=== PATIENT | female | born 1945 | race Caucasian/White ===

== ENCOUNTER → 2017-09-24 09:00 | Outpatient (CLI) | payer MEDICARE, SELFPAY ==
[2017-09-24] VITALS (7 sets, daily range): BP systolic 100–138; BP diastolic 59–77; PULSE 68–81; RESP 16–18; TEMP 36.3–36.9; O2SAT 95–98; BMI 31.5
== END ==
PROVIDERS: Family Provider Internal Medicine; PCP Internal Medicine; Visit Provider Internal Medicine
DX: D64.9 Anemia, unspecified (principal)
CPT/HCPCS: 36415; 36430; 86850; 86900; 86920; 86922; J7040; P9016; A4216

== ENCOUNTER 2019-01-24 15:35 | Emergency (ER) | payer MEDICARE, SELFPAY ==
[2019-01-24 15:36] VITALS: BP 181/87; PULSE 90; RESP 18; TEMP 37.3; O2SAT 98; BMI 32.3
--- NOTE | 2019-01-24 15:45 | CT_ITS ---
STUDY: CT BRAIN WITHOUT CONTRAST REASON FOR EXAM: Female, 73 years old. Fall. Pain. RADIATION DOSAGE (If Supplied By Facility): CTDIvol = ( 44.99 ) mGy, DLP = ( 762.36 ) mGycm TECHNIQUE: Transaxial CT imaging of the brain was performed without administration of intravenous contrast material. Individualized dose optimization techniques were used for this CT. COMPARISON: None. FINDINGS: There is no acute bleed or infarct. There are chronic ischemic and atrophic changes. The ventricles are normal in configuration. There is no hydrocephalus. The visualized paranasal sinuses are clear. The mastoid air cells are well aerated. There is no skull fracture. CT/Brain/Head without Contrast IMPRESSION: No acute intracranial abnormality. Chronic ischemic and atrophic changes. Electronically Signed: Daquan Arthur, at 16:27 EDT Tel , Service support ,
--- NOTE | 2019-01-24 15:46 | RAD_ITS ---
STUDY: X-RAY - LEFT RADIUS AND ULNA REASON FOR EXAM: Female, 73 years old. Fall TECHNIQUE: 2 view(s) of the forearm. COMPARISON: None. FINDINGS: There are angulated, displaced fractures in the distal aspect of the left radius and left ulna. There is approximately 1.5 cm a fracture fragment overlap of the ulna and 2 cm of the fracture fragment overlap of the radius. The remainder of the visualized osseous structures are intact. There are no radiodense foreign bodies. RAD/Forearm 2 Views IMPRESSION: Angulated, displaced fractures in the distal left radius and left ulna with fracture fragment overlap. Electronically Signed: Daquan Arthur, at 16:31 EDT Tel , Service support ,
[2019-01-24] MEDS: Ondansetron 4 MG/2 ML Vial IV (15:58)
[2019-01-24] MEDS: Morphine 4 MG/ML Syringe IV ×2 (15:59→16:48)
[2019-01-24 16:41] VITALS: BP 171/74; PULSE 90; RESP 16; O2SAT 98
--- NOTE | 2019-01-24 17:07 | ED.DCSUM_ITS ---
- ER Visit Summary Date of Service: 01/24/19 Chief Complaint: [Fall and injury to left arm] History of Present Illness: The patient is a 73 F [presents to the emergency department after sustaining a fall this afternoon while clocking and at work. Patient states that she tripped over her feet and fell injuring her left arm. Patient did bump her face on the ground but no loss of consciousness. She denies any neck pain. She denies any chest pain or abdominal pain. Patient is right-hand dominant. Patient not on any blood thinners. Patient has history of hypertension and high cholesterol.] Physical Examination: [HEENT-PERRLA, EOMI. Cranial nerves II through XII grossly intact. TMs clear. Mucous membranes moist. No adenopathy. He has some mild tenderness over the left cheekbone with no deformity. Cardiovascular-regular rate and rhythm without murmur or ectopy Lungs-clear to auscultation, chest wall stable without crepitus or subcu emphysema Abdomen-normoactive bowel sounds, soft, nontender, no rebound or rigidity, no peritoneal signs. Extremities-intact ?4, normal range of motion, normal pulses. Left forearm- patient does have soft tissue swelling and obvious deformity over the mid forearm. Patient has no open areas to the skin noted. She is neurovascular intact with normal range of motion of all digits. No pain at the elbow.] Test Results: [CT scan of the brain without contrast showed chronic involutional changes. X-rays of the left forearm showed fractures of the distal radius and ulna 100% displaced with bayonet apposition.] Emergency Department Course and Treatment: [Case was discussed with orthopedic surgeon on-call evaluated the x-rays and recommended I splint the patient and he will see the patient in the office tomorrow. Patient was placed in a AP short arm splint and given a sling.] Patient was medicated with morphine and Zofran. Treatment Plan: [She will be given a prescription for Percocet and she will follow-up with orthopedics tomorrow] Disposition: [Discharged home in stable condition] Impression: [Left radius and ulna fractures] This note was generated with Wummelboxation software. It may contain incorrect words, spelling, and punctuation that were not noted in review of the chart prior to signing ED Disposition - Plan for ED Patient: Referrals: Lay Kaur MD [Primary Care Provider] -
--- NOTE | 2019-01-24 17:10 | ED.DEP ---
ED Disposition - Plan for ED Patient: Instructions: FALL, Mechanical, COLLES FRACTURE, Reduction Required Prescriptions: Oxycodone HCl/Acetaminophen [Percocet 5/325] 1 tab PO Q6H PRN PRN 5 Days #20 tab PRN Reason: Pain Prescription Printed Referrals: Lay Kaur MD [Primary Care Provider] - Mauro Farrar DO [STAFF PHYSICIAN] - 1 Day
[2019-01-24 17:34] VITALS: BP 158/78; PULSE 81; RESP 16; O2SAT 97
== END 2019-01-24 17:59 | disposition home or self-care (01) ==
PROVIDERS: Emergency Provider Emergency Medicine; Family Provider Internal Medicine; PCP Internal Medicine
DX: S52.502A Unspecified fracture of the lower end of left radius, initial encounter for closed fracture (principal); S52.692A Other fracture of lower end of left ulna, initial encounter for closed fracture; W01.0XXA Fall on same level from slipping, tripping and stumbling without subsequent striking against object, initial encounter; I10 Essential (primary) hypertension; E78.00 Pure hypercholesterolemia, unspecified
CPT/HCPCS: 70450; 73090; 96374; 96375; 96376; 99285; A4216; J2405

== ENCOUNTER 2019-01-26 12:12 | Day surgery (SDC) | payer MEDICARE, SELFPAY ==
[2019-01-25 11:18] VITALS: BMI 32.3
[2019-01-26] VITALS (11 sets, daily range): BP systolic 102–159; BP diastolic 47–94; PULSE 68–104; RESP 12–18; TEMP 36.8–37.2; O2SAT 91–97; BMI 30.1
--- NOTE | 2019-01-26 07:19 | PCM.HP.BLA ---
History and Physical Date of Admission: 01/26/19 Intake Vital Signs 01/25/19 Body Mass Index (BMI) 32.3 Intake Visit Reasons: left forearm Chief Complaint: left arm fracture Accompanied by: Son Is patient in pain?: Yes Pain scale (1-10): 8 Allergies pseudoephedrine [From Sudafed] Allergy (Intermediate, Verified 01/25/19 10:14) Rash acetaminophen [From Vicodin] Adverse Reaction (Verified 01/25/19 10:14) Other hydrocodone [From Vicodin] Adverse Reaction (Verified 01/25/19 10:14) Other Medications Amlodipine Besylate 2.5 mg PO DAILY 01/24/19 [History Confirmed 01/25/19] Citalopram Hydrobromide [Citalopram HBr] 10 mg PO DAILY 01/24/19 [History Confirmed 01/25/19] Lisinopril 10 mg PO DAILY 01/24/19 [History Confirmed 01/25/19] Oxycodone HCl/Acetaminophen [Percocet 5/325] 1 tab PO Q6H PRN PRN 5 Days #20 tab 01/24/19 [Rx Confirmed 01/25/19] Simvastatin 20 mg PO DAILY 01/24/19 [History Confirmed 01/25/19] Zolpidem Tartrate 10 mg PO QHS PRN 01/24/19 [History Confirmed 01/25/19] Aspirin [Aspir 81] 81 mg PO QHS 01/25/19 [History Confirmed 01/25/19] Calcium (Elemental) [Os-Alli 500] 500 mg PO DAILY@0800 01/25/19 [History Confirmed 01/25/19] Cholecalciferol (Vitamin D3) [Vitamin D3] 2,000 unit PO DAILY 01/25/19 [History Confirmed 01/25/19] Cyanocobalamin (Vitamin B-12) [Vitamin B-12] 500 mcg PO DAILY 01/25/19 [History Confirmed 01/25/19] Folic Acid 1 mg PO DAILY 01/25/19 [History Confirmed 01/25/19] Pyridoxine HCl (Vitamin B6) [Vitamin B-6] 250 mg PO DAILY 01/25/19 [History Confirmed 01/25/19] Turmeric Root Extract [Turmeric] 500 mg PO DAILY 01/25/19 [History Confirmed 01/25/19] PFSH Medical History (Updated 01/25/19 @ 11:27 by Simona Banda) Anemia (Acute) High cholesterol (Acute) Osteoporosis (Acute) CKD (chronic kidney disease) (Chronic) HTN (hypertension) (Chronic) Social History (Updated 01/25/19 @ 13:03 by Mauro Farrar DO) Smoking Status: Never smoker HPI left forearm: Details: Parts of this documentation were recorded by a scribe, this documentation accurately reflects the service provided and the decisions made by me, Mauro Farrar DO 01/25/19 1118. AMOR PARISI is a 73 year old F NEW patient here today for left forearm fx. Patient states she works at [employer] and she was rushing to clock in at work and tripped and fell and she but her arm out behind her and she has a fx. Does have numbness and tingling of all of her fingers. Does have osteoporosis. Patient is left handed. ROS Const Reports system reviewed and no additional complaints, except as docu Eyes Reports system reviewed and no additional complaints, except as docu ENT Reports system reviewed and no additional complaints, except as docu Card Reports system reviewed and no additional complaints, except as docu Resp Reports system reviewed and no additional complaints, except as docu GI Reports system reviewed and no additional complaints, except as docu Musc Reports system reviewed and no additional complaints, except as docu, Reports as per HPI Skin/Breast Reports system reviewed and no additional complaints, except as docu Neuro Yes system reviewed and no additional complaints, except as docu Psych Reports system reviewed and no additional complaints, except as docu Endo Reports system reviewed and no additional complaints, except as docu Darron/Lymph Reports system reviewed and no additional complaints, except as docu Aller/Immun Reports system reviewed and no additional complaints, except as docu Ortho Exam Right Wrist/Hand Skin/Wound: Yes Swelling, Yes Ecchymosis Left Wrist/Hand Skin/Wound: Yes Swelling, Yes Ecchymosis, Yes capillary refill normal, No erythema WRIST: No open lesions positive wrinkle sign able to spread fingers slightly significant pain with any attempted motion nontender at the elbow sensation intact but diminished all of the fingers Assessment & Plan Problems 1. Closed displaced transverse fracture of shaft of left radius, initial encounter S52.322A 2. Closed displaced transverse fracture of shaft of left ulna, initial encounter S52.222A Plan Explained that she has a both bone forearm fracture, shaft of radius and ulna. She will need to have an ORIF of each to re-align. Reviewed the surgical procedure to be done tomorrow but that she will be able to work on rom and go to OT after one week. She will have a lifting restrictions of small coffee cup, she will be able to write and move her fingers. Instructed to elevate above her heart to limit any additional swelling. Re-dressed today. Reviewed the pre-operative plans with the patient. Risks and benefits of the procedure were fully explained, including but not limited to infection, neurovascular injury, continued pain, arthritis, stiffness, need for further surgery, re-injury, DVT, PE, general risks of anesthesia, and loss of limb or life. The patient understands all the risks and does wish to proceed with written consent. Follow up a week after surgery for OT and two weeks for suture removal or sooner if pain, swelling, numbness or associated symptoms, or concerns develop. All questions answered. Patient in agreement of plan. Coding Level of Care Code Off vis,new,level 3 Diagnoses Closed displaced transverse fracture of shaft of left radius, initial encounter S52.322A ??Encounter type: initial encounter ??Fracture morphology: transverse ??Fracture type: closed Closed displaced transverse fracture of shaft of left ulna, initial encounter S52.222A ??Encounter type: initial encounter ??Fracture morphology: transverse ??Fracture type: closed I have re-examined the patient. There are no clinical changes since date of exam
--- NOTE | 2019-01-26 12:30 | EKG12_ITS ---
Test Reason : PRE OP Blood Pressure : / mmHG Vent. Rate : 070 BPM Atrial Rate : 070 BPM P-R Int : 168 ms QRS Dur : 090 ms QT Int : 416 ms P-R-T Axes : 115 -24 036 degrees QTc Int : 449 ms Normal sinus rhythm Normal ECG When compared with ECG of 15-MAY-2010 09:31, No significant change was found Confirmed by RODOLFO KITCHEN, SOFIE ([id number]), supervising editor news reel CHIP LANGSTON ([id number]) on 01/29/2019 10:27:44 A M Referred By: Mauro Farrar Confirmed By:MARBELLA REYNOLDS MD
[2019-01-26] MEDS: Lactated Ringers 1,000 ML 100 ML IV ×2 (13:05→18:38)
[2019-01-26 13:15] LABS: Hematocrit 35.3 % (37-47); Hemoglobin 11.6 g/dL (12.0-15.0); Mean Corp Hgb Conc 32.9 g/dL (32-36); Mean Corpuscular Hgb 31.6 pg (27.0-32.0); Mean Corpuscular Volume 96.2 fL (81-99); Mean Platelet Vol. 8.8 fl (6.2-12.0); Platelet Count 300 K/mm3 (150-450); RBC Distribution Width CV 13.8 % (11.6-14.6); RBC Distribution Width SD 49.3 fl (35.1-43.9); Red Blood Count 3.67 M/mm3 (4.2-5.4); White Blood Count 5.8 K/mm3 (4.4-11.0)
[2019-01-26 13:22] LABS: Prothrombin Time (Protime)PT. 13.4 SECONDS (11.7-14.9)
[2019-01-26 13:23] LABS: Partial Thromboplast Time 27.9 Seconds (24.1-36.2)
--- NOTE | 2019-01-26 13:25 | RAD_ITS ---
STUDY: X-RAY CHEST REASON FOR EXAM: Female, 73 years old. Preoperative evaluation. TECHNIQUE: PA and lateral views of the chest. COMPARISON: None. FINDINGS: Hyperinflation. Minimal increased markings at the lung bases suggestive of mild bibasilar scarring. There is no demonstrated pleural abnormality. Normal size heart. Normal mediastinum and loco. Normal visualized pulmonary arteries. There is atherosclerotic tortuosity of the aortic arch and descending thoracic aorta. There are diffuse degenerative changes of the visualized thoracic spine. Normal visualized ribs, clavicles, and shoulders. Moderate size. RAD/Chest PA and Lateral IMPRESSION: Findings suggestive of mild bibasilar scarring. Moderate sized hiatal hernia. Electronically Signed: Avi Lemus, at 14:04 EDT , Service support ,
[2019-01-26 13:35] LABS: AST(SGOT) 25 U/L (15-37); Alanine Aminotransfer ALT/SGPT 38 U/L (13-56); Albumin, Serum 3.2 g/dL (3.2-5.0); Alkaline Phosphatase 82 U/L (45-117); Bilirubin, Direct 0.08 mg/dL (0.00-0.30); Globulin 3.6 g/dL (2.2-4.2); Protein, Total 6.8 g/dL (6.4-8.2)
[2019-01-26] MEDS: Cefazolin 2 GM in 0.9% Normal Saline 100 ML IV (15:59)
--- NOTE | 2019-01-26 16:15 | RAD_ITS ---
STUDY: X-RAY - LEFT RADIUS AND ULNA REASON FOR EXAM: Female, 73 years old. ORIF left radius and ulna. TECHNIQUE: 2 C-arm view(s) of the forearm. 12.8 seconds fluoroscopy time COMPARISON: None. FINDINGS: These images show compression plate and screws along the shafts of the radius and ulna fixating fractures into anatomic alignment and position. Correlate with procedure note. Electronically Signed: Que Hook MD at 22:25 EDT , Service support , RAD/Forearm 2 Views
--- NOTE | 2019-01-26 17:49 | DCINST_ITS ---
Discharge Diet: No Restrictions Call your doctor if you observe: Fever of 101 or Higher, Shortness of breath, Chest pain Additional Instructions: Strict ice and elevation 1 week hand higher than elbow elbow higher than heart this is very important. Encourage finger and elbow range of motion keep splint on clean dry and intact. Call with any questions or concerns. Follow-up with Dr. Farrar 1 week for splint removal and start physical therapy at that time. With any questions or concerns Allergies/Adverse Reactions: Allergies pseudoephedrine [From Sudafed] Allergy (Intermediate, Verified 01/25/19 10:14) Rash acetaminophen [From Vicodin] Adverse Reaction (Verified 01/25/19 10:14) Other Crawling out of my skin, couldn't keep me in bed hydrocodone [From Vicodin] Adverse Reaction (Verified 01/25/19 10:14) Other Crawling out of my skin, couldn't keep me in bed Medications to take at Discharge Amlodipine Besylate 2.5 mg PO DAILY 01/24/19 Citalopram Hydrobromide [Citalopram HBr] 10 mg PO DAILY 01/24/19 Lisinopril 10 mg PO DAILY 01/24/19 Oxycodone HCl/Acetaminophen [Percocet 5/325] 1 tab PO Q6H PRN PRN 5 Days #20 tab 01/24/19 Simvastatin 20 mg PO DAILY 01/24/19 Zolpidem Tartrate 10 mg PO QHS PRN 01/24/19 Aspirin [Aspir 81] 81 mg PO QHS 01/25/19 Calcium (Elemental) [Os-Alli 500] 500 mg PO DAILY@0800 01/25/19 Cholecalciferol (Vitamin D3) [Vitamin D3] 2,000 unit PO DAILY 01/25/19 Cyanocobalamin (Vitamin B-12) [Vitamin B-12] 500 mcg PO DAILY 01/25/19 Folic Acid 1 mg PO DAILY 01/25/19 Pyridoxine HCl (Vitamin B6) [Vitamin B-6] 250 mg PO DAILY 01/25/19 Turmeric Root Extract [Turmeric] 500 mg PO DAILY 01/25/19 Oxycodone HCl/Acetaminophen [Percocet 5/325] 1 - 2 tab PO Q4H PRN PRN 5 Days #50 tab 01/26/19 The following prescriptions were given: Oxycodone HCl/Acetaminophen [Percocet 5/325] 1 - 2 tab PO Q4H PRN PRN 5 Days #50 tab PRN Reason: Pain Transmission Status: Received by [facility] #30 Primary Care Physician: Lay Kaur MD [Primary Care Provider] - Test Results: Test results from this visit will be discussed in further detail at your follow- up appointment, if applicable. Please Follow Up With: Mauro Farrar DO - 1 week
--- NOTE | 2019-01-26 17:50 | OP.PCM_ITS ---
Report of Operation Date of Procedure: 01/26/19 Description of Surgical Findings:: Preoperative diagnosis: Displaced complete fractures of both radial and ulnar shaft Postoperative diagnosis: Same Procedure: ORIF of radius and ORIF of ulnar shaft Implants: Synthes titanium 3.5 LCDC plates 6-hole x2 Allergy: Nickel Tourniquet time: 60 minutes Complications: None Indication for procedure: 73-year-old female patient who had a fall tripping on her own feet at work landing onto an outstretched hand to proceed emergency room department where x-rays demonstrated a both bone forearm fracture that was completely displaced she was sent to the orthopedic office where I saw her and put her on the schedule for the following day. we discussed risks benefits and alternatives of conservative versus surgical intervention. Including the risk of bleeding infection nerve artery tissue damage need for further surgery co ntinued pain postoperative stiffness need for postoperative physical therapy and the expected postoperative course. Procedure: The patient was met in the preoperative holding area the operative extremity was identified by both patient and physician and marked. Patient was met by anesthesia she was brought back to the operating room on a wheeled cart and transferred to the operating table in the supine position anesthesia was started. A well-padded tourniquet was placed on the upper arm of the operative extremity. She was prepped and draped in the usual sterile fashion. A Time out was called to ensure the proper patient procedure and extremity were being contemplated. A 15 blade scalpel was used to make a linear incision over the FCR tendon this was carried down through the skin and subcutaneous tissue. The level between FCR and brachioradialis was identified the radial artery was able to be kept with a mobile wad as a fracture was not exceedingly proximal the pronator teres and ask her pollicis longus were traumatically torn from the radius. Fracture was easily identified and with the use of lobster claws reduction was performed followed by the application of a 6-hole LCDC plate. Being a titanium set due to her nickel allergy there was only 6 14 mm screws and due to her age I decided to put 2 cortical screws adjacent to the fracture and 2 locking screws in the middle of the plate on each and and cortical screws on both ends of the plate. Excellent reduction and fixation was achieved attention was turned towards the ulna direct lateral approach was used between the extensor and flexor carpi ulnaris fracture was reduced process was repeated final fluoroscopic images were taken and saved to the PACS system thorough irrigation of both wounds were performed followed by deep closure subcutaneous closure with Vicryl and luisito in the skin. A injection with quarter percent Marcaine with epinephrine was injected into both incisional sites and a volar plaster splint was applied patient tolerated the procedure well there is no intraoperative complications all counts were correct she was brought to the PACU in stable condition
== END 2019-01-26 20:12 | disposition home or self-care (01) ==
LOC: SDC 12:14 → AC 12:16
PROVIDERS: Anesthesiology; Family Provider Internal Medicine; PCP Internal Medicine; Referring Provider Orthopaedic Surgery; Visit Provider Orthopaedic Surgery
PROC: (CPT 25515; principal; 2019-01-26 13:45)
DX: S52.222A Displaced transverse fracture of shaft of left ulna, initial encounter for closed fracture (principal); S52.322A Displaced transverse fracture of shaft of left radius, initial encounter for closed fracture; W01.0XXA Fall on same level from slipping, tripping and stumbling without subsequent striking against object, initial encounter; I12.9 Hypertensive chronic kidney disease with stage 1 through stage 4 chronic kidney disease, or unspecified chronic kidney disease; N18.9 Chronic kidney disease, unspecified; M81.0 Age-related osteoporosis without current pathological fracture; K44.9 Diaphragmatic hernia without obstruction or gangrene; Z79.82 Long term (current) use of aspirin; Z88.5 Allergy status to narcotic agent
CPT/HCPCS: 25515; 64450; 36415; 71046; 73090; 76000; 80076; 85027; 85610; 85730; 93005; C1713; J7120; J2405

== ENCOUNTER 2019-03-22 14:00 | Outpatient (RCR) | payer MEDICARE, SELFPAY ==
[2019-01-25 11:18] VITALS: BMI 32.3
[2019-02-01 13:14] VITALS: BMI 30.1
--- NOTE | 2019-02-11 12:48 | HP.OTEVAL_ITS ---
Patient's Visit Information DREAD PARISI is a 73 year old F, referred to Occupational Therapy by Mauro Farrar DO, with a diagnosis of S/P L ORIF raidus and ulna. Date of Evaluation: 02/11/19 Occupational Therapist: Ashia Pruitt, OTR/L - Subjective Subjective: Dread Sherwood was referred to OT s/p fracture of L ulna and radius from mechanical fall at [facility]. She works at [employer] part-time and noted was hurrying to clock in and tripped and fell. She is left handed and injury has occured to L side. Noted previously retired for 7 years and working 4 hour shifts helps 'keep her moving'. - ADLs Dressing: Bra, Button shirt, Pants, Socks, Shoes Fasteners: Buttons, Zippers, Snaps Eating: Use silverware, Cut food Bathing: Handle washcloth & soap, Wash hair, Squeeze shampoo bottle Toileting: Manage clothing Kitchen: Chop with knife, Peel fruits & vegetables, Open jars, Open bottle caps, Ziplock bags, Lift gallon of milk, Pour from pitcher, Lift saucepan, Take dish out of oven, Load/unload paralegal legal secretary, Place dish in microwave Household: Sweep/mop, Dust, Laundry Yard: Mow lawn, [place], [place], Use pruners Miscellaneous: Use remote control, Use cell phone, Unlock front door, Handle money (change), Hold change, Take things out of wallet, Open envelope, Carry shopping bag, Write, Turn pages in book, Use computer keyboard, Drive, Function in drive through window - Pain left wrist 7 Pain Intensity Range: 2, 9 - Objective Concerns: She will only complete 1x session per week; due to 25 dollar copay she is unwilling to come in more times a week at this time and would prefer to completed majoirty of exercises at home. - ROM Forearm: sup L 0-70, R 0-86; pro L 0-49, R 0-76 Wrist: flexion L 0-42, R 0-60; ext L 0-39, R 0-44; ulnar dev L 0-17, R 0-29; ROM Comments: Radial dev: L 0-7, R 0-15. She is able to make full composite fist. 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 - Edema Wrist: R figure 8 15.5 inches, L figure 8: 16 inches Other: Wrist: R circumference 6.4;L circumference 6.8 inches; pocked edema noted. - Sensation Thumb: R 2.38, L 2.38 Index: R 2.38, L 2.38 Middle: R 2.38, L 2.38 Ring: R 2.38, L 2.38 Little: R 2.38, L 2.38 - Nine Hole Peg Right: 21.05 s Left: 25.30 s Comments: L hand dominant - Quick DASH-Disab of Arm,Shoulder& Hand Quick DASH Score: 90.0000 - Goals Goal:: Perkaileen to increased L golf cart mechanic strength by 20- 25 lbs to promote increased strength and ROM 4/5 trials 80% of the time to promote returning to PLOF and ability to complete job related tasks by d/c. Goal:: Presley to complete increased ROM of L wrist by 5-10 degrees in all plans for ADL/IADLs 4/5 trials 80% of the time by d/c. Goal:: Dread to have no jane than 0-1/10 pain in L wrist for ADL/IADLs related tasks 4/5 trials 80% of the time by d/c. Goal:: Youy to be mod I to complete edema reduction of L wrist to promote increased ROM 4/5 trials 80% of the time by d/c. Goal:: Presley to be (I) to complete all ADl/IADls at [facility] including pealing fruits & vegetables, fasteners, etc. 4/5 trials 80% of the time to promot returning to PLOF by d/c. Goal:: Presley to be mod I to complete daily HEP rotuine to promote strength and endurance 4/5 trials 80% of the time by d/c. - Rehabilitation General Assessment: Dread Sherwood Is s/p L ORIF of radius and ulna due to mechanical fall at work. She noted fall occured prior to clock in as she was hurrying to complete task. As a result of fall she has also bruise ribs and noted increased pain in ribs and L wrist. She is L hand dominant. Perky exhibit poor ROM and strength due to fall. She would benefit from skilled OT services 1x weekly for the next 4 -6 weeks. Rehabilitation Potential: Good - Anticipated Interventions Anticipated Interventions: A/AAROM/PROM, Strengthening, Edema Control, Scar Care, Massage, Wound Care, Modalities, Orthoses, Joint Protection/Energy Conservation, Ergonomic Education, Fine Motor Coord/Justin, ADL Training, Caregiver Training, Home Program - Visit Plan Frequency: 1x/Week Duration: 4-6 Weeks General Plan: Perky to complete ROM, Strengthening with PRE, edema management techniques, and general conditioning to promote returning to PLOF. TEXT: Thank you for the opportunity to evaluate your patient. For Medicare and Medicare HMO plans, please review the plan of care and approve it. It will need to be FAXED BACK to us at [phone] for Medicare purposes. Please let me know if there are questions or concerns regarding this plan of care. Physician Signature: Date:
--- NOTE | 2019-03-03 13:00 | HP.OTCOM ---
OT Communication Note 03/03/[address] Mauro Farrar, DO Completed additional measurements today 03/03/19 as she has follow up with Dr. Farrar: ROM Wrist - flexion: R WFL, L 0-56 - extension: R WFL, L 0-40 - supination: R WFL, L 0-53 - ulnar deviation: R WFL, L 0-35 - radial deviation: R WFL, L 0-16 Strength: Barbed Wire Machine Operator R WFL, L 26 lateral R WFL, L 2 tripod R WFL, L 4 pincer R WFL, L 2 lbs Increased tenderness with palpation of L radius, hard end feel noted at about 3 inches from distal radius head, around shaft. Additionally, increased pocketed edema around ulna likely to displacement. In general, ROM and strength is progressing but some decreased pinch noted. Will continue POC set up at evaluation with further reassessment in about 1-2 weeks. Sincerely, Ashia Pruitt, OTR/L Contact Information
--- NOTE | 2019-03-22 15:06 | HP.OTREVAL ---
Mauro Farrar, DO, It has been my pleasure to treat DREAD PARISI over the last 7 visits for S/P L ORIF raidus and ulna. Please see the progress note below for an update on the occupational therapy plan of care! Subjective: Arrived and noted that today is pretty good day. She has decided to return to work 04/05/19. She noted that she will be returning to regular shift of 4 hours increments for 2-3x days per week. Feels 80-85% back to PLOF. Objective/Function: Completed new measurements today 03/22/19 and are as follows: ROM: wrist: - flexion: R WFL, L 0-68. - extentsion: R WFL, 0-39. - Supination: R WFL, L 0-62. - radial devaition: R WFL, L 0-21. - ulnar deviation: R WFL, L 0-31. 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 - lateral R 5, L 2. - tripod R 6, L 5. - pincer R 2, L 3. She has progressed since inital evaluation. Increased MP hyperext noted on left thumb. She is left hand dominant. Plan Frequency: Monthly Duration: 2 Months Visits in this POC: 2 Plan: OT to keep chart open for the next month. She is to continue HEP as instructed with additional thumb-based exercises. If all is going well when returning to work is going as planned she is to let OT know and chart will be d/c'd if not she is to return and further assessment and problem solving to occur to manage pain. 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 Goal:: Perky to complete increased ROM of L wrist by 5-10 degrees in all plans for ADL/IADLs 4/5 trials 80% of the time by d/c. Goal:: Dread to have no jane than 0-1/10 pain in L wrist for ADL/IADLs related tasks 4/5 trials 80% of the time by d/c. Goal:: Perky to be mod I to complete edema reduction of L wrist to promote increased ROM 4/5 trials 80% of the time by d/c. Goal:: Perky to be (I) to complete all ADl/IADls at PLOF including pealing fruits & vegetables, fasteners, etc. 4/5 trials 80% of the time to promot returning to PLOF by d/c. Goal:: Perky to be mod I to complete daily HEP rotuine to promote strength and endurance 4/5 trials 80% of the time by d/c. Anticipated Interventions Anticipated Interventions: A/AAROM/PROM, Strengthening, Edema Control, Scar Care, Massage, Wound Care, Modalities, Orthoses, Joint Protection/Energy Conservation, Ergonomic Education, Fine Motor Coord/Justin, ADL Training, Caregiver Training, Home Program Please do not hesitate to contact me at [phone] by phone or if you have questions or concerns regarding this new plan of care! Sincerely, Ashia Pruitt, OTR/L
--- NOTE | 2019-05-04 13:06 | HP.OTDCSUM ---
HP - OT D/C Summary It has been my pleasure to treat DERAD PARISI under orders from Mauro Farrar DO, for the diagnosis of S/P L ORIF raidus and ulna for a total of 7 visit(s). Please see the following information for a summary of their discharge status. - Overall Improvement % Improvement: 85 - Objective Objective/Function: Completed new measurements today 03/22/19 and are as follows: ROM: wrist: - flexion: R WFL, L 0-68. - extentsion: R WFL, 0-39. - Supination: R WFL, L 0-62. - radial devaition: R WFL, L 0-21. - ulnar deviation: R WFL, L 0-31. Strength: - planning consultant: R 43, L 29. - lateral R 5, L 2. - tripod R 6, L 5. - pincer R 2, L 3. She has progressed since inital evaluation. Increased MP hyperext noted on left thumb. She is left hand dominant. - Goals Patient Goals: Regain Mobility, Regain Strength, Decrease Pain, Return to Work, Decrease Swelling/Stiffness, Improve Fine Motor Skills, Use Hand/Wrist/Arm Normally Again, Sleep Better, Increase ROM, Be More Independent in ADLS, Resume Former Household Responsibilities (Cooking,Cleaning,Yard, etc.), Resume Hobbies Goal:: Perky to increased L planning consultant strength by 20- 25 lbs to promote increased strength and ROM 4/5 trials 80% of the time to promote returning to PLOF and ability to complete job related tasks by d/c. Goal:: Perky to complete increased ROM of L wrist by 5-10 degrees in all plans for ADL/IADLs 4/5 trials 80% of the time by d/c. Goal:: Dread to have no jane than 0-1/10 pain in L wrist for ADL/IADLs related tasks 4/5 trials 80% of the time by d/c. Goal:: Perky to be mod I to complete edema reduction of L wrist to promote increased ROM 4/5 trials 80% of the time by d/c. Goal:: Perky to be (I) to complete all ADl/IADls at PLOF including pealing fruits & vegetables, fasteners, etc. 4/5 trials 80% of the time to promot returning to PLOF by d/c. Goal:: Perky to be mod I to complete daily HEP rotuine to promote strength and endurance 4/5 trials 80% of the time by d/c. - Plan Plan: She did not return due to pain and chart will be d/c'd. - D/C Information If there are questions or concerns regarding this patient's occupational therapy, please fell free to call me at [phone]. Thank you for the referral of this patient. Sincerely, Ashia Pruitt, OTR/L
== END 2019-03-22 19:00 | disposition home or self-care (01) ==
LOC: OT 14:00
PROVIDERS: Family Provider Internal Medicine; PCP Internal Medicine; Referring Provider Orthopaedic Surgery; Visit Provider Orthopaedic Surgery
DX: Z98.890 Other specified postprocedural states (principal)
CPT/HCPCS: 97110; 97140; 97166; 97168; 97530

== ENCOUNTER 2020-06-16 12:01 | Emergency (ER) | payer MEDICARE, SELFPAY ==
[2019-03-08 10:16] VITALS: BMI 30.1
[2020-06-16 12:07] VITALS: BP 131/60; PULSE 67; RESP 16; TEMP 36.7; O2SAT 95; BMI 33.7
[2020-06-16 12:54] VITALS: BP 127/60; PULSE 78; RESP 20; O2SAT 92
--- NOTE | 2020-06-16 13:01 | EKG12_ITS ---
Test Reason : DIZZY Blood Pressure : / mmHG Vent. Rate : 066 BPM Atrial Rate : 066 BPM P-R Int : 186 ms QRS Dur : 106 ms QT Int : 440 ms P-R-T Axes : 040 -22 023 degrees QTc Int : 461 ms Normal sinus rhythm Normal ECG Confirmed by RODOLFO KITCHEN, SOFIE ([id number]), editor dictionary CHIP LANGSTON ([id number]) on 06/19/2020 11:39:56 A M Referred By: ED Confirmed By:MARBELLA REYNOLDS MD
--- NOTE | 2020-06-16 13:07 | RAD_ITS ---
STUDY: X-RAY CHEST REASON FOR EXAM: Female, 74 years old. SYNCOPE, VOMITING -- HTN TECHNIQUE: Single AP portable view of the chest. COMPARISON: Comparison is made with prior study dated 01/26/2019. FINDINGS: EKG electrodes are seen. Hyperinflation. The lungs are clear. There is no demonstrated pleural abnormality. There is mild cardiac enlargement. Normal mediastinum and loco. Normal visualized pulmonary arteries. There is atherosclerotic calcification of the aortic arch with tortuosity. There are diffuse degenerative changes of the visualized thoracic spine. Normal visualized ribs, clavicles, and shoulders. Moderate sized hiatal hernia. RAD/Chest 1 View (Portable) IMPRESSION: Cardiomegaly. Hiatal hernia. Electronically Signed: Avi Lemus MD at 13:32 EST , Service support ,
[2020-06-16 13:18] VITALS: PULSE 75; RESP 20; O2SAT 95
[2020-06-16 13:19] LABS: Absolute Lymphocyte Count 2.76 X10^3/uL (0.83-4.51); Basophil# 0.05 X10^3/uL; Basophil% 0.6 % (0-1); Eosinophil# 0.19 X10^3/uL; Eosinophils% 2.4 % (0-5); Hematocrit 39.5 % (37-47); Hemoglobin 12.6 g/dL (12.0-15.0); Lymphocyte # 2.76 X10^3/ul (4.0); Mean Corp Hgb Conc 31.9 g/dL (32-36); Mean Corpuscular Hgb 29.7 pg (27.0-32.0); Mean Corpuscular Volume 93.2 fL (81-99); Mean Platelet Vol. 9.1 fl (6.2-12.0); Monocyte% 10.1 % (0-10); NRBC Flagged by Analyzer 0 % (0-5); Neutrophil # 4.03 X10^3/uL (2.7-7.7); Neutrophil % 51.1 % (47-70); Platelet Count 447 K/mm3 (150-450); RBC Distribution Width CV 14.6 % (11.6-14.6); RBC Distribution Width SD 50.1 fl (35.1-43.9); Red Blood Count 4.24 M/mm3 (4.2-5.4); White Blood Count 7.9 K/mm3 (4.4-11.0)
[2020-06-16 13:28] LABS: D-Dimer Quantitative (DVT/PE) 1.64 FEU/ug/m (0.27-0.49)
[2020-06-16 13:33] VITALS: BP 128/67
[2020-06-16 13:33] LABS: AST(SGOT) 15 U/L (15-37); Alanine Aminotransfer ALT/SGPT 19 U/L (13-56); Albumin, Serum 3.8 g/dL (3.2-5.0); Alkaline Phosphatase 84 U/L (45-117); Anion Gap 6 (5-15); BUN 20 mg/dL (7-18); BUN/Creat Ratio 11.8 RATIO (10-20); Calcium,Total 9.4 mg/dL (8.5-10.1); Chloride 108 mmol/L (98-107); Creatinine, Serum 1.69 mg/dL (0.55-1.02); EST Glomerular Filtration Rate 31 mL/min (>60); Est Glom Filt Rate - Afr Amer 38 mL/min (>60); Estimated Creatinine Clearance 23.43 ml/min; Globulin 3.7 g/dL (2.2-4.2); Glucose 110 mg/dL (74-106); Potassium 3.3 mmol/L (3.5-5.1); Protein, Total 7.5 g/dL (6.4-8.2); Sodium Level 141 mmol/L (136-145)
[2020-06-16 13:51] LABS: Bacteria 0 SEEN /hpf (None Seen); Mucous, Urine 0 SEEN /hpf (<or=2+); Red Blood Cells-Urine 0 SEEN /hpf (0-5)
--- NOTE | 2020-06-16 13:59 | CT_ITS ---
STUDY: CTA CHEST REASON FOR EXAM: Female, 74 years old. SYNCOPE HIT HEAD. ELEVATED D DIMER RADIATION DOSAGE (If Supplied By Facility): CTDIvol = ( 16.89 ) mGy, DLP = ( 628.17 ) mGycm TECHNIQUE: The examination was performed with the intravenous administration of IV 100ML ISOVUE 370. Post-processing of the angiographic images was performed, with multiplanar reformation and 3D reconstruction. Individualized dose optimization techniques were used for this CT. COMPARISON: Comparison is made with prior chest radiograph done earlier in the day. FINDINGS: Normal enhancement of the main pulmonary artery and right and left pulmonary arteries. Normal enhancement of the bilateral peripheral pulmonary arteries. There is no demonstrated pulmonary embolism. Normal thoracic aorta and visualized great vessels. There is no demonstrated aortic dissection. Normal heart and pericardium. Normal mediastinum. Normal hilar regions. Normal visualized trachea and bronchi. The lungs are well expanded. Normal pulmonary parenchyma. Normal pleura. Normal chest wall structures. There are degenerative changes of thoracic spine. Prior cholecystectomy. Moderate-sized hiatal hernia. CT/CTA Chest W/WO Contrast IMPRESSION: Moderate sized hiatal hernia. No acute pulmonary abnormality is seen. Electronically Signed: Avi Lemus MD at 14:33 EST , Service support ,
[2020-06-16 14:04] LABS: Color, Urine Yellow (Yellow); Glucose, Dipstick Normal (Normal); Ketone-Dipstick Negative (Negative); Leukocyte Esterase-Dipstick 25 /ul (Negative); Nitrite-Dipstick Negative (Negative); Occult Blood-Urine Negative /ul (Negative); Protein-Dipstick 15 mg/dl (Negative); Urine Bilirubin Dipstick Negative (Negative); Urine Clarity Sl. Cloudy (Clear); Urine Urobilinogen Normal (Normal); Urine pH 6.5 (5.0 - 8.0)
--- NOTE | 2020-06-16 14:10 | CT_ITS ---
STUDY: CT BRAIN WITHOUT CONTRAST REASON FOR EXAM: Female, 74 years old. SYNCOPAL EPISODE. HIT HEAD. RADIATION DOSAGE (If Supplied By Facility): CTDIvol = ( 60.81 ) mGy, DLP = ( 998.67 ) mGycm TECHNIQUE: Transaxial CT imaging of the brain was performed without administration of intravenous contrast material. Individualized dose optimization techniques were used for this CT. COMPARISON: Comparison is made with prior examination is 01/24/2019. FINDINGS: Normal soft tissue structures. Normal calvarium. There is mild cerebral atrophy with widening of the extra-axial spaces and ventricular dilatation. There are areas of decreased attenuation within the white matter tracts of the supratentorial brain, consistent with microvascular disease changes. 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 Normal brainstem. Normal cerebellum. There is no intracranial hemorrhage. There are no findings of an acute ischemic infarction. Normal visualized paranasal sinuses. CT/Brain/Head without Contrast IMPRESSION: Chronic involutional changes of the brain. Electronically Signed: Avi Lemus MD at 14:31 EST , Service support ,
[2020-06-16 14:11] LABS: Squamous Epithelial Cells - UA 0-5 SEEN /hpf (5-10); White Blood Cells 0-5 SEEN /hpf (0-5)
--- NOTE | 2020-06-16 14:53 | ED.VISSUMM ---
- ER Visit Summary Date of Service: 06/16/20 Chief Complaint: Syncope History of Present Illness: The patient is a 74 F who presents with a syncopal episode that occurred today. Patient states she was at work. Patient states she felt lightheaded and felt like she was going to pass out. Patient states she fell backwards and hit her head. Patient is unsure how long she was out for but thinks it was brief. Patient denies any chest pain or palpitations. Patient denies any shortness of breath or cough. Patient admits to some nausea and vomiting after the episode. Patient also admits to some mild neck pain after the episode. Patient denies any fevers or chills. Physical Examination: Vital signs are stable. Patient is afebrile. Patient is in no acute distress. Oral mucosa is pink and moist. Neck is supple. Trachea is midline. There is no JVD noted. Heart was regular rate and rhythm. Lungs are clear and equal bilaterally. Abdomen is soft. Bowel sounds are normal. There is no tenderness. There is no rebound or guarding noted. Skin is warm dry. Cranial nerves II through XII are intact. There are no focal motor or sensory deficits noted. There is mild tenderness over the occipital scalp. There is no laceration. There is no hematoma. There is no bony crepitance or step-off. Extremities are intact. There is no calf tenderness or edema. There is some mild tenderness over the posterior aspect of the left hip. There is good range of motion of the left hip. There is no deformity noted. Test Results: EKG was obtained. On my interpretation, there is normal sinus rhythm with a rate of 66. There are no acute ST or T wave changes. Portable 1 view chest x-ray was obtained. On my interpretation, lung almanzar are clear. There is cardiomegaly. Bony thorax is normal. There is no acute process noted. CT scan of the brain was obtained. There is no acute intracranial abnormality. This was interpreted by the radiologist and reviewed by myself. CBC and basic metabolic profile were obtained. Creatinine was slightly elevated at 1.69. BUN was 20. Urinalysis does not show any evidence of urinary tract infection. Troponin was normal. D-dimer was elevated at 1.64. Because of this, a CTA of the chest was obtained. There is no evidence of pulmonary embolism or aortic dissection. Emergency Department Course and Treatment: Patient was given IV fluids. Patient is feeling better on reevaluation. Patient is low risk according to the [place] syncope criteria for adverse event. Patient was instructed to use ice to her head and left hip. Patient was instructed to take Tylenol or ibuprofen as needed for pain. Patient was instructed to follow-up with her primary care physician in 5 to 7 days for further evaluation. Patient understood and was agreeable with the plan. All questions were answered. Disposition: Discharge home Impression: 1. Syncope 2. Closed head injury This note was generated with [employer] dictation software. It may contain incorrect words, spelling, and punctuation that were not noted in review of the chart prior to signing ED Disposition - Plan for ED Patient: Disposition: Home or Assisted Living Diagnosis: Syncope, Head injury Instructions: ED Fainting, Uncertain Cause, ED Head Injury (Adult) Referrals: Lay Kaur MD [Primary Care Provider] - 5-7 Days
[2020-06-16 15:07] VITALS: BP 130/92; PULSE 107; RESP 16; O2SAT 97
--- NOTE | 2020-06-16 15:07 | ED.RN ---
IV DC'ED, CATHETER INTACT, SMALL GAUZE DRESSING PLACE. DISCHARGE INSTRUCTIONS GIVEN TO AND REVIEWED WITH PATIENT, PATIENT DENIES QUESTIONS OR CONCERNS AND VOICES UNDERSTANDING OF DISCHARGE INSTRUCTIONS. PT AMBULATES OUT OF ROOM WITHOUT DIFFICULTY.
== END 2020-06-16 15:08 | disposition home or self-care (01) ==
PROVIDERS: Emergency Provider Emergency Medicine; PCP Internal Medicine
DX: S09.90XA Unspecified injury of head, initial encounter (principal); R55 Syncope and collapse; I10 Essential (primary) hypertension; E78.00 Pure hypercholesterolemia, unspecified; Z79.899 Other long term (current) drug therapy; W18.30XA Fall on same level, unspecified, initial encounter; Y93.89 Activity, other specified; Y92.89 Other specified places as the place of occurrence of the external cause; Y99.0 Civilian activity done for income or pay
CPT/HCPCS: 70450; 71045; 71275; 80053; 81001; 84484; 85025; 85379; 93005; 96360; 96361; 99285; J7030; J7040; Q9967; A4216

== ENCOUNTER 2023-09-11 16:33 | Outpatient (CLI) | payer MEDICARE, SELFPAY ==
--- NOTE | 2023-09-11 16:55 | CT_ITS ---
CT RIGHT LOWER EXTREMITY WITH 3-D IMAGING CLINICAL INDICATION: Templating for right TKA. TECHNIQUE: Axial CT images of the right lower extremity was performed without IV contrast material. Coronal and sagittal reformats were provided. RADIATION DOSAGE (If Supplied By Facility): CTDIvol = ( 24.51 ) mGy, DLP = ( 1686.65 ) mGycm COMPARISON: Right knee radiographs dated 08/25/2023 FINDINGS: Bones: There is mild degenerative arthrosis of the right hip joint. There is tricompartment degenerative arthrosis of the right knee joint, most pronounced in the lateral femorotibial compartment. Unremarkable right ankle. Osseous structures are intact without evidence of fracture or dislocation. No lytic or blastic osseous masses. Soft Tissues: There is chronic sigmoid diverticulosis without acute diverticulitis. There are calcified uterine fibroids. The deep soft tissue structures are unremarkable. The superficial soft tissues are unremarkable without evidence of edema, hematoma, or foreign body. 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 Electronically Signed: Saúl Alexander MD at 8:40 EDT ,
--- NOTE | 2023-09-11 17:00 | CT_ITS ---
CT LEFT LOWER EXTREMITY WITH 3-D IMAGING CLINICAL INDICATION: Templating for left TKA TECHNIQUE: Axial CT images of the left lower extremity (including left hip, left knee, and left ankle) was performed without IV contrast material. Coronal and sagittal reformats were provided. RADIATION DOSAGE (If Supplied By Facility): CTDIvol = ( 20.76 ) mGy, DLP = ( 1401.72 ) mGycm COMPARISON: Left knee radiographs dated 08/25/2023. FINDINGS: Bones: There is severe degenerative arthrosis of the left hip joint with [id number], marginal osteophyte formation, and subchondral sclerosis/cyst formation. There is tricompartment degenerative arthrosis of the left knee joint, most pronounced in the patellofemoral compartment. Unremarkable left ankle. Osseous structures are intact without evidence of fracture or dislocation. No lytic or blastic osseous masses. Soft Tissues: There is chronic sigmoid diverticulosis without acute diverticulitis. There are calcified uterine fibroids. The deep soft tissue structures are unremarkable. The superficial soft tissues are unremarkable without evidence of edema, hematoma, or foreign body. 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 Electronically Signed: Saúl Alexander MD at 8:28 EDT ,
[2023-09-11 17:20] LABS: Absolute Lymphocyte Count 1.54 X10^3/uL (0.83-4.51); Absolute Neutrophil Count 4.7 X10^3/uL (2.0-7.7); Basophil# 0.05 X10^3/uL; Basophil% 0.7 % (0-1); Eosinophil# 0.14 X10^3/uL; Hematocrit 39.3 % (37-47); Hemoglobin 12.9 g/dL (12.0-15.0); Lymphocyte # 1.54 X10^3/ul (0.83-4.51); Lymphocyte % 22.3 % (19-41); Mean Corp Hgb Conc 32.8 g/dL (32-36); Mean Corpuscular Hgb 31.7 pg (27.0-32.0); Mean Corpuscular Volume 96.6 fL (81-99); Mean Platelet Vol. 8.8 fl (6.2-12.0); Monocyte# 0.51 X10^3/uL; Monocyte% 7.4 % (0-10); NRBC Flagged by Analyzer 0 % (0-5); Neutrophil # 4.65 X10^3/uL (2.7-7.7); Neutrophil % 67.5 % (47-70); Platelet Count 384 K/mm3 (150-450); RBC Distribution Width CV 12.3 % (11.6-14.6); RBC Distribution Width SD 43.5 fl (35.1-43.9); Red Blood Count 4.07 M/mm3 (4.2-5.4); White Blood Count 6.9 K/mm3 (4.4-11.0)
[2023-09-11 17:26] LABS: Magnesium 2.2 mg/dL (1.6-2.6)
[2023-09-11 17:26] LABS: Prothrombin Time (Protime)PT. 13.1 SECONDS (11.7-14.9)
[2023-09-11 17:27] LABS: Partial Thromboplast Time 28.2 Seconds (24.1-36.2)
[2023-09-11 17:39] LABS: Anion Gap 7 (5-15); BUN 18 mg/dL (7-18); BUN/Creat Ratio 14.3 RATIO (10-20); Calcium,Total 8.8 mg/dL (8.5-10.1); Chloride 109 mmol/L (98-107); Creatinine, Serum 1.26 mg/dL (0.55-1.02); EST Glomerular Filtration Rate 44 mL/min (>60); Est Glom Filt Rate - Afr Amer 53 mL/min (>60); Glucose 172 mg/dL (74-106); Hemoglobin A1c 5.3 % (3.8-5.6); Potassium 3.8 mmol/L (3.5-5.1); Sodium Level 140 mmol/L (136-145)
[2023-09-13 04:07] LABS: Fructosamine 217 umol/L (0-285)
== END 2023-09-11 23:59 | disposition home or self-care (01) ==
LOC: CT 16:36
PROVIDERS: Anesthesiology; PCP Internal Medicine; Referring Provider Orthopaedic Surgery; Visit Provider Orthopaedic Surgery
DX: Z01.818 Encounter for other preprocedural examination (principal); M17.0 Bilateral primary osteoarthritis of knee
CPT/HCPCS: 36415; 73700; 80048; 82985; 83036; 83735; 85025; 85610; 85730; 86850; 86900; 86901; 87081

== ENCOUNTER 2023-09-23 07:34 | Inpatient (IN) | payer MEDICARE, SELFPAY ==
[2023-09-23] VITALS (15 sets, daily range): BP systolic 108–157; BP diastolic 60–94; PULSE 87–104; RESP 12–20; TEMP 36.6–37.3; O2SAT 93–97; BMI 30.8
[2023-09-23] MEDS: Magnesium 1 GM over 15 mins IV (08:19)
[2023-09-23] MEDS: Lactated Ringers 1,000 ML 15 ML IV (08:19)
[2023-09-23] MEDS: Celecoxib 200 MG Capsule 400 MG PO (08:39)
[2023-09-23] MEDS: Acetaminophen 500 MG Tablet 1000 MG PO ×2 (08:39→21:43)
[2023-09-23] MEDS: Scopolamine 1mg/72hr Patch 1 PATCH TD (08:39)
[2023-09-23] MEDS: Gabapentin 600 MG Tablet PO (08:39)
[2023-09-23 08:54] LABS: Bedside Glucose 92 mg/dL (74-106)
--- NOTE | 2023-09-23 10:06 | HP.PCM_ITS ---
History and Physical Date of Admission: 09/23/23 [facility] [address] [place] [address] OFFICE VISIT Date of Service: 08/25/23 MR#: [id number] Acct: [id number] Name: AMOR PARISI Rep #: [id number] : 1945 Provider: Dr. Mauro Farrar DO Age/Sex: 77/F [place] [facility] [place] Status: Signed Intake Vital Signs 01/14/2309:19 08/24/2414:02 Height 5 ft 3 in 5 ft 3 in Weight: 168 lb BMI 29.7 Intake Visit Reasons: BILATERAL KNEES Chief Complaint: BL knee Accompanied by: Self Is patient in pain?: Yes Pain scale (1-10): 11 Allergies pseudoephedrine [From Sudafed] Allergy (Intermediate, Verified 08/25/23 15:03) Rashacetaminophen [From Vicodin] Adverse Reaction (Verified 08/25/23 15:03) Otherhydrocodone [From Vicodin] Adverse Reaction (Verified 08/25/23 15:03) Other Medications amlodipine 2.5 mg tablet 2.5 mg PO DAILY 01/24/19 [History Confirmed 08/25/23] lisinopril 20 mg tablet 10 mg PO DAILY 01/24/19 [History Confirmed 08/25/23] simvastatin 20 mg tablet 20 mg PO DAILY 01/24/19 [History Confirmed 08/25/23] zolpidem 10 mg tablet 10 mg PO QHS PRN Insomnia 01/24/19 [History Confirmed 08/25/23] calcium carbonate 500 mg PO DAILY@0800 01/25/19 [History Confirmed 08/25/23] cholecalciferol (vitamin D3) 50 mcg (2,000 unit) capsule 2,000 unit PO DAILY 01/25/19 [History Confirmed 08/25/23] cyanocobalamin (vitamin B-12) 500 mcg tablet 500 mcg PO DAILY 01/25/19 [History Confirmed 08/25/23] citalopram 20 mg tablet 20 mg PO 12/16/22 [History Confirmed 08/25/23] miscellaneous medical supply 1 ea miscellaneous .1 YEAR #1 ea 12/16/22 [Rx Confirmed 01/15/23] ferrous sulfate 325 mg (65 mg iron) tablet 325 mg PO DAILY 08/25/23 [History Confirmed 08/25/23] folic acid 1 mg tablet 1 mg PO DAILY 08/25/23 [History Confirmed 08/25/23] tizanidine 4 mg tablet 4 mg PO PRN 08/25/23 [History Confirmed 08/25/23] PFSH Medical History Anemia CKD (chronic kidney disease) H/O fracture of arm H/O malignant neoplasm of breast High cholesterol HTN (hypertension) Osteoporosis Surgical History History of cholecystectomy Social History household members: children Smoking Status: Never smoker HPI BILATERAL KNEES Details: This documentation accurately reflects the service provided and the decisions made by me, Dr. Mauro Farrar, DO 08/25/23 0825. Part of today?s visit was documented by Renetta BOSS, acting as scribe. AMOR PARISI is a 77 year old F here today for Bilateral knee pain left is worse with more consistent pain. Patient has has gel injection in the past and she states they didn't work. Patient states her knee's have bothered her for the last 2 months and she is to the point she can barely walk and she is having to slide her feet along and hold on to things. Patient is using ice and heat sometimes and she is using CBD cream as well. Patient is using a cane to walk. Patient can't do stairs anymore and she lives in a two-story and her bedroom is upstairs. Patient is having muscle spams in her legs and horrible cramping at times. Patient states her right knee caps are cracking and popping and feels like it is popping out at times. Ortho Exam General General: Yes no acute distress Neurologic: Yes alert and Yes oriented x3 Psychologic: Yes reasonable and appropriate Right Knee Skin/Wound: No erythema, No ecchymosis and No swelling Homans Sign: No Knee ROM: Yes ROM-Extension -20 to 0 (-5) and Yes ROM-Flexion 0-140 Examination: Yes Med jt line tenderness, Yes Lat jt line tenderness, Yes TTP inf pole patella, Yes Crepitus, Yes Pain with flexion, Yes Pain with extention and Yes Gottlieb's Stability: NML: Anterior Drawer, NML: Posterior Drawer, NML: Valgus 0, NML: Valgus 30, NML: Varus 0 and NML: Varus 30 Patella Translation: 1 Patella Grind: Yes Left Knee Skin/Wound: No ecchymosis, No erythema and No swelling Homans Sign: No Knee ROM: Yes ROM-Extension -20 to 0 and Yes ROM-Flexion 0-140 Examination: Yes med jt line tenderness, Yes Lat jt line tenderness, Yes TTP inf pole patella, Yes Crepitus and Yes Pain with flexion Stability: NML: Anterior Drawer, NML: Posterior Drawer, NML: Valgus 0, NML: Valgus 30, NML: Varus 0 and NML: Varus 30 Patella Translation: 1 Patella Grind: Yes Left Hip internal rotation @90 degree flexion: 0 degrees external rotation @90 degree extension: 5 degrees HIP: tender to touch head: Normocephalic Atraumatic Chest: symmetrical rise, non-labored breathing, no audible wheeze Abdomen: no guarding, non-rigid Supplemental Info 12/16/2022 x-ray lumbar spine: There is multilevel lumbar degenerative disc disease, degenerative scoliosis August 19, 2022 x-ray left hip on disc from [facility]: Severe hip arthrosis 06/24/2022 x-ray bilateral knee on disc [facility]: Left knee advanced patellofemoral arthrosis mild spurring throughout the knee right knee advanced lateral compartment arthrosis with spurring throughout the knee. Coding Level of Care Code Off vis,new,level 4 Diagnoses Primary osteoarthritis of left knee M17.12 Osteoarthritis type: primary Primary osteoarthritis of right knee M17.11 Osteoarthritis type: primary Trochanteric bursitis, left hip M70.62 Primary osteoarthritis of left hip M16.12 Osteoarthritis type: primary Assessment and Plan Assessment and Plan (1) Degenerative joint disease of knee, left: Status: Acute Qualifiers: Osteoarthritis type: primary Qualified Code(s): M17.12 - Unilateral primary osteoarthritis, left knee (2) Right knee DJD: Status: Acute Qualifiers: Osteoarthritis type: primary Qualified Code(s): M17.11 - Unilateral primary osteoarthritis, right knee (3) Trochanteric bursitis, left hip: Status: Acute (4) Degenerative joint disease of left hip: Status: Acute Qualifiers: Osteoarthritis type: primary Qualified Code(s): M16.12 - Unilateral primary osteoarthritis, left hip Orders: Orders Knee 4 or More Views Today M17.12 - Unilateral primary osteoarthritis, left knee Ortho Injections Today M17.11 - Unilateral primary osteoarthritis, right knee Knee 4 or More Views Today M17.11 - Unilateral primary osteoarthritis, right knee Medications: New Depo-Medrol (methylprednisolone acetate) 40 mg intra-articular ONCE 1 mL 0RF NS M17.11 - Unilateral primary osteoarthritis, right knee Plan X-rays were reviewed. There is no obvious fracture, dislocation, or lucency noted. Patient does have b/l knee arthritis right worse then left. Her lateral hip pain is from the Trochanteric bursa, although she does have hip arthrosis on outside images from the past. Her treatment options for the knee are do nothing, steroid injections, gel- injections, physical therapy, tka. Patient wishes to proceed with an injection in the left hip bursae and would like to proceed with a bilateral knee TKA. I thoroughly explained to her there is increased risk of doing bilateral knee replacements at the same time, including increased risk of infection anesthesia blood clots and metabolic demand on the body as she does have a history of kidney disease. She understands this and does wish to proceed Risks, benefits and alternatives of surgery reviewed including but not limited to bleeding, infection, nerve, artery and/or tissue damage, fracture, VTE, mechanical feel of the knee, continued pain, stiffness and expected post- operative course. We did discuss iovera procedure and we will proceed with bilateral, we will need to obtain a medical clearance to proceed with 1 or both knee replacements at the same time. She will need CT scans bilateral knees. I would like to send her for prehabilitation physical therapy. If we do proceed with bilateral total knee arthroplasty she will need to be an admission and will likely need rehabilitation as she does have a second floor for her bedroom Tentative surgery date September 23, 2023. Clinical Quality Measures High Blood Pressure Screening/Follow Up High Blood Pressure follow-up Instructions: Recommended Blood Pressure Follow-Up Interventions: *Normal BP: No follow-up required for SBP < 120 mmHg and DBP < 80 mmHg: *Elevated BP: Patients with SBP of 120-129 mmHg and DBP < 80 mmHg: *Referral to Alternate/Primary Care Health Tax Manager OR * Follow-up with rescreen in 2 to 6 months AND recommend nonpharmacologic interventions * First Hypertensive BP Reading: Patients with one elevated reading of SBP >=130 mmHg OR DBP >= 80 mmHg: *Referral to Alternate/Primary Care Health Professional OR *Follow-up with rescreen in >1 day and < 4 weeks AND recommend nonpharmacologic interventions *Second Hypertensive BP Reading: *Second Hypertensive BP Reading:Patients with second elevated reading of SBP of 130-139 mmHg or DBP of 80-89 mmHg (and not SBP >=140 or DBP >=90): * Referral to Alternate/Primary Care Health Tax Manager OR *Nonpharmacological Intervention AND reassessment in 2-6 months AND an order for a laboratory test or ECG for hypertension *Second Hypertensive BP Reading: SBP >=140 or DBP >=90 *Referral to Alternate/Primary Care Healthcare Professional OR *Nonpharmacological Intervention AND BP lowering medication AND reassessment within 4 weeks AND an order for a laboratory test or ECG for hypertension BP Second Hypertensive Readings: For both questions related to the second hypertensive readings, orders for lab/E CG need to be placed in addition to responding to the non-pharmacological and follow up questions. 08/25/23 1634 <Electronically signed by Mauro Farrar DO> Date Mauro Childersigner Signature: Date (if applicable) I have examined the patient and the H&P has been reviewed. There are no clinical changes since date of exam.
--- NOTE | 2023-09-23 10:15 | KNEE_PTH ---
PATIENT: AMOR PARISI) LOC: [facility]3 U#:[id number] AGE/SX: 77/F [facility]: [facility] RE09/23/[address]: Dr. Mauro Farrar DO : 1945 BED: 1 DIS: 09/25/2023 SPEC #: [id number] RECD: 09/23/23 16:24 STATUS: ALEXANDRA HAMIDA #: [id number] ANASTASIA: 09/23/23 10:[address]: Mauro Farrar DEPT: SURGICAL PATHOLOGY RECD BY: Latanya Wren ENTERED: 09/24/23 08:34 SP TYPE: TOTAL KNEE OTHR DR: MD Dr. Fredy Newby MD Tissues: A - Knee, NOS B - Knee, NOS Procedures: Decalcification bone/plaque Surgery Specimen Level IV HEADER OPERATION: ERAS bilateral total knee replacement robotic arm assist PRE-OP DIAGNOSIS: Degenerative joint disease of knee, left, Degenerative joint disease of knee, right TISSUE SUBMITTED: A- Left knee, B- Right knee MICROSCOPIC DIAGNOSIS A. Bone and tissue of left knee, total knee resection: Consistent with severe degenerative joint disease. B. Bone and tissue of right knee, total knee resection: Consistent with severe degenerative joint disease. Mild synovial hyperplasia. AM:mr 09/30/23 MICROSCOPIC DESCRIPTION Slides are reviewed. GROSS DESCRIPTION A. Received is one container designated bone and soft tissue left knee. The specimen consists of multiple fragments of hernandez-yellow bone measuring in aggregate 14.0 x 11.0 x 2.0 cm. Also in the specimen container are multiple fragments of yellow-white soft tissue measuring in aggregate 6.0 x 2.0 x 1.0 cm. A number of bony fragments contain articular surfaces consistent with tibial plateau and femoral condyle and displaying prominent osteophyte formation, eburnation and bone erosion. Retirement Consultant sections are submitted in two cassettes as follows: 1 - soft tissue, 2 - bone after decalcification. B. Received is one container designated bone and soft tissue right knee. The specimen consists of multiple fragments of hernandez-yellow bone measuring in aggregate 15.0 x 11.0 x 1.5 cm. Also in the specimen container are multiple fragments of yellow-white soft tissue measuring in aggregate 1.0 x 1.0 x 0.2 cm. A number of bony fragments contain articular surfaces consistent with tibial plateau and femoral condyle and displaying prominent osteophyte formation, eburnation and bone erosion. Also present free in the container is a black plastic disc measuring 3.0cm in diameter and 1.7cm in thickness. Retirement Consultant sections are submitted in two cassettes as follows: 1 - soft tissue, 2 - bone after decalcification. Boni 09/24/2023 TC: 5 CPT: 76572i0,62435u4
[2023-09-23] MEDS: Cefazolin 2 GM in 0.9% Normal Saline (100mL Bag) 100 ML IV ×2 (10:42→18:13)
[2023-09-23] MEDS: TXA 1000mg in NS100 100ml (IVPB at Incision) 660 MG IV (11:00)
[2023-09-23] MEDS: dexAMETHasone 10 MG/ML Vial IV (11:40)
[2023-09-23] MEDS: dexAMETHasone 4 MG/ML Vial ×2 (12:10→14:19)
[2023-09-23] MEDS: 0.9% Normal Saline (Pres. free 10 ML Vial ×2 (12:10→14:19)
[2023-09-23] MEDS: Bupivacaine 0.5% PF 10 ML VIAL ×2 (12:10→14:19)
[2023-09-23] MEDS: Epinephrine (1 mg/ml) 1 MG/ML VIAL ×2 (12:10→14:19)
[2023-09-23] MEDS: TXA 1000mg in NS100 100ml (IVPB at Closure) 660 MG IV (12:52)
[2023-09-23] MEDS: Lactated Ringers 1,000 ML 125 ML IV (14:17)
--- NOTE | 2023-09-23 15:15 | RAD_ITS ---
STUDY: X-RAY - LEFT KNEE REASON FOR EXAM: Female, 77 years old. Postoperative evaluation after total knee arthroplasty. TECHNIQUE: 2 view(s) of the knee. COMPARISON: August 25, 2023 FINDINGS: There is a 3 component total knee arthroplasty in anatomic position. There are expected post-operative findings. There are no complications. No other significant abnormality is identified. RAD/Knee 1 or 2 Views IMPRESSION: Total knee arthroplasty in anatomic alignment without complications. Electronically Signed: Stefan Rojas MD at 15:37 EDT ,
--- NOTE | 2023-09-23 15:15 | RAD_ITS ---
STUDY: X-RAY - RIGHT KNEE REASON FOR EXAM: Female, 77 years old. Postoperative evaluation after total knee arthroplasty. TECHNIQUE: 2 view(s) of the knee. COMPARISON: August 25, 2023 FINDINGS: There is a 3 component total knee arthroplasty in anatomic position. There are expected post-operative findings. There are no complications. No other significant abnormality is identified. RAD/Knee 1 or 2 Views IMPRESSION: Total knee arthroplasty in anatomic alignment without complications. Electronically Signed: Stefan Rojas MD at 15:37 EDT ,
--- NOTE | 2023-09-23 15:15 | PCM.OP.BLANK ---
Operative Report Date of Procedure: 09/23/23 Preoperative diagnosis: Bilateral knee DJD Postoperative diagnosis: Same Procedure: Bilateral total knee arthroplasty CT guided Robotic Assisted Implant: All cemented left knee size 2 femur size 3 tibial baseplate with a 11 mm poly 29 asymmetric patella right knee size 2 femur size 3 tibial baseplate with a 9 mm polyethylene and a 32 asymmetric patella Anesthesia: General with bilateral postoperative adductor canal blocks Complications: None Condition: Stable to PACU Estimated blood loss: 175 cc Findings: Left knee had a preoperative recurvatum deformity right knee had a preoperative flexion contracture and an more significant valgus deformity, Computer Programming Manager Lamonte Phan. My physician judicial assistant was a vital part of this case. He was important in appropriate retraction during the case, and protection of soft tissues during procedure. His intimate knowledge of the case and my steps aided in safe and expedient completion of the procedure as well as appropriate position of the extremity during the case. He was also vital in assisting with closure under my direct supervision. Indication for procedure: This is a 77-year-old female with long standing bilateral degenerative joint disease of the knee who has failed conservative treatment and wished to proceed with elective total knee arthroplasties. Risk benefits and alternatives were reviewed including; risk of bleeding, infection, nerve artery and tissue damage, continued pain, postoperative stiffness, venous thromboembolism, need for postoperative rehabilitation, mechanical feel to the knee, and expected postoperative course. The pre- operative CT and templating was performed with component sizing. The increased risk of anesthesia blood clot infection and DVT pain were all reviewed with the patient for undergoing a bilateral procedure as opposed to performing 1 at a time Procedure: The patient was met in the preoperative holding area. The operative extremity was identified by both patient and physician and was marked. Patient was met by anesthesia. An adductor canal block was placed by anesthesia postoperatively the patient was brought back to the operating room on a wheeled cart and transferred to the operating table in the supine position. Anesthesia was started. A well-padded tourniquet was placed on the operative extremity. The patient was prepped and draped in the usual sterile fashion. A timeout was called to ensure the proper patient procedure and extremity were being contemplated. An esmarch was used to exsanguinate the extremity. The tourniquet was inflated. A 10 blade scalpel was used to make a midline incision down through the skin and subcutaneous tissue. Skin retractors placed. Bovie and Aquamantis were used to perform meticulous hemostasis. full-thickness flaps were elevated medial and lateral along the joint capsule. A deep blade scalpel was used to perform a medial parapatellar arthrotomy. The knee was brought to full extension. A bovie was used to release the soft tissues off the most proximal aspect of the medial tibial plateau, a three-quarter inch curved osteotome was also used in this process. The infrapatellar fat pad was excised. The suprapatellar fat pad was excised partially anteriorolateraly and portion the anterioromedial pad was elevated from the femur. At this point our intra-articular femoral array was placed at a 45 degree angle proximal and posterior to the medial epicondyle. femoral checkpoint was placed at this time. Our tibial array was placed partially intraart incisional with 1 pin within the wound and a stab incision made for the second pin a 15 blade scalpel and pins were placed and attached to the tibial array , tibial checkpoint was placed in the proximal tibial metaphysis. Tourniquet was let down. At this point registration garza were taken throughout the knee . Once the knee was registered we then tensioned the medial and lateral ligaments in extension and 90 degrees of flexion. We then used these numbers to adjust our components within parameters to balance the knee in both flexion and extension once this was done on our monitor we then proceeded with using the robotic arm to make our tibial plateau cut, anterior and posterior chamfer and distal femur cuts. we removed the cut fragments with the use of a bovie and Heike, we did use a lamina ice cream freezer assistant to insure we visualized and removed all posterior osteophytes and at this time also used the Aquamantis on the posterior joint capsule. we then trialed and achieved the desired plan with a well-balanced knee. we used the green probe to darron the corresponding tibial rotation based on our CT template. Lug holes were drilled in the femur the tibia preparation was completed with the appropriate sized base plate pinned based on previous rotation darron. An appropriate sized fin punch was used on the tibia and the patella was prepared by first using a caliper to ensure sufficient bone stock and a patellar reamer to remove the desired amount of bone. lug holes drilled for an asymmetric poly. We then brought the knee through range of motion with excellent patellar tracking. We thoroughly irrigated the knee. Trial components were removed a posterior capsular injection was preformed with our standard cocktail. In addition the aqua Mantis was also used to aid in hemostasis. Components were cemented into place with standard technique bone surfaces were all dried prior to. Following the cementing of the components the knee was held in full extension while Betadine rinse was allowed to sit for 5 minutes and thoroughly irrigated out Aricept rinse was then used followed by several more liters of irrigation after it was allowed to sit. The joint capsule was closed with #1 Ethibond [id number] in the upper part of the arthrotomy and #1 Vicryl in the lower part of the arthrotomy. , Followed by 2-0 Vicryl in the subcutaneous tissues with luisito in the skin. Arrays and checkpoints were removed prior to closure all counts were correct stab incisions were closed with a staple standard dressing in the form of Mepilex AG for the main incision and a small Mepilex over the pin holes. Thigh-high BENJAMIN hose applied over top of dressing. All of the dressings were taken down a new set up was uncovered and the procedure was essentially repeated on the right side. Patient tolerated the procedure well and was directed to PACU in stable condition . There were no intraoperative complications.
--- NOTE | 2023-09-23 16:54 | CON.PCM.HO_ITS ---
Assessment & Plan Assessment/Plan (1) Knee pain, right: QUALIFIERS: Chronicity: chronic Qualified Code(s): M25.561 - Pain in right knee; G89.29 - Other chronic pain (2) Left knee pain: QUALIFIERS: Chronicity: chronic Qualified Code(s): M25.562 - Pain in left knee; G89.29 - Other chronic pain PLAN: Plan #Bilateral total knee arthroplasty * Today's postop day 0. Pain is fairly well-controlled. * Management of pain as per Primary team orthopedic surgery. * incentive spirometry * PT/OT on board * fall precautions * #Hypoxia * Patient on 4 L of oxygen. Does not usually wear oxygen. Will try to wean off of oxygen. May be a sequelae of anesthesia. * Breathing treatments with bronchodilators. Titrate oxygen to maintain saturation above 90%. * encourage use of incentive spirometry * # Hypertension: On amlodipine and lisinopril #Hyperlipidemia: On statin #Depression: On citalopram DVT prophylaxis: As per primary team. Patient started on Eliquis. Thank you for the courtesy of the consult. Hospitalist service will continue to follow with you. # HPI Consult Data Date of Consult: 09/23/23 HPI Narrative Reason for Consultation: medical management HPI Narrative: AMOR PARISI, is a 77 F with a PMH as outlined who was admitted to the service of orthopedic surgery on 09/23/2023 for bilateral total knee arthroplasty. Hospitalist service was consulted for medical management. Patient was seen after surgery. Her was by her bedside. Today's postop day 0. She was lethargic though was able to respond to questions. Pain was fairly well-controlled when she did not move. Review of systems otherwise negative. She has remained hemodynamically stable. [facility] Medical History Anemia Anemia Arthritis Back pain Cancer CKD (chronic kidney disease) Difficulty swallowing Facial neuralgia Gastric reflux H/O fracture of arm H/O malignant neoplasm of breast High cholesterol History of diverticulitis History of hiatal hernia History of pain when walking History of steroid therapy History of stress test HTN (hypertension) Incontinence Non-smoker Osteoporosis Post-menopausal Shortness of breath on exertion Syncope Wears glasses Home Medications ?Medication ?Instructions ?Recorded ?Last Taken ?Type amlodipine 2.5 mg tablet 2.5 mg PO DAILY BP 01/24/19 09/23/23 History lisinopril 20 mg tablet 20 mg PO DAILY BP 01/24/19 09/23/23 History simvastatin 20 mg tablet 20 mg PO DAILY CHOLESTEROL 01/24/19 09/22/23 History zolpidem 10 mg tablet 10 mg PO QHS PRN Insomnia 01/24/19 09/22/23 History citalopram 20 mg tablet 20 mg PO DAILY DEPRESSION 12/16/22 09/21/23 History miscellaneous medical supply 1 ea miscellaneous .1 YEAR PRN #1 12/16/22 Unknown Rx ea ferrous sulfate 325 mg (65 mg 325 mg PO QODAY SUPPLEMENT 08/25/23 09/21/23 History iron) tablet tizanidine 4 mg tablet 4 mg PO PRN PRN muscle pain 08/25/23 09/20/23 History Allergy/AdvReac Type Severity Reaction Status Date / Time pseudoephedrine (From Allergy Intermediate Rash Verified 09/12/23 08:52 Sudafed) hydrocodone (From Vicodin) AdvReac Other Verified 09/23/23 08:15 Surgical History History of cholecystectomy Hx of breast lump removal Social History household members: children Smoking Status: Never smoker ROS Constitutional Constitutional: Denies change in weight, chills, fatigue, fever(s), malaise or weakness Eyes Eyes: Denies change in vision ENT HEENT: Denies dysphagia or headache(s) Cardiovascular Cardiovascular: Denies chest pain, dyspnea on exertion, edema, lightheadedness, orthopnea, palpitations, paroxysmal nocturnal dyspnea, rapid heart rate or syncope Respiratory/Chest Respiratory/Chest: Denies cough, dyspnea, productive cough, shortness of breath at rest or shortness of breath with exertion Gastrointestinal Gastrointestinal: Denies abdominal pain, constipation, diarrhea, nausea or vomiting Genitourinary Genitourinary: Denies burning urination Musculoskeletal Musculoskeletal: Reports joint pain; Denies arthralgias, back pain, joint stiffness, joint swelling, myalgias or neck pain Neurologic Neurologic: Denies confusion, dizziness, focal weakness or headache(s) Psychiatric Psychiatric: Denies anxiety Physical Exam Const alert and no apparent distress Orientation / Consciousness: lethargic HEENT normocephalic, head/scalp atraumatic, hearing grossly normal bilaterally and oropharynx normal Mouth: oral and palatal mucosa normal Eyes PERRL and EOMs intact bilaterally Neck no lymphadenopathy and supple Resp Resp Narrative: mildly diminished breath sounds bilaterally, no wheezes or crackles. on 4L of oxygen by nasal canula Cardio regular rate, regular rhythm, S1 normal heart sound, S2 normal heart sound and no murmurs GI normal to inspection, nondistended, normoactive bowel sounds, soft to palpation, non-tender and non-distended Extremity Extremity Narrative: both knees wrapped in bandage. Neuro oriented x3 and CN's II-XII intact bilaterally Sensorium / Orientation: awake Psych affect normal Lab / Micro Data Labs: Laboratory Results - last 24 hr 09/23/23 08:27: POC Glucose 92 Imaging Radiology Impression Knee X-Ray 09/23/23 15:15 IMPRESSION: Total knee arthroplasty in anatomic alignment without complications. Electronically Signed: Stefan Rojas MD at 15:37 EDT Reading Location ID and State: [facility] / [place] , Service support , Knee X-Ray 09/23/23 15:15 IMPRESSION: Total knee arthroplasty in anatomic alignment without complications. Electronically Signed: Stefan Rojas MD at 15:37 EDT , Charges/Coding Visit Charges Inpatient E&M: 61475 Subs Hosp L2
[2023-09-23] MEDS: 0.9% Normal Saline (1000mL) 1,000 ML 125 ML IV (18:12)
[2023-09-23] MEDS: oxyCODONE 5 MG Tablet PO (18:12)
[2023-09-23] MEDS: Ipratropium/Albuterol Sulfate 3 ML AMPUL.NEB INHALATION (19:00)
[2023-09-23] MEDS: Zolpidem Tartrate 5 MG Tablet PO (21:43)
[2023-09-23] MEDS: Senna/Docusate Sodium 1 Tablet 2 TABLET PO (21:44)
[2023-09-23] MEDS: Atorvastatin Calcium 10 MG Tablet PO (21:44)
[2023-09-24] VITALS (9 sets, daily range): BP systolic 116–157; BP diastolic 60–78; PULSE 98–120; RESP 16–20; TEMP 36.4–37.1; O2SAT 86–98
[2023-09-24] MEDS: 0.9% Normal Saline (1000mL) 1,000 ML 125 ML IV (02:00)
[2023-09-24] MEDS: Cefazolin 2 GM in 0.9% Normal Saline (100mL Bag) 100 ML IV ×2 (02:00→10:02)
[2023-09-24] MEDS: oxyCODONE 5 MG Tablet PO ×2 (06:09→11:33)
[2023-09-24] MEDS: Acetaminophen 500 MG Tablet 1000 MG PO ×3 (06:09→20:39)
[2023-09-24] MEDS: APIXABAN 2.5 MG TABLET (WCH) PO ×2 (06:10→20:42)
[2023-09-24] MEDS: Ipratropium/Albuterol Sulfate 3 ML AMPUL.NEB INHALATION ×4 (07:07→19:09)
[2023-09-24 07:23] LABS: Hematocrit 30.7 % (37-47); Hemoglobin 9.9 g/dL (12.0-15.0); Mean Corp Hgb Conc 32.2 g/dL (32-36); Mean Corpuscular Hgb 32.4 pg (27.0-32.0); Mean Corpuscular Volume 100.3 fL (81-99); Mean Platelet Vol. 8.6 fl (6.2-12.0); Platelet Count 318 K/mm3 (150-450); RBC Distribution Width SD 47.8 fl (35.1-43.9); Red Blood Count 3.06 M/mm3 (4.2-5.4); White Blood Count 14.4 K/mm3 (4.4-11.0)
[2023-09-24 07:54] LABS: Anion Gap 7 (5-15); BUN 16 mg/dL (7-18); Calcium,Total 8.6 mg/dL (8.5-10.1); Chloride 108 mmol/L (98-107); Creatinine, Serum 1.23 mg/dL (0.55-1.02); EST Glomerular Filtration Rate 45 mL/min (>60); Est Glom Filt Rate - Afr Amer 54 mL/min (>60); Estimated Creatinine Clearance 36.91 ml/min; Glucose 157 mg/dL (74-106); Potassium 4.7 mmol/L (3.5-5.1); Sodium Level 137 mmol/L (136-145)
[2023-09-24] MEDS: amLODIPine 2.5 MG Tablet PO (10:03)
[2023-09-24] MEDS: Senna/Docusate Sodium 1 Tablet 2 TABLET PO ×2 (10:03→20:40)
[2023-09-24] MEDS: Citalopram 20 MG Tablet PO (10:03)
[2023-09-24] MEDS: Lisinopril 20 MG Tablet PO (10:03)
--- NOTE | 2023-09-24 10:22 | PCM.PN.HOSP ---
Subjective Subjective Doing well, no issues overnight. Coming down on her oxygen slowly. This is likely atelectasis Objective Data Objective Data Vital Signs: Vital Signs Temp Pulse Resp BP Pulse Ox O2 Del Method O2 Flow Rate 98.0 F 100 18 133/76 H 98 Nasal Cannula 4 09/24/23 05:00 09/24/23 07:09 09/24/23 07:09 09/24/23 05:00 09/24/23 07:09 09/24/23 07:09 09/24/23 09:48 Oxygen Flow Rate (L/min) 4 Oxygen Delivery Method Nasal Cannula Weight: 174 lb 2.643 oz Body Mass Index (BMI) 30.8 Intake & Output: Intake and Output for Last 24 Hours 09/23/23 09/24/23 09/25/23 03:59 03:59 03:59 Intake Total 3402.42 / 3402.42 Balance 3402.42 / 3402.42 Lab / Micro Data 09/24/23 07:04 09/24/23 07:04 Labs: Laboratory Results - last 24 hr 09/24/23 07:04: WBC 14.4 H, RBC 3.06 L, Hgb 9.9 L, Hct 30.7 L, MCV 100.3 H, MCH 32.4 H, MCHC 32.2, RDW Std Deviation 47.8 H, RDW Coeff of Maura 13.0, Plt Count 318, MPV 8.6, Sodium 137, Potassium 4.7, Chloride 108 H, Carbon Dioxide 22.0, Anion Gap 7, BUN 16, Creatinine 1.23 H, Estim Creat Clear Calc 36.91, Est GFR (MDRD) Af Amer 54 L, Est GFR (MDRD) Non-Af 45 L, BUN/Creatinine Ratio 13.0, Glucose 157 H, Calcium 8.6 Radiography Diagnostic Testing: Radiology Impression Knee X-Ray 09/23/23 15:15 IMPRESSION: Total knee arthroplasty in anatomic alignment without complications. Electronically Signed: Stefan Rojas MD at 15:37 EDT , Knee X-Ray 09/23/23 15:15 IMPRESSION: Total knee arthroplasty in anatomic alignment without complications. Electronically Signed: Stefan Rojas MD at 15:37 EDT Reading Location ID and State: [facility] / [place] , Service support , Physical Exam Narrative General: Alert, Oriented x3, Cooperative, No apparent distress HEENT: Atraumatic, PERRLA, EOMI, Normocephalic Oral: Moist Mucosa Neck: Supple, No JVD Lungs: Diminished, Normal air movement, No rhonchi, No wheeze, No rales, bibasilar crackles Cardiovascular: Regular rate, Regular Rhythm, Normal S1, Normal S2, No murmurs Abdomen: Soft, Non Tender, Non-Distended, No Hepato-splenomegaly Extremities: No edema, Capillary Refill Less than 3 Seconds Skin: No rashes, No breakdown Musculoskeletal: No Tenderness to Palpation of Joints or Extremities Neurological: No focal neurological deficits, Motor Exam 5/5 strength throughout, Sensory exam intact to light touch and pain Psych/Mental Status: Normal Affect, Appropriate Assessment & Plan Assessment/Plan (1) Knee pain, right: QUALIFIERS: Chronicity: chronic Qualified Code(s): M25.561 - Pain in right knee; G89.29 - Other chronic pain (2) Left knee pain: QUALIFIERS: Chronicity: chronic Qualified Code(s): M25.562 - Pain in left knee; G89.29 - Other chronic pain PLAN: Plan 1. Bilateral total knee arthroplasty on 09/23/2023 with postoperative hypoxia ? Hypoxia is likely secondary to atelectasis, continue with incentive spirometry and Pep ? PT/OT ? Pain management per primary ? Discharge planning to SNF 2. Essential HTN/HLD ? Blood pressures are stable ? Can resume her home blood pressure medications ? We will monitor make adjustments as necessary ? Continue with statin 3. Anxiety/depression ? Stable ? Continue with her home medications 4. Iron deficiency anemia ? Stable ? Continue with iron supplementation DVT: Eliquis per primary Charges/Coding Visit Charges Inpatient E&M: 11113 Subs Hosp L2
--- NOTE | 2023-09-24 12:45 | CASEMGMT ---
Discharge Planning A list of? SNF providers including quality and resource use data and consistent with the patient's preferred geographic region, medical needs, and insurance network was created in [employer] Guide.? This list was provided to the SW. Tali Antonio Discharge Planning Asst.
--- NOTE | 2023-09-24 13:00 | PN.ORTHO_ITS ---
Subjective Subjective Overall doing okay. Pain controlled no fevers chills nausea vomiting shortness of breath or chest pain Objective Data Objective Data Vital Signs: Vital Signs Temp Pulse Resp BP Pulse Ox O2 Del Method O2 Flow Rate 97.6 F L 120 H 18 147/78 H 86 Room Air 4 09/24/23 09:11 09/24/23 09:11 09/24/23 09:11 09/24/23 09:11 09/24/23 09:11 09/24/23 09:11 09/24/23 09:48 Oxygen Flow Rate (L/min) 4 Oxygen Delivery Method Room Air Weight: 174 lb 2.643 oz Body Mass Index (BMI) 30.8 Intake & Output: Intake and Output for Last 24 Hours 09/22/23 09/23/23 09/24/23 23:59 23:59 23:59 Intake Total 2317.42 / 2317.42 1195 / 1195 Balance 2317.42 / 2317.42 1195 / 1195 Lab / Micro Data 09/24/23 07:04 09/24/23 07:04 Labs: Laboratory Results - last 24 hr 09/24/23 07:04: WBC 14.4 H, RBC 3.06 L, Hgb 9.9 L, Hct 30.7 L, MCV 100.3 H, MCH 32.4 H, MCHC 32.2, RDW Std Deviation 47.8 H, RDW Coeff of Maura 13.0, Plt Count 318, MPV 8.6, Sodium 137, Potassium 4.7, Chloride 108 H, Carbon Dioxide 22.0, Anion Gap 7, BUN 16, Creatinine 1.23 H, Estim Creat Clear Calc 36.91, Est GFR (MDRD) Af Amer 54 L, Est GFR (MDRD) Non-Af 45 L, BUN/Creatinine Ratio 13.0, G lucose 157 H, Calcium 8.6 Radiography Diagnostic Testing: Radiology Impression Knee X-Ray 09/23/23 15:15 IMPRESSION: Total knee arthroplasty in anatomic alignment without complications. Electronically Signed: Stefan Rojas MD at 15:37 EDT Reading Location ID and State: [address] [place] [address] , Service support , Knee X-Ray 09/23/23 15:15 IMPRESSION: Total knee arthroplasty in anatomic alignment without complications. Electronically Signed: Stefan Rojas MD at 15:37 EDT , Physical Exam Const alert, oriented x3 and no apparent distress General Appearance: cooperative Extremity Extremity Narrative: Bilateral lower extremities dressing clean dry intact compartments soft neurovascular intact Assessment & Plan Assessment/Plan (1) S/P total knee arthroplasty: QUALIFIERS: Laterality: bilateral Qualified Code(s): Z96.653 - Presence of artificial knee joint, bilateral PLAN: Plan Postop day #1 bilateral total knee arthroplasty PT OT weightbearing as tolerated DVT prophylaxis SCDs BENJAMIN hose Eliquis 2.5 mg twice daily Pain control oxycodone and Tylenol Patient requesting to go to [facility] rehab case management on the case. Patient's only complaint is of congestion and wheezing I will send a note to the nursing to asked the hospitalist to evaluate
--- NOTE | 2023-09-24 13:35 | CASEMGMT ---
VANESSA IZAGUIRRE Assessment Face to Face with patient for initial transition planning/care coordination assessment. VANESSA IZAGUIRRE introduced self and role at [facility], pt voices understanding. Pt is A&Ox4 and is resting comfortably in bed and is calm. Care providers, pharmacy, and demographics verified. Admitting dx: BL TKR PCP: Vincent Specialists: Messi Farrar Preferred [facility]acy: [facility] Insurance: AARP MCR ADV Prescription Benefit: Yes LNOK: Arian Magana (son) Living Arrangements: Pt lives with her 49 y/o son in a 2 story home with a stair lift and 3 steps to enter with a handrail ADLs/IADLs: son helps Transportation: Self, Son DME: Cane, Rollator, shower GB, stair lift HHC/SNF: denies history Pt?s goal: SNF for further rehab to return to PLOF Plan: PT is recommending skilled placement. Pt states that she is agreeable to SNF placement and would prefer to stay here at the hospital and go to the TCU. Per SW, referral has been made to the TCU already. SW to follow. Bernardino Aguirre RN, CM
--- NOTE | 2023-09-24 14:06 | CASEMGMT ---
Social Work SW received referral that pt will require short term SNF placement prior to return home. SW met with pt and introduced self and role of SW. SW discussed discharge plan with pt who agrees SNF will be needed prior to return home.?A list of SNF providers including quality and resource use data and consistent with the patient?s preferred geographic region, medical needs, and insurance network were provided from the [employer]Port Guide. Pt preferred provider is [facility]. Referral made to TCU. SW will await determination of acceptance. Plan: TCU, pending acceptance and precert CHANTEL Arenas
[2023-09-24] MEDS: Atorvastatin Calcium 10 MG Tablet PO (20:39)
[2023-09-24] MEDS: Zolpidem Tartrate 5 MG Tablet PO (20:41)
[2023-09-25] MEDS: oxyCODONE 5 MG Tablet PO (01:56)
[2023-09-25 02:07] VITALS: BP 155/79; PULSE 110; RESP 18; TEMP 37.1; O2SAT 96
[2023-09-25] MEDS: Acetaminophen 500 MG Tablet 1000 MG PO ×2 (06:43→13:37)
[2023-09-25 07:25] LABS: Hematocrit 26.9 % (37-47); Hemoglobin 8.7 g/dL (12.0-15.0); Mean Corp Hgb Conc 32.3 g/dL (32-36); Mean Corpuscular Hgb 32.1 pg (27.0-32.0); Mean Corpuscular Volume 99.3 fL (81-99); Mean Platelet Vol. 8.7 fl (6.2-12.0); Platelet Count 317 K/mm3 (150-450); RBC Distribution Width SD 46.5 fl (35.1-43.9); Red Blood Count 2.71 M/mm3 (4.2-5.4); White Blood Count 8.9 K/mm3 (4.4-11.0)
[2023-09-25] MEDS: Ipratropium/Albuterol Sulfate 3 ML AMPUL.NEB INHALATION (07:36)
[2023-09-25 07:39] VITALS: PULSE 100; RESP 18; O2SAT 99
[2023-09-25 09:10] VITALS: BP 178/87; PULSE 109; RESP 18; TEMP 36.5; O2SAT 94
[2023-09-25] MEDS: Lisinopril 20 MG Tablet PO (09:12)
[2023-09-25] MEDS: Senna/Docusate Sodium 1 Tablet 2 TABLET PO (09:12)
[2023-09-25] MEDS: APIXABAN 2.5 MG TABLET (WCH) PO (09:12)
[2023-09-25] MEDS: amLODIPine 2.5 MG Tablet PO (09:12)
[2023-09-25] MEDS: Citalopram 20 MG Tablet PO (09:12)
--- NOTE | 2023-09-25 10:24 | PCM.PN.HOSP ---
Subjective Subjective Doing well, breathing much better after her fluids were discontinued yesterday and she become more ambulatory Objective Data Objective Data Vital Signs: Vital Signs Temp Pulse Resp BP Pulse Ox O2 Del Method O2 Flow Rate 97.7 F L 109 H 18 178/87 H 94 Room Air 1 09/25/23 09:10 09/25/23 09:10 09/25/23 09:10 09/25/23 09:10 09/25/23 09:10 09/25/23 09:10 09/25/23 07:39 Oxygen Flow Rate (L/min) 1 Oxygen Delivery Method Room Air Weight: 174 lb 2.643 oz Body Mass Index (BMI) 30.8 Intake & Output: Intake and Output for Last 24 Hours 09/24/23 09/25/23 09/26/23 03:59 03:59 03:59 Intake Total 3402.42 / 3402.42 2109 / 2109 Output Total 100 / 100 600 / 600 Balance 3402.42 / 3402.42 2009 -600 / -600 Lab / Micro Data 09/25/23 07:00 09/24/23 07:04 Labs: Laboratory Results - last 24 hr 09/25/23 07:00: WBC 8.9, RBC 2.71 L, Hgb 8.7 L, Hct 26.9 L, MCV 99.3 H, MCH 32.1 H, MCHC 32.3, RDW Std Deviation 46.5 H, RDW Coeff of Maura 13.0, Plt Count 317, MPV 8.7 Physical Exam Narrative General: Alert, Oriented x3, Cooperative, No apparent distress HEENT: Atraumatic, PERRLA, EOMI, Normocephalic Oral: Moist Mucosa Neck: Supple, No JVD Lungs: Diminished, Normal air movement, No rhonchi, No wheeze, No rales Cardiovascular: Regular rate, Regular Rhythm, Normal S1, Normal S2, No murmurs Abdomen: Soft, Non Tender, Non-Distended, No Hepato-splenomegaly Extremities: No edema, Capillary Refill Less than 3 Seconds Skin: No rashes, No breakdown Musculoskeletal: No Tenderness to Palpation of Joints or Extremities Neurological: No focal neurological deficits, Motor Exam 5/5 strength throughout, Sensory exam intact to light touch and pain Psych/Mental Status: Normal Affect, Appropriate Assessment & Plan Assessment/Plan (1) Knee pain, right: QUALIFIERS: Chronicity: chronic Qualified Code(s): M25.561 - Pain in right knee; G89.29 - Other chronic pain (2) Left knee pain: QUALIFIERS: Chronicity: chronic Qualified Code(s): M25.562 - Pain in left knee; G89.29 - Other chronic pain PLAN: Plan 1. Bilateral total knee arthroplasty on 09/23/2023 with postoperative hypoxia ? Hypoxia is likely secondary to atelectasis, continue with incentive spirometry and Pep, currently has resolved when her IV fluids were discontinued continue with ambulation ? PT/OT ? Pain management per primary ? Hemoglobin today is 8.7, will recheck this afternoon ? Discharge planning to SNF 2. Essential HTN/HLD ? Blood pressures are stable ? Can resume her home blood pressure medications ? We will monitor make adjustments as necessary ? Continue with statin 3. Anxiety/depression ? Stable ? Continue with her home medications 4. Iron deficiency anemia ? Stable ? Continue with iron supplementation DVT: Eliquis per primary Charges/Coding Visit Charges Inpatient E&M: 54299 Subs Hosp L2
[2023-09-25 10:31] VITALS: BP 125/62; PULSE 103; RESP 18; TEMP 36.4; O2SAT 92
--- NOTE | 2023-09-25 13:06 | PCM.PN.ORT ---
Subjective Subjective pt seen and examined. she had some confusion last night but is doing fine. now. she denies any fever chills nausea vomitting. Objective Data Objective Data Vital Signs: Vital Signs Temp Pulse Resp BP Pulse Ox O2 Del Method O2 Flow Rate 97.6 F L 103 H 18 125/62 H 92 Room Air 1 09/25/23 10:31 09/25/23 10:31 09/25/23 10:31 09/25/23 10:31 09/25/23 10:31 09/25/23 10:31 09/25/23 07:39 Oxygen Flow Rate (L/min) 1 Oxygen Delivery Method Room Air Weight: 174 lb 2.643 oz Body Mass Index (BMI) 30.8 Intake & Output: Intake and Output for Last 24 Hours 09/23/23 09/24/23 09/25/23 23:59 23:59 23:59 Intake Total 2317.42 / 2317.42 3195 / 3195 Output Total 100 / 100 600 / 600 Balance 2317.42 / 2317.42 3095 / 3095 -600 / -600 Lab / Micro Data 09/25/23 07:00 09/24/23 07:04 Labs: Laboratory Results - last 24 hr 09/25/23 07:00: WBC 8.9, RBC 2.71 L, Hgb 8.7 L, Hct 26.9 L, MCV 99.3 H, MCH 32.1 H, MCHC 32.3, RDW Std Deviation 46.5 H, RDW Coeff of Maura 13.0, Plt Count 317, MPV 8.7 Physical Exam Const alert, oriented x3 and no apparent distress Extremity Extremity Narrative: Bilateral lower extremities neurovascular intact compartments soft dressings are clean dry and intact Assessment & Plan Assessment/Plan (1) S/P total knee arthroplasty: QUALIFIERS: Laterality: bilateral Qualified Code(s): Z96.653 - Presence of artificial knee joint, bilateral PLAN: Plan Postop day #2 bilateral total knee arthroplasty PT OT weightbearing as tolerated DVT prophylaxis SCDs BENJAMIN hose Eliquis 2.5 mg twice daily Pain control oxycodone and Tylenol DC planning TCU awaiting afternoon labs possibly DC today versus tomorrow.
[2023-09-25 13:25] LABS: Hematocrit 27.4 % (37-47); Hemoglobin 8.8 g/dL (12.0-15.0)
--- NOTE | 2023-09-25 13:59 | DCINST_ITS ---
Discharge Instructions Diet Discharge Diet: No restrictions Dressing / Incision Call your doctor if you observe: Shortness of breath and Chest pain Additional Dressing/Incision Instructions:: Ice and elevate lower extremities 2 weeks while not ambulating. Ambulation is encouraged. Weight bearing as tolerated. Use assistive devise for stability. Encourage FULL knee extension and flexion 1 time EVERY time you get up and down and MULTIPLE times per day. No showering until 72 hours after surgery. Begin showering postop day #3. Remove the dressing prior to shower and gently wash with warm water and antibacterial soap then pat dry and place abdominal pad (or plain gauze) and BENJAMIN hose over top. This is to be done daily. Do not submerge for 3 weeks. If not showering daily after the initial 72 hours then you must clean incision and change dressing daily. Do not allow animals near the incision area. Keep clean. Follow anti-coagulation recommendations as prescribed. Do not take any NSAIDs while on blood thinner. Do not take any additional narcotic pain medication other than what was prescribed on your surgery day without discussing with physician. Narcotic medication can be addictive. Do not drink alcohol while taking narcotics. Supplement narcotic prescription with acetaminophen 1000 mg 4 times a day. Start physical therapy. If you are not currently scheduled for physical therapy or you are unsure of appointment time please call office MEG to arrange. Call Dr. Farrar with any concerns. Follow Up Care Please Follow Up With: Mauro Farrar DO When: 2 weeks Test Results: Test results from this visit will be discussed in further detail at your follow- up appointment, if applicable. Discharge Plan Admission Admit Date/Time: 09/23/23 07:34 Primary Reason for Your Visit: Bilateral total knee arthroplasty Attending Provider: Mauro Farrar Primary Care Provider: Lay Kaur Consulting Providers: Fredy Yu Discharge Orders/Prescriptions Prescriptions: New acetaminophen 500 mg tablet 1,000 mg PO Q6H PRN Qty: 100 0RF Eliquis 2.5 mg tablet 2.5 mg PO BID Qty: 40 0RF oxycodone 5 mg tablet 5 - 10 mg PO Q4H PRN (Reason: pain) 7 Days Qty: 60 0RF Continued citalopram 20 mg tablet 20 mg PO DAILY Patient Comments: Take 1 tablet by mouth once daily. miscellaneous medical supply Misc 1 ea miscellaneous .1 YEAR Qty: 1 0RF Rx Instructions: HAND[employer]AP PLACARD, 1 YEAR tizanidine 4 mg tablet 4 mg PO PRN PRN (Reason: muscle pain) Patient Comments: Take 1/2 -1 tablet by mouth every 8 hours as needed (muscle spasms). ferrous sulfate 325 mg (65 mg iron) tablet 325 mg PO QODAY lisinopril 20 MG tablet 20 mg PO DAILY Patient Comments: Take 1 tablet by mouth once daily. amlodipine 2.5 MG tablet 2.5 mg PO DAILY Patient Comments: Take 1 tablet by mouth once daily. simvastatin 20 MG tablet 20 mg PO DAILY Patient Comments: Take 1 tablet by mouth daily at bedtime. zolpidem 10 MG tablet 10 mg PO QHS PRN (Reason: Insomnia) Patient Comments: TAKE 1 TABLET BY MOUTH AT BEDTIME NEEDED for insomnia. Referrals / Follow Up: Lay Kaur MD [Primary Care Provider] -
[2023-09-25 14:01] VITALS: O2SAT 93
--- NOTE | 2023-09-25 14:05 | PCM.DC.SUM ---
Providers Date of Admission: 09/23/23 Primary Care Physician: Dr. Lay Kaur MD Consultations 09/23/23 15:04 Consult: Hospitalist Routine Consulting Provider: Dodie Martines Reason for Consult: medical co-management EMERGENT Consult: No MD Notified: Yes Date Notified: 09/23/23 Time Notified: 16:40 Method of Notification: Text Reason For Visit: ERAS Bilateral Total Knee Replaceme Diagnosis Discharge Diagnosis (1) S/P total knee arthroplasty: Status: Acute Code(s): Z96.659 - Presence of unspecified artificial knee joint Qualifiers: Laterality: bilateral Qualified Code(s): Z96.653 - Presence of artificial knee joint, bilateral Plan Postop day #2 bilateral total knee arthroplasty PT OT weightbearing as tolerated DVT prophylaxis SCDs BENJAMIN hose Eliquis 2.5 mg twice daily Pain control oxycodone and Tylenol DC planning TCU awaiting afternoon labs possibly DC today versus tomorrow. Medications at Discharge Home Medications amlodipine 2.5 mg tablet 2.5 mg PO DAILY BP 01/24/19 lisinopril 20 mg tablet 20 mg PO DAILY BP 01/24/19 simvastatin 20 mg tablet 20 mg PO DAILY CHOLESTEROL 01/24/19 zolpidem 10 mg tablet 10 mg PO QHS PRN Insomnia 01/24/19 citalopram 20 mg tablet 20 mg PO DAILY DEPRESSION 12/16/22 miscellaneous medical supply 1 ea miscellaneous .1 YEAR PRN #1 ea 12/16/22 ferrous sulfate 325 mg (65 mg iron) tablet 325 mg PO QODAY SUPPLEMENT 08/25/23 tizanidine 4 mg tablet 4 mg PO PRN PRN muscle pain 08/25/23 acetaminophen 500 mg tablet 1,000 mg (2 x 500 mg) PO Q6H PRN #100 tabs 09/25/23 apixaban 2.5 mg tablet (Eliquis) 2.5 mg PO BID #40 tabs 09/25/23 oxycodone 5 mg tablet 5 - 10 mg (1 - 2 x 5 mg) PO Q4H PRN pain 7 days #60 tabs 09/25/23 Hospital Course Operations total knee replacement Summary of Care Provided Hospital Course: Who has 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 Patient underwent the aformentioned procedure on the admission date without any intraoperative complications. Patient did receive pre-and postoperative antibiotics which were discontinued within 23 hours postoperatively. Patient did receive general anesthesia. pain was controlled with IV and transition to p.o. pain medication Patient will be discharged TCU with oxycodone and will continue Tylenol as well. Patient had minimal intraoperative blood loss and 2gm tranexamic acid was administered there was no need for postoperative blood transfusion Patients vital signs remained stable. Patient was started on both mechanical and chemical DVT per prophylaxis postoperatively in the form of SCDs BENJAMIN hose and [Eliquis 2.5 mg twice daily for which she will continue for 3 additional weeks post postoperatively]. thigh high benjamin hose placed over top of the meplix silver dressing. This should be removed 72 hr post operatively and showering begun daily at that time with warm water and antibacterial soap. not to submerge for 3 weeks. To change dressing daily after first dressing change. Patient will follow-up in the office in 2 weeks. No intrahospital complications. Weight / BMI Weight Weight: 174 lb 2.643 oz Body Mass Index (BMI) 30.8 ABG / Lab / Microbiology Data 09/25/23 13:12 09/24/23 07:04 Laboratory: Laboratory Results - last 24 hr 09/25/23 07:00: WBC 8.9, RBC 2.71 L, Hgb 8.7 L, Hct 26.9 L, MCV 99.3 H, MCH 32.1 H, MCHC 32.3, RDW Std Deviation 46.5 H, RDW Coeff of Maura 13.0, Plt Count 317, MPV 8.7 09/25/23 13:12: Hgb 8.8 L, Hct 27.4 L D/C Instructions Discharge Diet: No restrictions Call your doctor if you observe: Shortness of breath and Chest pain Additional Dressing/Incision Instructions: Ice and elevate lower extremities 2 weeks while not ambulating. Ambulation is encouraged. Weight bearing as tolerated. Use assistive devise for stability. Encourage FULL knee extension and flexion 1 time EVERY time you get up and down and MULTIPLE times per day. No showering until 72 hours after surgery. Begin showering postop day #3. Remove the dressing prior to shower and gently wash with warm water and antibacterial soap then pat dry and place abdominal pad (or plain gauze) and BENJAMIN hose over top. This is to be done daily. Do not submerge for 3 weeks. If not showering daily after the initial 72 hours then you must clean incision and change dressing daily. Do not allow animals near the incision area. Keep clean. Follow anti-coagulation recommendations as prescribed. Do not take any NSAIDs while on blood thinner. Do not take any additional narcotic pain medication other than what was prescribed on your surgery day without discussing with physician. Narcotic medication can be addictive. Do not drink alcohol while taking narcotics. Supplement narcotic prescription with acetaminophen 1000 mg 4 times a day. Start physical therapy. If you are not currently scheduled for physical therapy or you are unsure of appointment time please call office MEG to arrange. Call Dr. Farrar with any concerns. Please Follow Up With: Mauro Farrar DO When: 2 weeks Meaningful Use Info Meaningful Use Meaningful Use Diagnoses (Choose all that apply): None applicable Ischemic Stroke Statin Dosing Therapy Reference: STATIN DOSE THERAPY REFERENCE: * Patients > 75 years receive moderate or high dose statin therapy. * Patients 75 years or YOUNGER should receive HIGH intensity statin dose unless contraindicated. You will be required to document reason for non-treatment if statin daily dose does not meet guidelines. HIGH DOSE STATIN THERAPY DAILY Atorvastatin > than or = to 40 mg Rosuvastatin > than or = to 20 mg Amlodipine + Atorvastatin > than or = to 2.5/40 mg Ezetimibe + Simvastatin 10/80 mg Simvastatin 80mg Discharge Plan Admission Admit Date/Time: 09/23/23 07:34 Primary Reason for Your Visit: Bilateral total knee arthroplasty Attending Provider: Mauro Farrar Primary Care Provider: Lay Kaur Consulting Providers: Fredy Yu Discharge Orders/Prescriptions Prescriptions: New acetaminophen 500 mg tablet 1,000 mg PO Q6H PRN Qty: 100 0RF Eliquis 2.5 mg tablet 2.5 mg PO BID Qty: 40 0RF oxycodone 5 mg tablet 5 - 10 mg PO Q4H PRN (Reason: pain) 7 Days Qty: 60 0RF Continued citalopram 20 mg tablet 20 mg PO DAILY Patient Comments: Take 1 tablet by mouth once daily. miscellaneous medical supply Mis 1 ea miscellaneous .1 YEAR Qty: 1 0RF Rx Instructions: HANDICAP PLACARD, 1 YEAR tizanidine 4 mg tablet 4 mg PO PRN PRN (Reason: muscle pain) Patient Comments: Take 1/2 -1 tablet by mouth every 8 hours as needed (muscle spasms). ferrous sulfate 325 mg (65 mg iron) tablet 325 mg PO QODAY lisinopril 20 MG tablet 20 mg PO DAILY Patient Comments: Take 1 tablet by mouth once daily. amlodipine 2.5 MG tablet 2.5 mg PO DAILY Patient Comments: Take 1 tablet by mouth once daily. simvastatin 20 MG tablet 20 mg PO DAILY Patient Comments: Take 1 tablet by mouth daily at bedtime. zolpidem 10 MG tablet 10 mg PO QHS PRN (Reason: Insomnia) Patient Comments: TAKE 1 TABLET BY MOUTH AT BEDTIME NEEDED for insomnia. Referrals / Follow Up: Lay Kaur MD [Primary Care Provider] -
--- NOTE | 2023-09-25 14:09 | PCM.TXEXTCAR ---
Diet Diet Order/Speech Therapy: 09/24/23 06:59 Diet: Regular - General Is pt able to select menu?: Yes Wound(s) RT KNEE: Wound Type: Surgical Incision LT KNEE: Wound Type: Surgical Incision Therapies Weight Bearing: Full weight bearing Problem/Diagnosis (1) S/P total knee arthroplasty: Status: Acute Code(s): Z96.659 - Presence of unspecified artificial knee joint Plan Postop day #2 bilateral total knee arthroplasty PT OT weightbearing as tolerated DVT prophylaxis SCDs BENJAMIN hose Eliquis 2.5 mg twice daily Pain control oxycodone and Tylenol DC planning TCU awaiting afternoon labs possibly DC today versus tomorrow. dressings to be changed daily begining post op day #5 incisions cleaned daily with antibacterial soap and warm water and replaced with dry dressing Allergies/Procedures Done in Hospital Allergies pseudoephedrine (From Sudafed) Allergy (Intermediate, Verified 09/12/23 08:52) Rash hydrocodone (From Vicodin) Adverse Reaction (Verified 09/23/23 08:15) Other Crawling out of my skin, couldn't keep me in bed Type of Care/Length of Stay Estimated LOS: Convalescent Care Less Than 30 days Type of Care Needed: Skilled Rehab Potential: Good Prognosis: Good Additional Orders/Day of Discharge Day of Discharge: 09/25/23 Follow Up Care Please Follow Up With: Mauro Farrar DO When: 2 weeks post op, if still in TCU i will see her there if notified Discharge Plan Admission Admit Date/Time: 09/23/23 07:34 Primary Reason for Your Visit: Bilateral total knee arthroplasty Attending Provider: Mauro Farrar Primary Care Provider: Lay Kaur Consulting Providers: Fredy Yu Discharge Orders/Prescriptions Prescriptions: New acetaminophen 500 mg tablet 1,000 mg PO Q6H PRN Qty: 100 0RF Eliquis 2.5 mg tablet 2.5 mg PO BID Qty: 40 0RF oxycodone 5 mg tablet 5 - 10 mg PO Q4H PRN (Reason: pain) 7 Days Qty: 60 0RF Continued citalopram 20 mg tablet 20 mg PO DAILY Patient Comments: Take 1 tablet by mouth once daily. miscellaneous medical [place] [facility] [place] miscellaneous .1 YEAR Qty: 1 0RF Rx Instructions: HANDICAP KOMAL, 1 YEAR tizanidine 4 mg tablet 4 mg PO PRN PRN (Reason: muscle pain) Patient Comments: Take 1/2 -1 tablet by mouth every 8 hours as needed (muscle spasms). ferrous sulfate 325 mg (65 mg iron) tablet 325 mg PO QODAY lisinopril 20 MG tablet 20 mg PO DAILY Patient Comments: Take 1 tablet by mouth once daily. amlodipine 2.5 MG tablet 2.5 mg PO DAILY Patient Comments: Take 1 tablet by mouth once daily. simvastatin 20 MG tablet 20 mg PO DAILY Patient Comments: Take 1 tablet by mouth daily at bedtime. zolpidem 10 MG tablet 10 mg PO QHS PRN (Reason: Insomnia) Patient Comments: TAKE 1 TABLET BY MOUTH AT BEDTIME NEEDED for insomnia. Referrals / Follow Up: Lay Kaur MD [Primary Care Provider] - Disposition Discharge Orders: Discharge Patient (Routine); Ordered 09/25/23 Ordered By: Dr. Mauro Farrar (1) S/P total knee arthroplasty Qualifiers: Laterality: bilateral Qualified Code(s): Z96.653 - Presence of artificial knee joint, bilateral
[2023-09-25 14:34] VITALS: BP 126/52; PULSE 110; RESP 18; TEMP 36.5; O2SAT 95
--- NOTE | 2023-09-25 16:05 | CASEMGMT ---
Social Work TCU is able to accept pt and precert has been obtained. Physician notified and pt is ready for discharge today. Discharge orders faxed to TCU and Neena in TCU notified that pt will be coming today. Pt updated and agreeable to dc today. Pt son notified of dc plan to TCU. Nursing updated. Disposition: TCU, skilled level of care CHANTEL Arenas
--- NOTE | 2023-09-25 17:27 | NURSING ---
Pt sent to [facility]
== END 2023-09-25 17:34 | disposition skilled nursing facility (03) | DRG 462 ==
LOC: ACINP 07:35 → MS3 16:37
PROVIDERS: Family Medicine; Admitting Provider Orthopaedic Surgery; PCP Internal Medicine; Referring Provider Orthopaedic Surgery; Visit Provider Orthopaedic Surgery
PROC: 0SRD0J9 Replacement of Left Knee Joint with Synthetic Substitute, Cemented, Open Approach (ICD-10-PCS; principal; 2023-09-23 09:45)
DX: M17.0 Bilateral primary osteoarthritis of knee (principal); J98.11 Atelectasis; D50.9 Iron deficiency anemia, unspecified; I12.9 Hypertensive chronic kidney disease with stage 1 through stage 4 chronic kidney disease, or unspecified chronic kidney disease; N18.9 Chronic kidney disease, unspecified; F32.A Depression, unspecified; M16.12 Unilateral primary osteoarthritis, left hip; M70.62 Trochanteric bursitis, left hip; E78.00 Pure hypercholesterolemia, unspecified; F41.9 Anxiety disorder, unspecified; R09.02 Hypoxemia; G89.29 Other chronic pain; M81.0 Age-related osteoporosis without current pathological fracture; Z79.899 Other long term (current) drug therapy; Z96.653 Presence of artificial knee joint, bilateral
CPT/HCPCS: 36415; 73560; 80048; 82962; 85014; 85018; 85027; 88305; 88311; 93005; 94640; 94668; 97162; 97166; 97530; 97535; C1776; J7030; J7120; J2405; J3475; J3490

== ENCOUNTER 2023-09-25 18:34 | Inpatient (IN) | payer MEDICARE, SELFPAY ==
[2023-09-25 18:32] VITALS: BP 150/69; PULSE 112; RESP 18; TEMP 36.5; O2SAT 93; BMI 31.9
[2023-09-25] MEDS: Acetaminophen 500 MG Tablet 1000 MG PO (20:42)
--- NOTE | 2023-09-25 20:53 | NURSING ---
PT offered prune juice for bowel protocol, declined at time, request in AM.
[2023-09-25] MEDS: APIXABAN 2.5 MG TABLET (WCH) PO (21:48)
[2023-09-25] MEDS: MELATONIN 3 MG TABLET PO (21:49)
[2023-09-25] MEDS: Atorvastatin Calcium 10 MG Tablet 5 MG PO (21:49)
[2023-09-25] MEDS: oxyCODONE 5 MG Tablet PO (21:52)
[2023-09-25] MEDS: 0.9% Saline Lock 10 ML Syringe IV (22:23)
--- NOTE | 2023-09-26 05:33 | NURSING ---
Self transferred despite education this shift, states If I have to go to the bathroom, I will just go, verbalizes understanding regarding call light education, encouraged to call for staff to promote safety and prevent fall. Patient states I will try. Patient educated on importance of fall prevention. Written communication left for Dr. Owens
[2023-09-26 06:04] LABS: Absolute Lymphocyte Count 1.44 X10^3/uL (0.83-4.51); Absolute Neutrophil Count 4.1 X10^3/uL (2.0-7.7); Basophil# 0.02 X10^3/uL; Basophil% 0.3 % (0-1); Eosinophil# 0.21 X10^3/uL; Eosinophils% 3.1 % (0-5); Hematocrit 24.5 % (37-47); Hemoglobin 7.9 g/dL (12.0-15.0); Lymphocyte # 1.44 X10^3/ul (0.83-4.51); Lymphocyte % 21.5 % (19-41); Mean Corp Hgb Conc 32.2 g/dL (32-36); Mean Corpuscular Hgb 32.2 pg (27.0-32.0); Mean Platelet Vol. 8.7 fl (6.2-12.0); Monocyte# 0.92 X10^3/uL; Monocyte% 13.7 % (0-10); NRBC Flagged by Analyzer 0 % (0-5); Neutrophil % 61.3 % (47-70); Platelet Count 296 K/mm3 (150-450); RBC Distribution Width CV 13.2 % (11.6-14.6); RBC Distribution Width SD 47.7 fl (35.1-43.9); Red Blood Count 2.45 M/mm3 (4.2-5.4); White Blood Count 6.7 K/mm3 (4.4-11.0)
--- NOTE | 2023-09-26 06:08 | NURSING ---
PT accepted glass of prune juice with butter.
[2023-09-26 06:22] LABS: Anion Gap 4 (5-15); BUN 25 mg/dL (7-18); BUN/Creat Ratio 28.9 RATIO (10-20); Calcium,Total 8.5 mg/dL (8.5-10.1); Chloride 111 mmol/L (98-107); Creatinine, Serum 0.86 mg/dL (0.55-1.02); EST Glomerular Filtration Rate 67 mL/min (>60); Est Glom Filt Rate - Afr Amer 81 mL/min (>60); Estimated Creatinine Clearance 53.72 ml/min; Glucose 102 mg/dL (74-106); Potassium 3.8 mmol/L (3.5-5.1); Sodium Level 141 mmol/L (136-145)
[2023-09-26] MEDS: Citalopram 20 MG Tablet PO (08:47)
[2023-09-26] MEDS: APIXABAN 2.5 MG TABLET (WCH) PO ×2 (08:47→20:35)
[2023-09-26] MEDS: amLODIPine 2.5 MG Tablet PO (08:47)
[2023-09-26] MEDS: Lisinopril 20 MG Tablet PO (08:48)
[2023-09-26] MEDS: Tuberculin,Purif.prot.deriv. 50 TU/ML Vial 0.1 ML ID (09:03)
[2023-09-26] MEDS: tiZANidine HCl 2 MG Tablet PO (09:14)
--- NOTE | 2023-09-26 09:43 | PCM.HP.STD ---
HPI - General General Date of Admission: 09/25/23 Date of Service: 09/26/23 Chief Complaint: Debility due to bilateral TKA HPI [place] PARISI, is a 77-year-old F with a past medical history of chronic renal failure, breast cancer, hyperlipidemia, hypertension, osteoporosis and osteoarthritis who was admitted to [facility] on 09/23/2023 for scheduled bilateral total knee arthroplasties by Dr. Farrar. Postoperatively she had hypoxemia related to prolonged effects of anesthesia and pain medication. On the morning of discharge from the hospital pulse ox on room air was 92%. Postoperatively hemoglobin was 9.9, down from 12.9 preoperatively. Hemoglobin dropped from 9.9-8.7 on 09/25/2023 and a recheck later in the day showed the hemoglobin to be stable at 8.8. Creatinine postoperatively was 1.23 which is within her baseline. She was transferred to the transitional care unit on 09/25/2023 for therapy to restore function/independence at or near her level prior to the surgery. Weight has increased from 174 pounds on the day of surgery to 180 pounds and 5 ounces yesterday. Blood pressure has ranged from 125/62 to 178/87 over the past 24 hours. Heart rate has ranged from 103-112. She is maintaining appropriate oxygen saturation on room air. All lab drawn this morning was personally reviewed. The white blood cell count is normal at 6.7. Hemoglobin is 7.9, down from 8.8 yesterday afternoon however this may be secondary to dilution as she has gained approximately 6 pounds in the past few days, likely due to fluid accumulation. Platelets are within normal limits. Sodium is 141 and the potassium is 3.8. BUN is 25 with a creatinine of 0.86 which is down from 1.26 on 09/11/2023. The GFR on 09/11/2023 was 44 which is consistent with stage III chronic renal failure. Lab in June 2020 showed a creatinine of 1.69 with a GFR of 31. Calcium is normal. Med list was reviewed. She is taking Eliquis 2.5 mg twice daily for DVT prophylaxis. She has oxycodone 5 mg every 6 hours as needed ordered for pain and Zanaflex 2 mg every 12 hours as needed muscle spasm. She took 1 dose of oxycodone at bedtime last night. She did not sleep well....tells me that she has been taking Ambien every night for many years. Has been getting up without assist and now has a alarm to remind her to call nursing if she needs to get up. Tells me that the pain medication is helpful when she gets it. She has a HH with GERD and is requesting a PPI....takes Nexium at home. [facility] Medical History (Updated 09/26/23 @ 12:[address] Lilian Owens, ) Degenerative joint disease of knee, left Degenerative joint disease of left hip Trochanteric bursitis, left hip Right knee DJD Chronic renal failure, stage 3 (moderate) Sjogren's syndrome Wears glasses Post-menopausal Cancer History of steroid therapy Arthritis Incontinence Anemia Back pain Facial neuralgia Syncope History of hiatal hernia Difficulty swallowing History of diverticulitis Gastric reflux Non-smoker Shortness of breath on exertion History of pain when walking History of stress test H/O fracture of arm Osteoporosis Anemia High cholesterol HTN (hypertension) Home Medications ?Medication ?Instructions ?Recorded ?Last Taken ?Type amlodipine 2.5 mg tablet 2.5 mg PO DAILY BP 01/24/19 09/25/23 09:15 History lisinopril 20 mg tablet 20 mg PO DAILY BP 01/24/19 09/25/23 09:15 History simvastatin 20 mg tablet 20 mg PO DAILY CHOLESTEROL 01/24/19 09/24/23 20:40 History zolpidem 10 mg tablet 10 mg PO QHS PRN Insomnia 01/24/19 09/24/23 20:40 History citalopram 20 mg tablet 20 mg PO DAILY DEPRESSION 12/16/22 09/25/23 09:15 History miscellaneous medical supply 1 ea miscellaneous .1 YEAR PRN #1 12/16/22 Unknown Rx ea ferrous sulfate 325 mg (65 mg 325 mg PO QODAY SUPPLEMENT 08/25/23 09/21/23 History iron) tablet tizanidine 4 mg tablet 4 mg PO PRN PRN muscle pain 08/25/23 09/20/23 History acetaminophen 500 mg tablet 1,000 mg (2 x 500 mg) PO Q6H PRN 09/25/23 Unknown Rx Pain 1-4 #100 tabs apixaban 2.5 mg tablet (Eliquis) 2.5 mg PO BID Blood Thinner #40 09/25/23 Unknown Rx tabs oxycodone 5 mg tablet 5 - 10 mg (1 - 2 x 5 mg) PO Q4H 09/25/23 Unknown Rx PRN pain 7 days #60 tabs Allergy/AdvReac Type Severity Reaction Status Date / Time pseudoephedrine (From Allergy Intermediate Rash Verified 09/12/23 08:52 Sudafed) hydrocodone (From Vicodin) AdvReac Other Verified 09/23/23 08:15 Surgical History (Updated 09/26/23 @ 12:[address] Lilian Owens DO) S/P total knee arthroplasty Hx of breast lump removal History of cholecystectomy Social History household members: children Smoking Status: Never smoker ROS Constitutional Constitutional: Reports difficulty sleeping and weakness; Denies anorexia, change in weight, chills, daytime sleepiness, fatigue, fever(s), frequent falls or night sweats Eyes Eyes: Denies blurry vision, change in vision, eye pain or loss of vision ENT HEENT: Reports sore throat; Denies abnormal hearing, dysphagia, headache(s), hearing loss or nasal congestion Cardiovascular Cardiovascular: Reports dyspnea on exertion and edema; Denies chest pain, lightheadedness, orthopnea, palpitations, paroxysmal nocturnal dyspnea or syncope Respiratory/Chest Respiratory/Chest: Denies cough, dyspnea, shortness of breath at rest, shortness of breath with exertion or wheezing Gastrointestinal Gastrointestinal: Reports constipation; Denies abdominal pain, diarrhea, dyspepsia, hematemesis, hematochezia, nausea, odynophagia or vomiting Genitourinary Genitourinary: Denies dysuria, hematuria, nocturia, urinary frequency, urinary hesitancy, urinary incontinence or urinary urgency Musculoskeletal Musculoskeletal: Reports joint pain and muscle cramps; Denies back pain, joint swelling, neck pain, radiating pain into limb or tremors Integumentary Integumentary: Denies alopecia, change in hair, jaundice or sores Neurologic Neurologic: Reports abnormal gait; Denies confusion, disequilibrium, dizziness, focal weakness, headache(s), memory loss, paresthesias, seizures or tremor(s) Psychiatric Psychiatric: Reports anxiety; Denies depression, homicidal ideation, suicidal ideation or visual hallucinations Endocrine Endocrinology: Denies change in body appearance, polydipsia or polyuria Hematologic/Lymphatic Hematologic/Lymphatic: Denies easy bleeding, easy bruising or lymphadenopathy Allergic/Immunologic Allergic/Immunologic: Denies rhinitis, eczemia or asthma Vital Signs Vital Signs Vital Signs: 09/25/23 18:32 09/25/23 18:32 Temperature 97.7 F L Temperature Source Temporal Pulse Rate 112 H Pulse Rhythm Regular Pulse Strength Normal (2+) Respiratory Rate 18 Respiratory Effort Normal Non-Labored Respiratory Depth Normal Respiratory Pattern Normal Blood Pressure 150/69 H Blood Pressure Mean 96 Blood Pressure Source Monitor Blood Pressure Position Semi-Fowlers Blood Pressure Location Right Arm Pulse Ox 93 93 Oxygen Delivery Method Room Air Room Air Weight Weight: 180 lb 5 oz Body Mass Index (BMI) 31.9 Physical Exam Const alert, oriented x3 and no apparent distress Constitutional Narrative: Lying flat in bed with no shortness of breath. General Appearance: cooperative, comfortable, well kempt and well developed HEENT head/scalp atraumatic and hearing grossly normal bilaterally HEENT Narrative: Dry mucous membranes, no evidence of thrush. Patient tells me she has Sjogren syndrome. She is mildly hoarse and complains of mild soreness in her throat. She is clearing her throat a lot. Likely secondary to irritation of the posterior phalanx from the LMA or ET tube. Eyes PERRL, EOMs intact bilaterally, conjunctivae normal and no scleral icterus Eyes Narrative: No conjunctival injection and no discharge from the eyes. General Eye: normal appearance of both eyes Neck supple General: trachea midline Chest Chest Narrative: Has had a mastectomy on the left. Chest: symmetrical chest wall rise Resp normal respiratory effort, normal air movement and no use of accessory muscles Resp Narrative: Clear to auscultation anterior and lateral. Effort and Inspection: able to speak in complete sentences Cardio regular rate, regular rhythm, S1 normal heart sound, S2 normal heart sound, no rub and no gallops Cardio Narrative: She has a soft systolic murmur at the second right intercostal space with radiation to the lower left sternal border-suspect secondary to flow murmur from acute blood loss anemia. GI normal to inspection, nondistended, normoactive bowel sounds, soft to palpation and non-tender GI Narrative: No guarding with palpation. no CVA tenderness Extremity Extremity Narrative: There is intact sensation in both feet and they are both warm to touch. There is some bruising, especially in the left knee. There is no erythema that extends beyond the dressing. The dressings are dry. She has edema at both ankles. Thigh-high teds are in place. Skin Rashes: no rashes Neuro oriented x3 and CN's II-XII intact bilaterally Psych mental status grossly normal, thought process normal, cooperative, affect normal and speech normal Appearance: grossly normal, appropriate and well kempt Attitude: calm Activity / Motor Behavior: appropriate eye contact Speech: normal speech Results Lab / Micro Data 09/26/23 05:02 09/26/23 05:02 Labs: Laboratory Results - last 24 hr 09/26/23 05:02: WBC 6.7, RBC 2.45 L, Hgb 7.9 L, Hct 24.5 L, MCV 100.0 H, MCH 32.2 H, MCHC 32.2, RDW Std Deviation 47.7 H, RDW Coeff of Maura 13.2, Plt Count 296, MPV 8.7, Immature Gran % (Auto) 0.100, Neut % (Auto) 61.3, Lymph % (Auto) 21.5, Morton % (Auto) 13.7 H, Eos % (Auto) 3.1, Baso % (Auto) 0.3, Absolute Neuts (auto) 4.1, Absolute Lymphs (auto) 1.44, Nucleated RBC % 0, Sodium 141, Potassium 3.8, Chloride 111 H, Carbon Dioxide 26.0, Anion Gap 4 L, BUN 25 H, Creatinine 0.86, Estim Creat Clear Calc 53.72, Est GFR (MDRD) Af Amer 81, Est GFR (MDRD) Non-Af 67, BUN/Creatinine Ratio 28.9 H, Glucose 102, Calcium 8.5 Assessment & Plan Assessment/Plan (1) Debility: (2) S/P total knee arthroplasty: QUALIFIERS: Laterality: bilateral Qualified Code(s): Z96.653 - Presence of artificial knee joint, bilateral (3) Other acute postprocedural pain: (4) Acute blood loss anemia: (5) Chronic renal failure, stage 3 (moderate): (6) Gastric reflux: (7) Sjogren's syndrome: PLAN: Plan PLAN PT for gait stability OT for ADL's Analgesics as needed Bowel protocol-Metamucil 1 packet twice daily added to the drug regimen for complaint of constipation Fall precautions Assess for Anxiety/Depression GI prophylaxis -Protonix 20 mg twice daily DVT prophylaxis with Eliquis 2.5 mg twice daily Follow up with Dr. Vincent harris and Dr. Farrar following DC from Rehab AM lab personally reviewed 1. Antipsychotic - NO 2. Antianxiety - She is on Celexa 3. Antidepressant - continue Celexa 4. Hypnotic - Has been taking Ambien for years for insomnia. Will decrease the dose to 5 mg at HS. We discussed that this medication is on the Beer's list of medications that may be inappropriate for elderly. JEMIMA when she also takes a muscle relaxer PRN and is now on Oxycodone. 5. Anticoagulant Continue Apixaban for DVT prophylaxis 6. Antibiotic NO 7. Diuretic NO 8. Opioid Oxycodone 5 mg Q6H PRN for pain > 3 9. Antiplatelet Not taking 10. Hypoglycemic agent -NO Patient is impulsive with poor safety awareness. She is also taking narcotics for pain control. Nursing placed an alarm on her to remind her to call someone to help her if she wants out of bed. I reinforced with her that she is not allowed to get up by herself. Charges/Coding Visit Charges Inpatient E&M: 95440 SNF Init L1
[2023-09-26] MEDS: Pantoprazole Sodium 20 MG Tablet PO ×2 (12:41→20:36)
[2023-09-26] MEDS: Acetaminophen 500 MG Tablet 1000 MG PO ×2 (13:36→20:36)
--- NOTE | 2023-09-26 15:20 | NURSING ---
Patient complain of reflux and reports hx of hiatal hernia. NO for Protonix. Also NO for Metamucil and Ambien today. To collect occult stool for low Hgb.
[2023-09-26 16:00] VITALS: BP 113/64; PULSE 92; RESP 14; TEMP 36.6; O2SAT 95
[2023-09-26] MEDS: Saliva Substitute 237 ML BOTTLE 15 ML MUCOUS MEM ×2 (17:40→20:36)
[2023-09-26] MEDS: Psyllium 1 PACKET PO (20:34)
[2023-09-26] MEDS: Atorvastatin Calcium 10 MG Tablet 5 MG PO (20:34)
[2023-09-26] MEDS: oxyCODONE 5 MG Tablet PO (20:40)
[2023-09-26] MEDS: Zolpidem Tartrate 5 MG Tablet PO (22:32)
[2023-09-27] MEDS: Acetaminophen 500 MG Tablet 1000 MG PO ×3 (05:38→22:06)
[2023-09-27] MEDS: Saliva Substitute 237 ML BOTTLE 15 ML MUCOUS MEM (05:38)
[2023-09-27 09:22] VITALS: BP 105/55; PULSE 95; RESP 16; TEMP 36.3; O2SAT 94
[2023-09-27] MEDS: APIXABAN 2.5 MG TABLET (WCH) PO ×2 (09:24→22:04)
[2023-09-27] MEDS: Psyllium 1 PACKET PO (09:24)
[2023-09-27] MEDS: amLODIPine 2.5 MG Tablet PO (09:24)
[2023-09-27] MEDS: Lisinopril 20 MG Tablet PO (09:24)
[2023-09-27] MEDS: Ferrous Sulfate 325 MG Tablet PO (09:24)
[2023-09-27] MEDS: Pantoprazole Sodium 20 MG Tablet PO ×2 (09:24→22:06)
[2023-09-27] MEDS: Citalopram 20 MG Tablet PO (09:25)
[2023-09-27] MEDS: tiZANidine HCl 2 MG Tablet PO (09:30)
[2023-09-27 14:28] LABS: Hematocrit 24.6 % (37-47); Hemoglobin 7.7 g/dL (12.0-15.0)
[2023-09-27] MEDS: Zolpidem Tartrate 5 MG Tablet PO (22:03)
[2023-09-27] MEDS: Atorvastatin Calcium 10 MG Tablet 5 MG PO (22:04)
[2023-09-28] MEDS: oxyCODONE 5 MG Tablet PO ×2 (01:53→17:13)
[2023-09-28 05:09] LABS: Mean Corpuscular Hgb 31.3 pg (27.0-32.0); Mean Corpuscular Volume 97.7 fL (81-99); Mean Platelet Vol. 8.9 fl (6.2-12.0); Platelet Count 358 K/mm3 (150-450); RBC Distribution Width CV 12.8 % (11.6-14.6); RBC Distribution Width SD 46.1 fl (35.1-43.9); Red Blood Count 2.56 M/mm3 (4.2-5.4); White Blood Count 6.7 K/mm3 (4.4-11.0)
[2023-09-28 05:21] LABS: Anion Gap 7 (5-15); BUN 20 mg/dL (7-18); BUN/Creat Ratio 23.7 RATIO (10-20); Calcium,Total 8.6 mg/dL (8.5-10.1); Chloride 108 mmol/L (98-107); Creatinine, Serum 0.84 mg/dL (0.55-1.02); EST Glomerular Filtration Rate 69 mL/min (>60); Est Glom Filt Rate - Afr Amer 83 mL/min (>60); Glucose 113 mg/dL (74-106); Potassium 3.4 mmol/L (3.5-5.1); Sodium Level 140 mmol/L (136-145)
[2023-09-28] MEDS: Acetaminophen 500 MG Tablet 1000 MG PO ×3 (05:28→20:35)
[2023-09-28] MEDS: Saliva Substitute 237 ML BOTTLE 15 ML MUCOUS MEM ×3 (05:29→20:32)
[2023-09-28] MEDS: Citalopram 20 MG Tablet PO (08:59)
[2023-09-28] MEDS: APIXABAN 2.5 MG TABLET (WCH) PO ×2 (08:59→20:32)
[2023-09-28] MEDS: amLODIPine 2.5 MG Tablet PO (09:01)
[2023-09-28] MEDS: Pantoprazole Sodium 20 MG Tablet PO ×2 (09:01→20:35)
[2023-09-28] MEDS: Lisinopril 20 MG Tablet PO (09:02)
[2023-09-28 09:07] VITALS: BP 131/55; PULSE 97
[2023-09-28] MEDS: tiZANidine HCl 2 MG Tablet PO (11:01)
[2023-09-28] MEDS: Potassium Chloride Oral Tablet 20 MEQ 40 MEQ PO (11:05)
[2023-09-28 16:00] VITALS: BP 131/67; PULSE 72; RESP 18; TEMP 37.2; O2SAT 95
--- NOTE | 2023-09-28 16:43 | NURSING ---
SURGICAL MEPILEX REMOVED FROM BOTH KNEES PER ORDERS. CLEAN AREAS,LT KNEE HAS 20 GABRIEL AND RT KNEE HAS 21 GABRIEL. SWELLING NON PITTING,NO S/S OF INFECTION, BRUISING. SMALL BLOODY DRAINAGE. ABD APPLIED TO BOTH KNEES. PT TOLERATED WELL.
[2023-09-28] MEDS: Atorvastatin Calcium 10 MG Tablet 5 MG PO (20:33)
[2023-09-28] MEDS: Psyllium 1 PACKET PO (20:34)
[2023-09-28] MEDS: Zolpidem Tartrate 5 MG Tablet PO (20:39)
[2023-09-29] MEDS: oxyCODONE 5 MG Tablet PO ×2 (03:45→10:42)
[2023-09-29] MEDS: Saliva Substitute 237 ML BOTTLE 15 ML MUCOUS MEM ×3 (05:36→21:09)
[2023-09-29] MEDS: Acetaminophen 500 MG Tablet 1000 MG PO ×3 (05:36→21:10)
[2023-09-29 10:35] VITALS: BP 128/65; PULSE 82; RESP 16; TEMP 36.7; O2SAT 94
[2023-09-29] MEDS: amLODIPine 2.5 MG Tablet PO (10:39)
[2023-09-29] MEDS: APIXABAN 2.5 MG TABLET (WCH) PO ×2 (10:39→21:11)
[2023-09-29] MEDS: Citalopram 20 MG Tablet PO (10:39)
[2023-09-29] MEDS: Ferrous Sulfate 325 MG Tablet PO (10:39)
[2023-09-29] MEDS: Pantoprazole Sodium 20 MG Tablet PO ×2 (10:40→21:10)
[2023-09-29] MEDS: Lisinopril 20 MG Tablet PO (10:40)
[2023-09-29] MEDS: tiZANidine HCl 2 MG Tablet PO (14:37)
[2023-09-29] MEDS: Atorvastatin Calcium 10 MG Tablet 5 MG PO (21:10)
[2023-09-29] MEDS: Zolpidem Tartrate 5 MG Tablet PO (21:12)
[2023-09-30] MEDS: oxyCODONE 5 MG Tablet PO ×2 (05:54→18:40)
[2023-09-30] MEDS: Saliva Substitute 237 ML BOTTLE 15 ML MUCOUS MEM ×3 (05:55→21:14)
[2023-09-30] MEDS: Acetaminophen 500 MG Tablet 1000 MG PO ×3 (05:55→21:17)
--- NOTE | 2023-09-30 07:27 | PCM.PN.DRR ---
TCU RX Drug Regimen Review Subjective/Objective Subjective/Objective: Subjective: TCU Admission. 77 YOF admitted to the hospital 09/22 for scheduled bilateral total knee arthroplasties by Dr. Farrar. Admitted to TCU with debility for strengthening and rehabilitation. Objective: Allergies pseudoephedrine (From Sudafed) Allergy (Intermediate, Verified 09/12/23 08:52) Rash hydrocodone (From Vicodin) Adverse Reaction (Verified 09/23/23 08:15) Other Crawling out of my skin, couldn't keep me in bed Current Medications Generic Name Dose Route Start Last Admin Trade Name Freq PRN Reason Stop Dose Admin Acetaminophen 1,000 mg 09/26/23 14:00 09/30/23 05:55 Acetaminophen 500 Mg Tablet PO 1,000 mg Q8 PATRIA Administration Amlodipine Besylate 2.5 mg 09/26/23 10:00 09/29/23 10:39 Amlodipine 2.5 Mg Tablet PO 2.5 mg DAILY PATRIA Administration Protocol Apixaban 2.5 mg 09/25/23 22:00 09/29/23 21:11 Apixaban 2.5 Mg Tablet (Wch) PO 2.5 mg BID PATRIA Administration Atorvastatin Calcium 5 mg 09/25/23 22:00 09/29/23 21:10 Atorvastatin Calcium 10 Mg Tablet PO 5 mg QHS PATRIA Administration Citalopram Hydrobromide 20 mg 09/26/23 10:00 09/29/23 10:39 Citalopram 20 Mg Tablet PO 20 mg DAILY PATRIA Administration Ferrous Sulfate 325 mg 09/27/23 08:00 09/29/23 10:39 Ferrous Sulfate 325 Mg Tablet PO 325 mg Q48@0800 PATRIA Administration Lisinopril 20 mg 09/26/23 10:00 09/29/23 10:40 Lisinopril 20 Mg Tablet PO 20 mg DAILY PATRIA Administration Protocol Oxycodone HCl 5 mg 09/25/23 18:46 09/30/23 05:54 Oxycodone 5 Mg Tablet PO 5 mg Q6H PRN PRN Administration pain Pantoprazole Sodium 20 mg 09/26/23 11:45 09/29/23 21:10 Pantoprazole Sodium 20 Mg Tablet PO 20 mg BID PATRIA Administration Psyllium Hydrophilic Mucilloid 1 packet 09/26/23 22:00 09/29/23 21:09 Psyllium 1 Packet PO Not Given BID PATRIA Saliva Substitute 15 ml 09/26/23 17:00 09/30/23 05:55 Saliva Substitute 237 Ml Bottle MUCOUS MEM 15 ml 4X/DAY PATRIA Administration Sodium Chloride 10 - 40 ml 09/25/23 21:58 09/25/23 22:23 0.9% Saline Lock 10 Ml Syringe IV 10 ml UD PRN Administration SALINE FLUSH Tizanidine HCl 2 mg 09/25/23 19:04 09/29/23 14:37 Tizanidine Hcl 2 Mg Tablet PO 2 mg Q12H PRN PRN Administration MUSCLE SPASM Tuberculin PPD 0.1 ml 10/03/23 10:00 Tuberculin,Purif.Prot.Deriv. 50 Tu/Ml Vial ID 10/03/23 10:01 X1 ONE Zolpidem Tartrate 5 mg 09/26/23 22:00 09/29/23 21:12 Zolpidem Tartrate 5 Mg Tablet PO 5 mg QHS PRN PRN Administration insomnia Problem List Acute blood loss anemia (Acute) Debility (Acute) Chronic renal failure, stage 3 (moderate) (Chronic) Gastric reflux (Acute) Sjogren's syndrome (Acute) Other acute postprocedural pain (Acute) S/P total knee arthroplasty (Acute) Vital Signs Temp Pulse Resp BP Pulse Ox O2 Del Method 98.0 F 82 16 128/65 H 94 Room Air 09/29/23 10:35 09/29/23 10:35 09/29/23 10:35 09/29/23 10:35 09/29/23 10:35 09/29/23 14:45 Oxygen Delivery Method Room Air Weight: 81.788 kg Body Mass Index (BMI) 31.9 Sodium 140 mmol/L (136-145) 09/28/23 04:00 Potassium 3.4 mmol/L (3.5-5.1) L 09/28/23 04:00 Chloride 108 mmol/L (98-107) H 09/28/23 04:00 Carbon Dioxide 25.0 mmol/L (21.0-32.0) 09/28/23 04:00 Anion Gap 7 (5-15) 09/28/23 04:00 BUN 20 mg/dL (7-18) H 09/28/23 04:00 Creatinine 0.84 mg/dL (0.55-1.02) 09/28/23 04:00 Est GFR (MDRD) Af Amer 83 mL/min (>60) 09/28/23 04:00 Est GFR (MDRD) Non-Af 69 mL/min (>60) 09/28/23 04:00 BUN/Creatinine Ratio 23.7 RATIO (10-20) H 09/28/23 04:00 Glucose 113 mg/dL (74-106) H 09/28/23 04:00 Assessment/Plan: 1. Pain: acetaminophen 1000mg PO Q8 and oxycodone 5mg PO Q6H PRN pain 1-10. Resident has had 7 doses of oxycodone for pain scores of 5-8 in the knee. Please continue to monitor for increased pain, PRN usage, constipation and respiratory depression. 2. Bowel: psyllium 1 packet BID. Please continue to monitor for constipation and diarrhea. Resident has refused 4/7 doses and has not had a documented bowel movement. 3. DVT prophylaxis (s/p bilateral TNK): apixaban 2.5mg PO BID. Per discharge summary, resident is supposed to be on for 3 weeks. Please consider adding the stop date. Thanks. Please continue to monitor for S/S of bleeding/DVT and hemoglobin (last 8g/dL). 4. Gastric reflux: pantoprazole 20mg PO BID. Please continue to monitor for S/S of reflux and diarrhea (BEERs medication). 5. Hypertension: lisinopril 20mg PO daily and amlodipine 2.5mg PO daily. Please continue to monitor BP (last 128/65), cough, potassium (last 3.4mmol/L, received 40mEq PO x1 this AM), renal function and swelling. 6. Hyperlipidemia: atorvastatin 5mg PO QHS. Please consider ordering a lipid panel as there is no panel in the chart. Thanks. Please continue to monitor for muscle pain. 7. Muscle spasms: tizanidine 2mg PO Q12H PRN muscle spams. Resident has had 4 doses. Please continue to monitor for PRN usage, muscle spasms, BP, dizziness and fatigue. 8. Anemia: ferrous sulfate 325mg PO Q48. Please consider ordering iron studies as there is no previous panel in the chart. Thanks. Please continue to monitor hemoglobin (last 8g/dL), dark stools, constipation. 9. Dry mouth: Biotene 15mL MM 4x/day. Please continue to monitor for dry mouth. 10. Hypokalemia (based on K of 3.4mmol/L): potassium chloride 40mEq PO x1. Please continue to monitor potassium. Assessment/Plan for indications treated with psychotropic medications: 1. Depression/anxiety (per H&P): citalopram 20mg PO daily. Please consider GDR by 03/2024 if clinically appropriate. Thanks. Please continue to monitor for falls/fractures (BEERs medication), suicidal ideation (black box warning) and sodium (last 140mmol/L). 2. Insomnia: zolpidem 5mg PO QHS PRN insomnia. Dose already reduced from home dose of 10mg. Resident has had 4 doses. Please continue to monitor for PRN usage, excessive drowsiness, complex sleep-related behaviors (such as eating while sleeping or making phone calls, black box warning), dementia/delirium (BEERs) and falls/fractures (BEERs). Medical chart and medication regimen reviewed. The following medication irregularities or issues were identified: 1. Apixaban 2.5mg PO BID. Per discharge summary, resident is supposed to be on for 3 weeks. Please consider adding the stop date. Thanks. 2. Atorvastatin 5mg PO QHS. Please consider ordering a lipid panel as there is no panel in the chart. Thanks. 3. Ferrous sulfate 325mg PO Q48. Please consider ordering iron studies as there is no previous panel in the chart. Thanks. 4. Citalopram 20mg PO daily. Please consider GDR by 03/2024 if clinically appropriate. Thanks. Date Date of Note:: 09/30/23
--- NOTE | 2023-09-30 08:32 | NURSING ---
Offered covid vaccine, VIS provided. Patient refuses at this time.
[2023-09-30 09:34] VITALS: BMI 32.2
[2023-09-30 09:48] VITALS: BP 116/52; PULSE 74; RESP 18; TEMP 36.4; O2SAT 94
[2023-09-30] MEDS: Citalopram 20 MG Tablet PO (09:50)
[2023-09-30] MEDS: Lisinopril 20 MG Tablet PO (09:50)
[2023-09-30] MEDS: Potassium Chloride Oral Tablet 20 MEQ 40 MEQ PO (09:50)
[2023-09-30] MEDS: Pantoprazole Sodium 20 MG Tablet PO ×2 (09:50→21:16)
[2023-09-30] MEDS: Psyllium 1 PACKET PO (09:52)
[2023-09-30] MEDS: amLODIPine 2.5 MG Tablet PO (09:52)
[2023-09-30] MEDS: APIXABAN 2.5 MG TABLET (WCH) PO ×2 (09:52→21:15)
[2023-09-30] MEDS: tiZANidine HCl 2 MG Tablet PO (12:20)
--- NOTE | 2023-09-30 14:00 | CASEMGMT ---
TCU admission note Social Work This social media content specialist met with patient to complete initial assessment. Sw introduced self and explained sw role. Verified patient's contacts and confirmed code status- full, patient requests no changes to be made to code status. Patient reports that she has completed advanced directives and has named her son as her Power of Life Skills Coordinator- Arian Magana. Patient states that she is not sure if she has provided copy to hospital yet. Educated to Medicare benefit and copay coverage. Patient states that her goal is to return to home where she currently resides with her son who helps her with household duties. Patient states that she would like to get connected to home health services. Sw will continue to follow throughout admission to provide support and assist with discharge planning. BIMS: 04/18 PANDA Shannon, CHANTEL
[2023-09-30] MEDS: Magnesium Citrate 300 ML PO (18:38)
[2023-09-30] MEDS: Zolpidem Tartrate 5 MG Tablet PO (21:13)
[2023-09-30] MEDS: Atorvastatin Calcium 10 MG Tablet 5 MG PO (21:15)
[2023-09-30] MEDS: Senna/Docusate Sodium 1 Tablet 2 TABLET PO (21:17)
[2023-09-30 22:00] VITALS: PULSE 78; O2SAT 94
[2023-10-01] MEDS: Acetaminophen 500 MG Tablet 1000 MG PO ×3 (05:20→21:21)
[2023-10-01] MEDS: Saliva Substitute 237 ML BOTTLE 15 ML MUCOUS MEM ×4 (05:20→21:18)
[2023-10-01 06:15] LABS: Anion Gap 5 (5-15); BUN 19 mg/dL (7-18); BUN/Creat Ratio 21.9 RATIO (10-20); Calcium,Total 8.8 mg/dL (8.5-10.1); Chloride 108 mmol/L (98-107); Creatinine, Serum 0.87 mg/dL (0.55-1.02); EST Glomerular Filtration Rate 67 mL/min (>60); Est Glom Filt Rate - Afr Amer 81 mL/min (>60); Estimated Creatinine Clearance 53.33 ml/min; Glucose 94 mg/dL (74-106); Potassium 4.3 mmol/L (3.5-5.1); Sodium Level 140 mmol/L (136-145)
--- NOTE | 2023-10-01 09:05 | CASEMGMT ---
Social Work IDT met with patient and sonArian at bedside to complete care plans. Discussed patient progress with therapy (PT/OT/ST), dietary, and nursing. Patient is progressing with therapy. Patient is ambulating 200ft with therapy. Patient is independent to transition out of bed. Patient requires assistance with lower extremity dressing. Patient informed SW that they bought a chair lift for home. Patient anticipates using walker up stairs and rollator on lower level. Therapy recommends walker on lower level. Patient working on strengthening knees and mobility on steps. Patient requires support for cognitive eval. Patient suspects changes in memory and cognition due to medications. Speech therapy will continue to follow. SW educated patient and son of [facility] Medicare insurance coverage and benefits; next review date 09/29 currently pending. Patient's goal is to return home with home health care services. Patient has no history of home health care in the past. SW to provide home health care list. SW will continue to follow to support discharge planning. DAJA Samayoa
[2023-10-01] MEDS: Ferrous Sulfate 325 MG Tablet PO (09:56)
[2023-10-01] MEDS: Citalopram 20 MG Tablet PO (09:57)
[2023-10-01] MEDS: APIXABAN 2.5 MG TABLET (WCH) PO ×2 (09:57→21:19)
[2023-10-01] MEDS: Senna/Docusate Sodium 1 Tablet 2 TABLET PO ×2 (09:58→21:20)
[2023-10-01] MEDS: Pantoprazole Sodium 20 MG Tablet PO ×2 (09:58→21:20)
[2023-10-01] MEDS: amLODIPine 2.5 MG Tablet PO (09:58)
[2023-10-01] MEDS: Lisinopril 20 MG Tablet PO (09:58)
[2023-10-01] MEDS: tiZANidine HCl 2 MG Tablet PO (10:01)
[2023-10-01 10:03] VITALS: BP 141/61; PULSE 74
[2023-10-01] MEDS: Menthol/Lanolin/Calamine/Znox 113 GM Tube 1 APPLIC TOPICAL ×2 (11:05→21:18)
--- NOTE | 2023-10-01 15:50 | CHAPLAIN ---
Type of Pastoral Visit _x__ Initial Visit ___ Follow-up Visit ___ On-call Visit ___ General Patient Visit ___ Spiritual Assessment ___ Family Conference ___ Bereavement ___ Rapid Response ___ Code Blue ___ Other (describe below) Pastoral Care Referral From _x__ Patient ___ Family ___ Nurse ___ Physician ___ Logistic Manager ___ Environmental Service Aide ___ Other (describe below) Sacrament/Intervention _x__ Active listening ___ Anointing ___ Holiness ___ Bereavement ___ Communion _x__ Katina exploration ___ _x__ Life review _x__ Prayer ___ Reconciliation ___ Sacrament of Sick ___ Supportive presence ___ Wedding ___ Other (describe below) Pastoral Comments patient is expressive of desire to have visit from head of digital advertising & integration; pt talks about her life and her work; 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
[2023-10-01 16:00] VITALS: BP 121/63; PULSE 77; RESP 22; TEMP 36.7; O2SAT 93
[2023-10-01] MEDS: oxyCODONE 5 MG Tablet PO (16:36)
[2023-10-01] MEDS: Atorvastatin Calcium 10 MG Tablet 5 MG PO (21:19)
[2023-10-01] MEDS: Zolpidem Tartrate 5 MG Tablet PO (21:23)
[2023-10-02] MEDS: oxyCODONE 5 MG Tablet PO ×2 (04:25→13:58)
[2023-10-02] MEDS: Acetaminophen 500 MG Tablet 1000 MG PO ×3 (05:20→20:43)
[2023-10-02] MEDS: Saliva Substitute 237 ML BOTTLE 15 ML MUCOUS MEM ×4 (05:20→20:39)
[2023-10-02 06:14] LABS: Hematocrit 26.7 % (37-47); Hemoglobin 8.2 g/dL (12.0-15.0)
[2023-10-02] MEDS: Senna/Docusate Sodium 1 Tablet 2 TABLET PO ×2 (10:21→20:43)
[2023-10-02] MEDS: APIXABAN 2.5 MG TABLET (WCH) PO ×2 (10:21→20:42)
[2023-10-02] MEDS: Citalopram 20 MG Tablet PO (10:21)
[2023-10-02] MEDS: amLODIPine 2.5 MG Tablet PO (10:21)
[2023-10-02] MEDS: Pantoprazole Sodium 20 MG Tablet PO ×2 (10:21→20:43)
[2023-10-02] MEDS: Lisinopril 20 MG Tablet PO (10:22)
[2023-10-02] MEDS: Menthol/Lanolin/Calamine/Znox 113 GM Tube 1 APPLIC TOPICAL ×2 (10:24→20:41)
[2023-10-02] MEDS: tiZANidine HCl 2 MG Tablet PO (10:24)
--- NOTE | 2023-10-02 10:54 | NURSING ---
Hogshead Cooper Note; MDS for 10/02/2023 Complete
[2023-10-02 15:07] VITALS: BP 121/66; PULSE 71; RESP 16; TEMP 36.6; O2SAT 94
--- NOTE | 2023-10-02 17:55 | CASEMGMT ---
Social Work SW met with patient at bedside to complete MDS. Patient BIM () and PhQ-2 (1) Patient informed SW that she felt a loss of interest in doing things due to being tired after therapy. Patient states that she does not have energy to focus on reading. SW discussed therapy recommendation for walker. Patient informed SW that she recently had insurance purchase a walker during recent hospitalization. Insurance will not cover for additional walker. Patient informed SW that she has a rollator and new stair lift in home. Patient informed SW that she has standard walker in home that belonged to her . Patient stated that the walker does not have wheels on it. SW informed patient that wheels can be purchased to place on walker, if the walker can adjust to her size. Patient informed SW that she felt discouraged that she was not doing as well with therapy as she would like. Patient informed SW that she would like to return home, but she does not want to prematurely discharge home without feeling comfortable. SW will continue to follow for support regarding discharge plans. DAJA Samayoa
[2023-10-02] MEDS: Zolpidem Tartrate 5 MG Tablet PO (20:38)
[2023-10-02] MEDS: Atorvastatin Calcium 10 MG Tablet 5 MG PO (20:42)
[2023-10-02 22:00] VITALS: PULSE 90; O2SAT 96
[2023-10-03] MEDS: oxyCODONE 5 MG Tablet PO ×2 (03:51→11:29)
[2023-10-03 04:08] VITALS: PULSE 82; O2SAT 92
[2023-10-03] MEDS: Saliva Substitute 237 ML BOTTLE 15 ML MUCOUS MEM ×3 (05:09→21:15)
[2023-10-03] MEDS: Acetaminophen 500 MG Tablet 1000 MG PO ×3 (05:09→21:17)
[2023-10-03 06:09] LABS: Absolute Lymphocyte Count 1.11 X10^3/uL (0.83-4.51); Absolute Neutrophil Count 4.9 X10^3/uL (2.0-7.7); Basophil# 0.01 X10^3/uL; Basophil% 0.1 % (0-1); Eosinophil# 0.12 X10^3/uL; Eosinophils% 1.7 % (0-5); Hematocrit 26.9 % (37-47); Hemoglobin 8.3 g/dL (12.0-15.0); Lymphocyte # 1.11 X10^3/ul (0.83-4.51); Lymphocyte % 15.6 % (19-41); Mean Corp Hgb Conc 30.9 g/dL (32-36); Mean Corpuscular Hgb 31.7 pg (27.0-32.0); Mean Corpuscular Volume 102.7 fL (81-99); Mean Platelet Vol. 8.6 fl (6.2-12.0); Monocyte# 0.95 X10^3/uL; Monocyte% 13.4 % (0-10); NRBC Flagged by Analyzer 0 % (0-5); Neutrophil # 4.85 X10^3/uL (2.7-7.7); Neutrophil % 68.2 % (47-70); Platelet Count 490 K/mm3 (150-450); RBC Distribution Width CV 13.6 % (11.6-14.6); RBC Distribution Width SD 49.8 fl (35.1-43.9); Red Blood Count 2.62 M/mm3 (4.2-5.4); White Blood Count 7.1 K/mm3 (4.4-11.0)
[2023-10-03 06:49] LABS: Anion Gap 8 (5-15); BUN 17 mg/dL (7-18); BUN/Creat Ratio 16.3 RATIO (10-20); Calcium,Total 8.6 mg/dL (8.5-10.1); Chloride 106 mmol/L (98-107); Creatinine, Serum 1.04 mg/dL (0.55-1.02); EST Glomerular Filtration Rate 54 mL/min (>60); Est Glom Filt Rate - Afr Amer 66 mL/min (>60); Estimated Creatinine Clearance 44.61 ml/min; Glucose 123 mg/dL (74-106); Potassium 4.2 mmol/L (3.5-5.1); Sodium Level 139 mmol/L (136-145)
[2023-10-03 08:51] VITALS: BP 138/57; PULSE 81; RESP 17; TEMP 36.7; O2SAT 94
[2023-10-03] MEDS: Ferrous Sulfate 325 MG Tablet PO (09:10)
[2023-10-03] MEDS: Menthol/Lanolin/Calamine/Znox 113 GM Tube 1 APPLIC TOPICAL ×2 (09:10→21:22)
[2023-10-03] MEDS: amLODIPine 2.5 MG Tablet PO (09:11)
[2023-10-03] MEDS: Pantoprazole Sodium 20 MG Tablet PO ×2 (09:11→21:16)
[2023-10-03] MEDS: APIXABAN 2.5 MG TABLET (WCH) PO ×2 (09:11→21:16)
[2023-10-03] MEDS: Citalopram 20 MG Tablet PO (09:11)
[2023-10-03] MEDS: Lisinopril 20 MG Tablet PO (09:12)
[2023-10-03] MEDS: Senna/Docusate Sodium 1 Tablet 2 TABLET PO ×2 (09:12→21:16)
[2023-10-03] MEDS: Tuberculin,Purif.prot.deriv. 50 TU/ML Vial 0.1 ML ID (11:34)
[2023-10-03] MEDS: tiZANidine HCl 2 MG Tablet PO (14:40)
[2023-10-03] MEDS: Atorvastatin Calcium 10 MG Tablet 5 MG PO (21:16)
[2023-10-03] MEDS: Zolpidem Tartrate 5 MG Tablet PO (21:17)
[2023-10-04] MEDS: oxyCODONE 5 MG Tablet PO ×3 (05:50→22:30)
[2023-10-04] MEDS: Acetaminophen 500 MG Tablet 1000 MG PO ×3 (05:50→20:12)
[2023-10-04] MEDS: Saliva Substitute 237 ML BOTTLE 15 ML MUCOUS MEM ×4 (05:50→20:08)
[2023-10-04 08:59] VITALS: BP 146/69; PULSE 84; RESP 18; TEMP 36.7; O2SAT 95
[2023-10-04] MEDS: Lisinopril 20 MG Tablet PO (09:02)
[2023-10-04] MEDS: amLODIPine 2.5 MG Tablet PO (09:02)
[2023-10-04] MEDS: Senna/Docusate Sodium 1 Tablet 2 TABLET PO ×2 (09:02→20:12)
[2023-10-04] MEDS: Pantoprazole Sodium 20 MG Tablet PO ×2 (09:02→20:12)
[2023-10-04] MEDS: Citalopram 20 MG Tablet PO (09:03)
[2023-10-04] MEDS: APIXABAN 2.5 MG TABLET (WCH) PO ×2 (09:04→20:11)
[2023-10-04] MEDS: Menthol/Lanolin/Calamine/Znox 113 GM Tube 1 APPLIC TOPICAL ×2 (09:05→20:09)
[2023-10-04] MEDS: tiZANidine HCl 2 MG Tablet PO (09:06)
--- NOTE | 2023-10-04 17:41 | NURSING ---
Pt complaining of pain to bilateral knees. Redness, inflammation, tender to touch noted to right knee. No drainage noted. Dr Chahal notified, entered orders for doppler BLE, Keflex 500mg q6hrs x7 days, and Doxycycline 100mg BID x7 days.
[2023-10-04] MEDS: Cephalexin 500 MG Capsule PO ×2 (18:44→23:06)
[2023-10-04] MEDS: Doxycycline 100 MG CAPSULE PO (20:10)
[2023-10-04] MEDS: Atorvastatin Calcium 10 MG Tablet 5 MG PO (20:11)
[2023-10-04] MEDS: Zolpidem Tartrate 5 MG Tablet PO (22:30)
[2023-10-05 04:44] VITALS: PULSE 74; O2SAT 94
[2023-10-05] MEDS: Saliva Substitute 237 ML BOTTLE 15 ML MUCOUS MEM ×4 (05:21→20:47)
[2023-10-05] MEDS: Cephalexin 500 MG Capsule PO ×4 (05:22→23:03)
[2023-10-05] MEDS: Acetaminophen 500 MG Tablet 1000 MG PO ×3 (05:23→20:51)
[2023-10-05] MEDS: Lisinopril 20 MG Tablet PO (09:58)
[2023-10-05] MEDS: Ferrous Sulfate 325 MG Tablet PO (09:58)
[2023-10-05] MEDS: Pantoprazole Sodium 20 MG Tablet PO ×2 (09:58→20:50)
[2023-10-05] MEDS: Citalopram 20 MG Tablet PO (09:59)
[2023-10-05] MEDS: amLODIPine 2.5 MG Tablet PO (09:59)
[2023-10-05] MEDS: Senna/Docusate Sodium 1 Tablet 2 TABLET PO ×2 (09:59→20:51)
[2023-10-05] MEDS: Doxycycline 100 MG CAPSULE PO ×2 (10:00→20:49)
[2023-10-05] MEDS: APIXABAN 2.5 MG TABLET (WCH) PO ×2 (10:00→20:50)
[2023-10-05] MEDS: oxyCODONE 5 MG Tablet PO ×3 (10:03→23:09)
[2023-10-05] MEDS: Menthol/Lanolin/Calamine/Znox 113 GM Tube 1 APPLIC TOPICAL ×2 (10:05→20:48)
[2023-10-05] MEDS: tiZANidine HCl 2 MG Tablet PO (13:50)
[2023-10-05 14:18] VITALS: BP 97/61; PULSE 75; RESP 18; TEMP 36.5; O2SAT 95
[2023-10-05] MEDS: Atorvastatin Calcium 10 MG Tablet 5 MG PO (20:52)
[2023-10-05] MEDS: Zolpidem Tartrate 5 MG Tablet PO (23:04)
[2023-10-06] MEDS: Saliva Substitute 237 ML BOTTLE 15 ML MUCOUS MEM ×4 (05:01→21:29)
[2023-10-06] MEDS: Cephalexin 500 MG Capsule PO ×4 (05:01→22:53)
[2023-10-06] MEDS: Acetaminophen 500 MG Tablet 1000 MG PO ×3 (05:01→21:33)
[2023-10-06] MEDS: oxyCODONE 5 MG Tablet PO ×3 (05:02→19:55)
[2023-10-06 06:02] LABS: Hematocrit 28.4 % (37-47); Hemoglobin 8.9 g/dL (12.0-15.0)
[2023-10-06] MEDS: amLODIPine 2.5 MG Tablet PO (08:33)
[2023-10-06] MEDS: Citalopram 20 MG Tablet PO (08:33)
[2023-10-06] MEDS: Pantoprazole Sodium 20 MG Tablet PO ×2 (08:33→21:32)
[2023-10-06] MEDS: APIXABAN 2.5 MG TABLET (WCH) PO ×2 (08:33→21:31)
[2023-10-06] MEDS: Doxycycline 100 MG CAPSULE PO ×2 (08:33→21:31)
[2023-10-06] MEDS: Lisinopril 20 MG Tablet PO (08:33)
[2023-10-06] MEDS: Senna/Docusate Sodium 1 Tablet 2 TABLET PO ×2 (08:34→21:32)
[2023-10-06] MEDS: Menthol/Lanolin/Calamine/Znox 113 GM Tube 1 APPLIC TOPICAL ×2 (08:34→21:30)
[2023-10-06] MEDS: tiZANidine HCl 2 MG Tablet PO ×2 (08:36→21:35)
[2023-10-06 08:38] VITALS: BP 130/65; PULSE 87; RESP 16; TEMP 36.3; O2SAT 96
[2023-10-06] MEDS: Atorvastatin Calcium 10 MG Tablet 5 MG PO (21:31)
[2023-10-06] MEDS: Zolpidem Tartrate 5 MG Tablet PO (22:52)
[2023-10-07] MEDS: oxyCODONE 5 MG Tablet PO ×2 (04:07→17:29)
[2023-10-07] MEDS: Cephalexin 500 MG Capsule PO ×4 (05:35→22:46)
[2023-10-07] MEDS: Saliva Substitute 237 ML BOTTLE 15 ML MUCOUS MEM ×3 (05:35→20:26)
[2023-10-07] MEDS: Acetaminophen 500 MG Tablet 1000 MG PO ×3 (05:36→20:27)
--- NOTE | 2023-10-07 08:48 | PCM.PN.ORT ---
Subjective Subjective Patient seen and examined she is doing well, no fevers chills nausea vomiting shortness of breath or chest pain ambulating well with physical therapy reportedly by patient Objective Data Objective Data Vital Signs: Vital Signs Temp Pulse Resp BP Pulse Ox O2 Del Method 97.4 F L 87 16 130/65 H 96 Room Air 10/06/23 08:38 10/06/23 08:38 10/06/23 08:38 10/06/23 08:38 10/06/23 08:38 10/06/23 10:00 Oxygen Delivery Method Room Air Weight: 181 lb 12.8 oz Body Mass Index (BMI) 32.2 Intake & Output: Intake and Output for Last 24 Hours 10/05/23 10/06/23 10/07/23 23:59 23:59 23:59 Intake Total 480 / 480 360 / 360 Balance 480 / 480 360 / 360 Lab / Micro Data 10/06/23 05:16 10/03/23 05:20 Micro: Microbiology 09/26/23 20:50 Stool Stool Occult Blood (MARIAM) - Final Physical Exam Const alert, oriented x3 and no apparent distress Extremity Extremity Narrative: Bilateral lower extremities incisions well-approximated no drainage minimal ecchymosis in lower extremities from surgery there is lower extremity edema. Mild low-grade intensity erythema lower incisional areas likely just hyperemic from healing. Neurovascular intact bilateral lower extremity. Assessment & Plan Assessment/Plan (1) S/P total knee arthroplasty: QUALIFIERS: Laterality: bilateral Qualified Code(s): Z96.653 - Presence of artificial knee joint, bilateral PLAN: Plan Status post bilateral total knee arthroplasty 09/23/2023 PT OT weightbearing as tolerated encourage full knee extension and flexion DVT prophylaxis Patient started on doxycycline and Keflex for superficial erythema around incisions okay to complete this course If erythema spreads or becomes more intense or drainage ensues please notify me incisions look good today Would recommend continuing her Eliquis for 4 weeks postop Follow-up with me 6 weeks postop Please have luisito removed 10/10/2023.
[2023-10-07 09:00] VITALS: BMI 31.6
[2023-10-07] MEDS: Menthol/Lanolin/Calamine/Znox 113 GM Tube 1 APPLIC TOPICAL (09:59)
[2023-10-07] MEDS: Ferrous Sulfate 325 MG Tablet PO (09:59)
[2023-10-07] MEDS: Lisinopril 20 MG Tablet PO (10:00)
[2023-10-07] MEDS: APIXABAN 2.5 MG TABLET (WCH) PO ×2 (10:00→20:31)
[2023-10-07] MEDS: Senna/Docusate Sodium 1 Tablet 2 TABLET PO ×2 (10:01→20:30)
[2023-10-07] MEDS: Doxycycline 100 MG CAPSULE PO ×2 (10:01→20:30)
[2023-10-07] MEDS: amLODIPine 2.5 MG Tablet PO (10:01)
[2023-10-07] MEDS: Pantoprazole Sodium 20 MG Tablet PO ×2 (10:01→20:33)
[2023-10-07] MEDS: Citalopram 20 MG Tablet PO (10:02)
[2023-10-07 10:05] VITALS: BP 128/61; PULSE 79
[2023-10-07 10:15] VITALS: PULSE 75; RESP 18; O2SAT 93
--- NOTE | 2023-10-07 10:34 | NURSING ---
IN TO SEE PT. GABRIEL ARE TO COME OUT 10/10/23 AND PT IS TO FOLLOW UP IN 6 WEEKS. RN AWARE
--- NOTE | 2023-10-07 10:38 | NURSING ---
PER THERAPY PT IS AB MAUDE IN ROOM AFTER ADL'S.
[2023-10-07 13:43] VITALS: BP 158/69; PULSE 88; RESP 16; TEMP 36.2; O2SAT 96
--- NOTE | 2023-10-07 16:45 | CASEMGMT ---
Addendum entered by Paulie Ambrosio 10/07/23 17:57: SW provided patient list of Home Health Care providers at bedside. Patient was speaking with son on phone upon arrival. Patient requested change in discharge date. Patient's son requested to transport patient home on 10/10/2023 in the afternoon after work around 4:15PM. Discharge 10/10/2023 : Home with home health PT/OT/ST/SN Original Note: Social Work SW received [facility] Notice of Medicare Non-Coverage for current assisted facility services will end on 10/10/2023. SW met with patient at bedside to notify of Medicare Non-Coverage of current SNF services on 10/10/2023. Patient informed SW that she is agreeable to discharge. Patient has been granted to be up ad gilberto by therapy services. Patient informed SW that she would like to discharge on Friday, but due to son's work schedule, she will discharge Friday morning, 10/11/2023. SW informed patient of her Medicare Right to appeal. Patient declined to appeal at this time. Patient provided verbal understanding of discharge and provided signature for NOMNC. Patient was provided copy of NOMNC at bedside. Therapy informed SW that the patient is being recommended for outpatient therapy by ortho physician. Therapy is currently recommending home health care services for 2 weeks before start of outpatient therapy. Patient informed SW that she would like to discharge home with home health care services. SW informed patient that a home health care provider list will be provided at bedside. SW to provide patient with home health care provider list with geographic area, medical needs, and within insurance network via [employer] Guide. Discharge 10/11/2023 : Home with home health PT/OT/SN/ST DAJA Samayoa
--- NOTE | 2023-10-07 20:02 | NURSING ---
Per ELECTRONIC MASKING SYSTEM OPERATOR's report, resident is refusing to wear b/l polar cares this hs.
--- NOTE | 2023-10-07 20:02 | PCM.DC.SUM ---
Providers Date of Admission: 09/25/23 Primary Care Physician: Dr. Lay Kaur MD Reason For Visit: BILATERAL TOTAL KNEE REPLACEMENT Diagnosis Discharge Diagnosis (1) S/P total knee arthroplasty: Status: Acute Code(s): Z96.659 - Presence of unspecified artificial knee joint Qualifiers: Laterality: bilateral Qualified Code(s): Z96.653 - Presence of artificial knee joint, bilateral Medications at Discharge Home Medications amlodipine 2.5 mg tablet 2.5 mg PO DAILY BP 01/24/19 lisinopril 20 mg tablet 20 mg PO DAILY BP 01/24/19 simvastatin 20 mg tablet 20 mg PO DAILY CHOLESTEROL 01/24/19 zolpidem 10 mg tablet 10 mg PO QHS PRN Insomnia 01/24/19 citalopram 20 mg tablet 20 mg PO DAILY DEPRESSION 12/16/22 ferrous sulfate 325 mg (65 mg iron) tablet 325 mg PO QODAY SUPPLEMENT 08/25/23 tizanidine 4 mg tablet 4 mg PO PRN PRN muscle pain 08/25/23 acetaminophen 500 mg tablet 1,000 mg (2 x 500 mg) PO Q8 #0 tabs 10/07/23 apixaban 5 mg tablet (Eliquis) 2.5 mg (1/2 x 5 mg) PO BID 3 days #3 tabs 10/07/23 oxycodone 5 mg tablet 5 mg PO Q6H PRN PRN Pain Score 1-10 7 days #28 tabs 10/07/23 pantoprazole 20 mg tablet,delayed release 20 mg PO BID 30 days #60 tabs 10/07/23 saliva substitute combo no.9 (Biotene Dry Mouth Oral Rinse mouthwash) 15 ml mucous membrane 4X/DAY #0 mL 10/07/23 sennosides 8.6 mg-docusate sodium 50 mg tablet (Stool Softener-Stimulant Laxative) 2 tab PO BID 30 days #120 tabs 10/07/23 Hospital Course Operations total knee replacement (Bilateral) Procedures None Summary of Care Provided Minutes Spent on Discharge: 35 Hospital Course: 77 year old female with below past medical history hospitalized for bilateral total knee arthroplasty 09/23/[address] Farrar, admitted to TCU with debility, here for rehabilitation, strengthening, prior to discharge home with son. Discharge home with son 10/11/2023, [facility] PT/OT/ST/SN. Physical Exam Const alert General Appearance: cooperative HEENT normocephalic Eyes PERRL and EOMs intact bilaterally Neck supple, no JVD and no carotid bruits Resp normal respiratory effort, normal air movement and clear to auscultation bilaterally Cardio regular rate and regular rhythm GI normal to inspection, nondistended, normoactive bowel sounds, non-tender and non-distended Extremity normal capillary refill General Extremity: Negative for edema Skin no rashes or lesions noted General Skin Exam: no breakdown Psych affect normal Appearance: appropriate Weight / BMI Weight Weight: 80.876 kg Body Mass Index (BMI) 31.6 ABG / Lab / Microbiology Data 10/06/23 05:16 10/03/23 05:20 Microbiology: Microbiology 09/26/23 20:50 Stool Stool Occult Blood (MARIAM) - Final D/C Instructions Discharge Diet: No restrictions Discharge Activity: Return to Normal Activity, May Shower and Use Walker Weight Bearing Status: Weight bearing as tolerated Call your doctor if you observe: Fever of 101 or Higher, Inability to urinate, Inability to have a bowel movement, Shortness of breath, Dizziness, Fainting spells, Swelling in the ankles, Chest pain and Uncontrolled pain Additional Instructions: Discharge home with son 10/11/2023, [facility] PT/OT/ST/ Please Follow Up With: Dr. Farrar When: As scheduled. Meaningful Use Info Meaningful Use Meaningful Use Diagnoses (Choose all that apply): None applicable Ischemic Stroke Statin Dosing Therapy Reference: STATIN DOSE THERAPY REFERENCE: * Patients > 75 years receive moderate or high dose statin therapy. * Patients 75 years or YOUNGER should receive HIGH intensity statin dose unless contraindicated. You will be required to document reason for non-treatment if statin daily dose does not meet guidelines. HIGH DOSE STATIN THERAPY DAILY Atorvastatin > than or = to 40 mg Rosuvastatin > than or = to 20 mg Amlodipine + Atorvastatin > than or = to 2.5/40 mg Ezetimibe + Simvastatin 10/80 mg Simvastatin 80mg Discharge Plan Admission Admit Date/Time: 09/25/23 18:34 Primary Reason for Your Visit: Debility. Attending Provider: Lilian Owens Primary Care Provider: Lay Kaur Instructions Additional Instructions / Restrictions: Discharge home with son 10/11/2023, [facility] PT/OT/ST/ Discharge Orders/Prescriptions Prescriptions: New acetaminophen 500 mg Tablet 1,000 mg PO Q8 Qty: 0 0RF sennosides-docusate sodium [Stool Softener-Stimulant Laxat] 8.6-50 mg Tablet 2 tab PO BID 30 Days Qty: 120 0RF pantoprazole 20 mg Tablet,Delayed Release (Dr/Ec) 20 mg PO BID 30 Days Qty: 60 0RF oxycodone 5 mg Tablet 5 mg PO Q6H PRN PRN (Reason: Pain Score 1-10) 7 Days Qty: 28 0RF Eliquis 5 mg Tablet 2.5 mg PO BID 3 Days Qty: 3 0RF Biotene Dry Mouth Oral Rinse Mouthwash 15 ml mucous membrane 4X/DAY Qty: 0 0RF Continued citalopram 20 mg tablet 20 mg PO DAILY Patient Comments: Take 1 tablet by mouth once daily. tizanidine 4 mg tablet 4 mg PO PRN PRN (Reason: muscle pain) Patient Comments: Take 1/2 -1 tablet by mouth every 8 hours as needed (muscle spasms). ferrous sulfate 325 mg (65 mg iron) tablet 325 mg PO QODAY lisinopril 20 MG tablet 20 mg PO DAILY Patient Comments: Take 1 tablet by mouth once daily. amlodipine 2.5 MG tablet 2.5 mg PO DAILY Patient Comments: Take 1 tablet by mouth once daily. simvastatin 20 MG tablet 20 mg PO DAILY Patient Comments: Take 1 tablet by mouth daily at bedtime. zolpidem 10 MG tablet 10 mg PO QHS PRN (Reason: Insomnia) Patient Comments: TAKE 1 TABLET BY MOUTH AT BEDTIME NEEDED for insomnia. Discontinued miscellaneous medical supply [facility] [place] 1 ea miscellaneous .1 YEAR Qty: 1 0RF Rx Instructions: HANDICAP PLACARD, 1 YEAR acetaminophen 500 mg tablet 1,000 mg PO Q6H PRN Qty: 100 0RF Eliquis 2.5 mg tablet 2.5 mg PO BID Qty: 40 0RF oxycodone 5 mg tablet 5 - 10 mg PO Q4H PRN (Reason: pain) 7 Days Qty: 60 0RF Referrals / Follow Up: Mauro Farrar DO [Med Staff - Active Staff] - (Follow-up 6 weeks post-op (surgery on 09/23/23)) Lay Kaur MD [Primary Care Provider] - Disposition Disposition (needs filled in before D/C Order can be placed): Home Health Service
[2023-10-07] MEDS: Atorvastatin Calcium 10 MG Tablet 5 MG PO (20:32)
[2023-10-07] MEDS: Zolpidem Tartrate 5 MG Tablet PO (22:46)
[2023-10-08] MEDS: Cephalexin 500 MG Capsule PO ×4 (05:32→22:48)
[2023-10-08] MEDS: oxyCODONE 5 MG Tablet PO ×3 (05:32→22:48)
[2023-10-08] MEDS: Acetaminophen 500 MG Tablet 1000 MG PO ×3 (05:32→20:34)
[2023-10-08] MEDS: Saliva Substitute 237 ML BOTTLE 15 ML MUCOUS MEM ×4 (05:35→20:33)
--- NOTE | 2023-10-08 08:20 | MDS.RN ---
Information for the MDS was obtained from review of the clinical record, interview of resident, staff, and direct observation of resident?s care.
[2023-10-08] MEDS: Senna/Docusate Sodium 1 Tablet 2 TABLET PO ×2 (09:55→20:34)
[2023-10-08] MEDS: Doxycycline 100 MG CAPSULE PO ×2 (09:56→20:34)
[2023-10-08] MEDS: Lisinopril 20 MG Tablet PO (09:56)
[2023-10-08] MEDS: amLODIPine 2.5 MG Tablet PO (09:56)
[2023-10-08] MEDS: Pantoprazole Sodium 20 MG Tablet PO ×2 (09:56→20:34)
[2023-10-08] MEDS: Citalopram 20 MG Tablet PO (09:56)
[2023-10-08] MEDS: APIXABAN 2.5 MG TABLET (WCH) PO ×2 (09:56→20:34)
[2023-10-08] MEDS: tiZANidine HCl 2 MG Tablet PO (09:57)
[2023-10-08 10:03] VITALS: BP 121/47; PULSE 82
--- NOTE | 2023-10-08 10:28 | NURSING ---
NO BM IN 3 DAYS,PT DOES HAVE SCHEDULED SENNA. PT DID AGREE TO TRY PRUNE JUICE.
[2023-10-08 14:05] VITALS: BP 111/60; PULSE 74; RESP 14; TEMP 36.2; O2SAT 95
--- NOTE | 2023-10-08 16:17 | CASEMGMT ---
Addendum entered by Paulie Ambrosio 10/08/23 18:14: Discharge: Home with home health PT/OT/SN/STABLEHAND/ST Original Note: Social Work- Discharge plan SW spoke with patient at bedside per patient request. Patient will be discharging home with home health care services. Patient is requesting for referral to be submitted to [facility] and [facility] for home health care services. SW discussed home health care services provided. Patient would like PT/OT/SN and STABLEHAND to assist with bathing. SW submitted referral via [employer] SW contacted [facility] via phone to notify of referral. Patient informed SW that she would like to have a mobile home park manager to assist with laundry and other technical support representative. SW provided list for home health aid via private duty care. DAJA Samayoa
[2023-10-08] MEDS: Menthol/Lanolin/Calamine/Znox 113 GM Tube 1 APPLIC TOPICAL (20:33)
[2023-10-08] MEDS: Atorvastatin Calcium 10 MG Tablet 5 MG PO (20:34)
[2023-10-08] MEDS: Zolpidem Tartrate 5 MG Tablet PO (22:48)
[2023-10-09] MEDS: Acetaminophen 500 MG Tablet 1000 MG PO ×3 (05:09→21:46)
[2023-10-09] MEDS: Cephalexin 500 MG Capsule PO ×4 (05:09→23:02)
[2023-10-09] MEDS: Saliva Substitute 237 ML BOTTLE 15 ML MUCOUS MEM ×4 (05:09→21:34)
[2023-10-09] MEDS: oxyCODONE 5 MG Tablet PO ×3 (05:10→19:45)
[2023-10-09] MEDS: Doxycycline 100 MG CAPSULE PO ×2 (08:40→21:42)
[2023-10-09] MEDS: Ferrous Sulfate 325 MG Tablet PO (08:40)
[2023-10-09] MEDS: Citalopram 20 MG Tablet PO (08:40)
[2023-10-09] MEDS: Pantoprazole Sodium 20 MG Tablet PO ×2 (08:41→21:45)
[2023-10-09] MEDS: amLODIPine 2.5 MG Tablet PO (08:41)
[2023-10-09] MEDS: APIXABAN 2.5 MG TABLET (WCH) PO ×2 (08:41→21:42)
[2023-10-09] MEDS: Lisinopril 20 MG Tablet PO (08:41)
[2023-10-09] MEDS: Senna/Docusate Sodium 1 Tablet 2 TABLET PO ×2 (08:41→21:45)
[2023-10-09] MEDS: tiZANidine HCl 2 MG Tablet PO ×2 (08:42→21:47)
[2023-10-09] MEDS: Menthol/Lanolin/Calamine/Znox 113 GM Tube 1 APPLIC TOPICAL ×2 (08:46→21:41)
--- NOTE | 2023-10-09 14:41 | MDS.RN ---
Pain interview for mds complete.
[2023-10-09 14:46] VITALS: BP 124/59; PULSE 63; RESP 16; TEMP 36.6; O2SAT 99
--- NOTE | 2023-10-09 15:36 | CASEMGMT ---
Social Work PLACIDO received notification from [facility] Diet Supervisor, Sarah confirming that the patient has been accepted by [facility] for home health care services with potential start of care on 10/13/2023. PLACIDO met with patient at bedside to notify of acceptance. Patient anticipates discharge home with home health care on 10/10/2023. Patient's son to provide transportation at discharge around 415P. DAJA Samayoa
[2023-10-09 20:08] VITALS: BP 128/66; PULSE 73; RESP 20; TEMP 36.5; O2SAT 92
[2023-10-09] MEDS: Atorvastatin Calcium 10 MG Tablet 5 MG PO (21:44)
[2023-10-09] MEDS: Zolpidem Tartrate 5 MG Tablet PO (23:03)
[2023-10-10 03:20] VITALS: PULSE 88; O2SAT 93
[2023-10-10] MEDS: oxyCODONE 5 MG Tablet PO ×2 (04:59→15:12)
[2023-10-10] MEDS: Cephalexin 500 MG Capsule PO ×2 (05:01→12:39)
[2023-10-10] MEDS: Saliva Substitute 237 ML BOTTLE 15 ML MUCOUS MEM ×2 (05:01→12:39)
[2023-10-10] MEDS: Acetaminophen 500 MG Tablet 1000 MG PO ×2 (05:02→13:16)
[2023-10-10 05:56] LABS: Absolute Lymphocyte Count 1.42 X10^3/uL (0.83-4.51); Absolute Neutrophil Count 3.1 X10^3/uL (2.0-7.7); Basophil# 0.04 X10^3/uL; Basophil% 0.8 % (0-1); Eosinophil# 0.13 X10^3/uL; Eosinophils% 2.4 % (0-5); Hematocrit 27.6 % (37-47); Hemoglobin 8.6 g/dL (12.0-15.0); Lymphocyte # 1.42 X10^3/ul (0.83-4.51); Lymphocyte % 26.7 % (19-41); Mean Corp Hgb Conc 31.2 g/dL (32-36); Mean Corpuscular Hgb 31.5 pg (27.0-32.0); Mean Corpuscular Volume 101.1 fL (81-99); Mean Platelet Vol. 8.4 fl (6.2-12.0); Monocyte# 0.64 X10^3/uL; NRBC Flagged by Analyzer 0 % (0-5); Neutrophil # 3.08 X10^3/uL (2.7-7.7); Neutrophil % 57.9 % (47-70); Platelet Count 535 K/mm3 (150-450); RBC Distribution Width CV 13.2 % (11.6-14.6); RBC Distribution Width SD 48.2 fl (35.1-43.9); Red Blood Count 2.73 M/mm3 (4.2-5.4); White Blood Count 5.3 K/mm3 (4.4-11.0)
--- NOTE | 2023-10-10 06:49 | NURSING ---
Surgical luisito removed from bilateral knees per order, 21 luisito removed from right knee, 20 luisito removed from left knee, no drainage noted, incisions are well approximated and healing, patient tolerated well.
[2023-10-10 07:19] LABS: Anion Gap 6 (5-15); BUN 27 mg/dL (7-18); BUN/Creat Ratio 23.3 RATIO (10-20); Calcium,Total 8.9 mg/dL (8.5-10.1); Chloride 105 mmol/L (98-107); Creatinine, Serum 1.16 mg/dL (0.55-1.02); EST Glomerular Filtration Rate 48 mL/min (>60); Est Glom Filt Rate - Afr Amer 58 mL/min (>60); Glucose 83 mg/dL (74-106); Potassium 3.9 mmol/L (3.5-5.1); Sodium Level 138 mmol/L (136-145)
[2023-10-10] MEDS: Menthol/Lanolin/Calamine/Znox 113 GM Tube 1 APPLIC TOPICAL (08:08)
[2023-10-10] MEDS: Doxycycline 100 MG CAPSULE PO (08:08)
[2023-10-10] MEDS: Pantoprazole Sodium 20 MG Tablet PO (08:08)
[2023-10-10] MEDS: APIXABAN 2.5 MG TABLET (WCH) PO (08:08)
[2023-10-10] MEDS: amLODIPine 2.5 MG Tablet PO (08:08)
[2023-10-10] MEDS: Lisinopril 20 MG Tablet PO (08:08)
[2023-10-10] MEDS: Senna/Docusate Sodium 1 Tablet 2 TABLET PO (08:08)
[2023-10-10] MEDS: Citalopram 20 MG Tablet PO (08:08)
[2023-10-10] MEDS: tiZANidine HCl 2 MG Tablet PO (09:39)
--- NOTE | 2023-10-10 10:09 | CASEMGMT ---
Addendum entered by Paulie Ambrosio 10/10/23 12:54: SW met with patient to complete MDS. BIM () and PhQ-2 () DAJA Samayoa Addendum entered by Paulie Ambrosio 10/10/23 10:12: Update [facility] start of care will be 10/11/2023 Original Note: Social Work- Update to discharge Due to staffing [facility] is unable to provide a nurse for initial visit. PT will be assessing patient on first visit. Home Health care nursing support will be added after subsequent visit for initial start of care. Patient anticipates start of home health care services on Friday10/13/2023. DAJA Samayoa
[2023-10-10 10:15] VITALS: BP 153/60; PULSE 70; RESP 16; TEMP 36.7; O2SAT 97
--- NOTE | 2023-10-10 12:50 | NURSING ---
Updated that a patient on the unit tested covid positive. Patient does not want family notified.
== END 2023-10-10 17:35 | disposition home health service (06) | DRG 560 ==
PROVIDERS: Family Medicine Geriatric Medicine; Admitting Provider Internal Medicine; PCP Internal Medicine; Referring Provider Internal Medicine; Visit Provider Internal Medicine
DX: Z47.1 Aftercare following joint replacement surgery (principal); D62 Acute posthemorrhagic anemia; N18.30 Chronic kidney disease, stage 3 unspecified; F32.A Depression, unspecified; I12.9 Hypertensive chronic kidney disease with stage 1 through stage 4 chronic kidney disease, or unspecified chronic kidney disease; E78.00 Pure hypercholesterolemia, unspecified; K21.9 Gastro-esophageal reflux disease without esophagitis; F41.9 Anxiety disorder, unspecified; M35.00 Sjogren syndrome, unspecified; G89.18 Other acute postprocedural pain; Z79.01 Long term (current) use of anticoagulants; Z96.653 Presence of artificial knee joint, bilateral; Z79.899 Other long term (current) drug therapy; G47.00 Insomnia, unspecified
CPT/HCPCS: 36415; 80048; 82274; 85014; 85018; 85025; 85027; 87811; 92507; 92523; 92610; 94667; 97110; 97116; 97162; 97166; 97530; 97535; 97802; A4216

== ENCOUNTER → 2023-10-06 | Outpatient (CLI) | payer MEDICARE, SELFPAY ==
--- NOTE | 2023-10-06 10:00 | VDLE_ITS ---
Reason For Study: BLE Swelling RIGHT LEFT GSV is normal. GSV is normal. CFV is compressible, spontaneous, phasic, CFV is compressible, spontaneous, phasic, competent and demonstrates normal competent, and demonstrates normal augmentation. augmentation. FV is compressible, spontaneous, phasic, FV is compressible, spontaneous, phasic, competent and demonstrates normal competent and demonstrates normal augmentation. augmentation. POP V is compressible, spontaneous, phasic, POP V is compressible, spontaneous, phasic, competent and demonstrates normal competent and demonstrates normal augmentation. augmentation. T/P Trunk is compressible. T/P Trunk is compressible. PTV is compressible. PTV is compressible. RT PerV is compressible. LT PerV is compressible. Procedure This is a venous duplex using B-mode, color flow and spectral Doppler. Exam performed portable in patient room. The exam was diagnostic. A preliminary report was called and/or faxed to TCU RN. VL/Venous Duplex US - Gabriel Extrem Interpretation Summary No evidence for acute deep venous thrombosis bilateral lower extremities with p atent and compressible bilateral great saphenous veins. Ordering Physician: Frederick Chahal Chi Referring Physician: Frederick Chahal Chi Performed By: Ancelmo Vieyra RVT
== END | disposition home or self-care (01) ==
LOC: CVS 09:41
PROVIDERS: PCP Internal Medicine; Referring Provider Family Medicine Geriatric Medicine; Visit Provider Family Medicine Geriatric Medicine
DX: M79.89 Other specified soft tissue disorders (principal); R60.0 Localized edema
CPT/HCPCS: 93970

== ENCOUNTER 2024-03-29 14:00 | Outpatient (RCR) | payer MEDICARE, SELFPAY ==
--- NOTE | 2023-11-17 13:17 | HP.PTEVAL_ITS ---
Patient's Visit Information Visit Information Visit Information: AMOR PARISI (PERKY) is a 77 year old F referred to Physical Therapy by Dr. Mauro Farrar DO with a diagnosis of . Date of Evaluation: 11/05/23 Physical Therapist: Efren Osuna DPT Visit Plan Frequency: 2-3x /Week Duration: 6 Weeks Plan: Start with ROM progressing towards 0-0-120deg. Add in gait with SPC progressing to no AD. Progress strengthening throughout BLEs. May use ice and vaso as needed. Subjective Subjective: Pt. is here today for her initial evaluation with diagnosis of B TKA. DOS: 09/23/23. Pt. reports overall still having some higher levels of pain. Pt. was on TCU for 3 weeks then did 2 weeks of HH PT. Pt. arrives today with cane, but using facility WC. Pt. reports it would be too far for her to walk due to the pain. Pt. reports working on stretching and ROM at home. Pt. has tried to work on some walking, but still has pain. She has not left the home much either. She is currently not driving. Pt. feels like her L knee is more sore then the L and well as more swollen. Pt. reports trying to so as much as she can. No N/T noted. Pt is hopeful to reduce her symptoms in order to get back to all recreational walking without issues. Pain L knee: Pain Intensity (Out of 10): 8 Pain Intensity Range: 4 and 9 R knee: Pain Intensity (Out of 10): 7 Pain Intensity Range: 3 and 8 Objective Objective: POSTURE: pt. stands with use of cane. Pt. has general flexed posture with lacking TKE in BLEs. L worse than R. Slight wt. shift ro R side. PALPATION: pt. has well healing incisions. No signs of infection noted. Negative homans sign. NEURO: Pt. has normal sensation in BLEs. Normal achilles DTR noted. Pt. is able to rise on heels and toes with balance aide. ROM: L knee: 0-5-118deg. R knee: 0-8-115deg. Pt. has tightness in B HS as well. MMT: RLE: knee ext 16.1#, flexion 12.3#; hip: flexion 8.9#, abd 11.1#. LLE: knee: ext 15.3#, flexion 11.9#; hip: flex 9.4#, abd 12.2#. GAIT: Pt. ambulates with SPC with decent tolerance. She does lack TKE bilaterally, but has normal knee flexion. STAIRS: Pt. is able to negotiate well. Pt. does have more difficulty with ascending, but difficulty with controlled lowering. TU.9sec 30sec sit to stand rep test: 5 Balance/Special Test Scores Lower Extremity Functional Score: 40 Goals Goal 1:: LTG: Pt. to be I with HEP for BLE ROM and strenghtening. Goal Time Frame: 4-6 Weeks Goal 2:: LTG: Pt. to have increased B knee ROM to 0-0-120deg. allowing for proper gait and stair negotiation. Goal Time Frame: 4-6 Weeks Goal 3:: LTG: Pt. to have increased strength throughout BLEs by 5-10# allowing for I with all functional mobility. Goal Time Frame: 6-8 Weeks Goal 4:: LTG: Pt. to complete TUG less than 10 sec indicating proper stability and safety with functional mobility. Goal Time Frame: 4-6 Weeks Rehabilitation Potential Rehabilitation Potential: Excellent Anticipated Interventions Patient/Client Instruction: Educate patient on: Condition, Plan of Care, Risk Factors and Benefits of Fitness Program For the Purpose of:: To improve decision making, To facilitate caregiver knowledge, To improve self management, To prevent re-injury and To improve ability to perform tasks related to life management Cryotherapy (ice pack, ice massage): Yes Vasopneumatic device: Yes For the Purpose of:: To decrease pain, To decrease swelling/inflammation, To increase ROM, To improve nutrient delivery to tissue, To increase oxygenation perfusion and To improve muscle performance and motor function Text: Thank you for the opportunity to evaluate your patient. For Medicare and Medicare HMO plans, please review the plan of care and approve it. It will need to be FAXED BACK to us at [phone] for Medicare purposes. For Medicare only, by signing this I certify the plan of care. Please let me know if there are questions or concerns regarding this plan of care. Physician Signature: Date:
--- NOTE | 2024-02-18 15:15 | HP.PTREVAL_ITS ---
Re-Evaluation Intro: Dr. Mauro Farrar, DO, It has been my pleasure to treat AMOR PARISI (PERKY) over the last 17 visits for B TKA. Please see the progress note below for an update on the physical therapy plan of care! Subjective Subjective: pt. reports overall doing better. PT. reports being 75% better overall. Pt. is ambulating with SPC, but continues to have an antalgic like pattern. She is having pain at her L lateral knee, especially when she walks. She reports not doing much of her exercises at home, tends to forget. Objective Objective/Function: Pt. has good ROM in B knees, 120deg of flexion bilaterally. R knee full extension without issues. Pt. is able to achieve full extension on LLE, but has some increased pain with doing so. She reports increased pain at lateral knee. Tender to palpation of distal IT band. TU.1sec without AD, 13.3sec with SPC. MMT: Pt. has equal strength in BLEs, except increased pain with knee extension on L side. Pt. does have marked weakness in B hip abductors RLE 13.1#, LLE 9.7#. 30sec sit to stand rep test: 9 without use of UEs. Pt. has tight L IT band on L side as well. GAIT: pt. ambulates with SPC, but has marked antalgic pattern during L stance phase resulting in decreased R step length and limping like pattern. STAIRS: step to pattern loading RLE with descending, ascending with reciprocal. Using BRH to complete. She has started to develop a distal IT band issue on the R side. Her knee it self looks good and has good strength in quad and HS. I would really like her to be able to walk without antalgic pattern, my fear is she will walk less and slowly decline with her mobility if this does not improving. I am requesting more visits to work on her IT band length, glute med strengthening and progression of her gait mechanics to increase overall independence and stability at home. Plan Plan Plan: Asking for further Visits to work on glute med strengthening, IT band s tretching and gait mechanics. Balance/Gait/Functional tests Balance/Special Test Scores Lower Extremity Functional Score: 50 TUG Test Time Seconds: 13.3 Tug Test: <20 sec.=mostly independent 30 Second Chair Rise Test Seconds: 9 Goals Goals Goal 1:: LTG: Pt. to be I with HEP for BLE ROM and strenghtening. Goal Time Frame: 4-6 Weeks Goal Progress: Progressing Goal 2:: LTG: Pt. to have increased B knee ROM to 0-0-120deg. allowing for proper gait and stair negotiation. Goal Time Frame: 4-6 Weeks Goal Progress: Goal Met Goal 3:: LTG: Pt. to have increased strength throughout BLEs by 5-10# allowing for I with all functional mobility. Goal Time Frame: 6-8 Weeks Goal Progress: Progressing Goal 4:: LTG: Pt. to complete TUG less than 10 sec indicating proper stability and safety with functional mobility. Goal Time Frame: 4-6 Weeks Goal Progress: Progressing Goal 5:: LTG: Pt. to ambulate with normal gait pattern with SPC iwthout increase in L knee pain. Goal Time Frame: 2-4 Weeks Goal Progress: Progressing Goal 6:: LTG: Pt. to have 0-1/10 pain at L lateral knee allowing for increased tolerance to all functional mobility. Goal Time Frame: 4-6 Weeks Goal Progress: Progressing Anticipated Interventions Anticipated Interventions Patient/Client Instruction: Educate patient on: Condition, Plan of Care, Risk Factors and Benefits of Fitness Program For the Purpose of:: To improve decision making, To facilitate caregiver knowledge, To improve self management, To prevent re-injury and To improve ability to perform tasks related to life management Cryotherapy (ice pack, ice massage): Yes Vasopneumatic device: Yes For the Purpose of:: To decrease pain, To decrease swelling/inflammation, To increase ROM, To improve nutrient delivery to tissue, To increase oxygenation perfusion and To improve muscle performance and motor function Re-Evaluation Ending Re-evaluation ending: Please do not hesitate to contact me at [phone] by phone or if you have questions or concerns regarding this new plan of care! Sincerely, Efren Osuna DPT
--- NOTE | 2024-03-29 15:06 | HP.PTREVAL_ITS ---
Re-Evaluation Intro: Dr. Mauro Farrar, DO, It has been my pleasure to treat AMOR PARISI (PERKY) over the last 26 visits for B TKA. Please see the progress note below for an update on the physical therapy plan of care! Subjective Subjective: Pt. reports being 60% better overall. Pt. is still having pain at the L knee stiff. It feels like I have a tourniquet at my left knee. Pt. reports no N/T noted. Objective Objective/Function: ROM: AROM: L knee: 0-2-114deg. R knee: 0-0-121deg PROM: L knee 0-0-120deg. 0-0-124deg. MMT: LLE: knee: ext 26.6#, flexion: 28.0#. hip flexion 10.5#, abd 20.8# RLE: knee: ext 22.5#, flex: 24.6#; hip: flexion 19.9#, abd 29.7# GAIT: without AD patient has marked antalgic pattern. She does lack some TKE, but I really question if her issue is more from her hip. She lacks L hip extensi on and most likely hip arthritis TU.9sec without AD, 14.2sec with SPC STAIRS: Pt. is able to ascend with 2 HR with step to pattern loading RLE only. Descending patient can complete with reciprocal pattern. 30 sec sit to stand rep test: 12 reps without use of UEs. Plan Plan Plan: I would like Presley to follow up with physician. She is still having issues with walking during L stance phase. She does seem to lack more TKE during L stance phase, but I really think her issue stems from her L hip. She has good L quad and HS strength (L better than R even). She has marked limited L hip extension and I believe this is causing her to get off her L hip during end of stance phase. I am sending her back to physician to determine best course of action. Pt. on hold until following up with physician. Balance/Gait/Functional tests Balance/Special Test Scores Lower Extremity Functional Score: 23 TUG Test Time Seconds: 14.9 Tug Test: <20 sec.=mostly independent 30 Second Chair Rise Test Seconds: 12 Goals Goals Goal 1:: LTG: Pt. to be I with HEP for BLE ROM and strenghtening. Goal Time Frame: 4-6 Weeks Goal Progress: Goal Met Goal 2:: LTG: Pt. to have increased B knee ROM to 0-0-120deg. allowing for proper gait and stair negotiation. Goal Time Frame: 4-6 Weeks Goal Progress: Goal Met Goal 3:: LTG: Pt. to have increased strength throughout BLEs by 5-10# allowing for I with all functional mobility. Goal Time Frame: 6-8 Weeks Goal Progress: Goal Met Goal 4:: LTG: Pt. to complete TUG less than 10 sec indicating proper stability and safety with functional mobility. Goal Time Frame: 4-6 Weeks Goal Progress: Progressing Goal 5:: LTG: Pt. to ambulate with normal gait pattern with SPC iwthout increase in L knee pain. Goal Time Frame: 2-4 Weeks Goal Progress: Progressing Goal 6:: LTG: Pt. to have 0-1/10 pain at L lateral knee allowing for increased tolerance to all functional mobility. Goal Time Frame: 4-6 Weeks Goal Progress: Progressing Anticipated Interventions Anticipated Interventions Patient/Client Instruction: Educate patient on: Condition, Plan of Care, Risk Factors and Benefits of Fitness Program For the Purpose of:: To improve decision making, To facilitate caregiver k nowledge, To improve self management, To prevent re-injury and To improve ability to perform tasks related to life management Cryotherapy (ice pack, ice massage): Yes Vasopneumatic device: Yes For the Purpose of:: To decrease pain, To decrease swelling/inflammation, To increase ROM, To improve nutrient delivery to tissue, To increase oxygenation perfusion and To improve muscle performance and motor function Re-Evaluation Ending Re-evaluation ending: Please do not hesitate to contact me at [phone] by phone or if you have questions or concerns regarding this new plan of care! Sincerely, Efren Osuna DPT
== END 2024-03-29 19:00 | disposition home or self-care (01) ==
LOC: PT 14:00
PROVIDERS: PCP Internal Medicine; Referring Provider Orthopaedic Surgery; Visit Provider Orthopaedic Surgery
DX: Z96.653 Presence of artificial knee joint, bilateral (principal)
CPT/HCPCS: 97016; 97110; 97140; 97162; 97530

== ENCOUNTER 2025-02-10 13:00 | Outpatient (RCR) | payer MEDICARE, SELFPAY ==
--- NOTE | 2025-01-04 08:19 | HP.PTEVAL_ITS ---
Patient's Visit Information Visit Information Visit Information: AMOR PARISI (PERKY) is a 79 year old F referred to Physical Therapy by Dr. Lay Kaur MD with a diagnosis of chronic sciatica and B hip bursitis. Date of Evaluation: 12/14/24 Physical Therapist: Efren Osuna DPT Visit Plan Frequency: 2x /Week Duration: 6 Weeks Plan: In aquatic setting: BLE and core strengthening, postural strengthening hip flexor, HS stretching functional mobility Subjective Subjective: Pt. is here today for her initial evaluation with diagnosis chronic sciatica and B hip bursitis. Pt. arrives with use of SPC. Pt. reports having pain with all walking, standing and movement. Not much pain with sitting. Pain at B lateral hips, posterior aspect of thighs and lumbar spine. Pt. reports having difficulty with getting around due to her pain. Pt. reports sleeping well. Pt. is hopeful to reduce pain in order to get out more and be able to tolerate going to grocery stores and other IADLs. Pain Lumbar spine: Pain Intensity (Out of 10): 5 Pain Intensity Range: 2 and 8 B hips: Pain Intensity (Out of 10): 6 Pain Intensity Range: 4 and 8 Objective Objective: POSTURE: Pt. has a general flexed posture. Pt. has and R lateral lean in stance. She has a general flexed posture as well. Pt. has difficulty correcting. PALPATION: P.t has tenderness at B greater trochanters, and throughout lumbar spine. Pt. has marked hypomobility with spring testing as well. NEURO: normal ROM: Lumbar spine: flexion min/mod loss increase NE, mod/max loss increase WN, SB mod loss blat increase NE, rotation mod loss bilat increase NW. Pt. has tight B HS and hip flexors. MMT: 4-/5 B hip strength throughout. Core strength: poor. distal LE 5-/5 BLE strength. GAIT: Pt. ambulates with SPC, but has marked flexed posture. Pt. has B decreased step length. Pt. marked antalgic pattern during L stance phase. Pt. reports increased B hip and lumbar spine pain with gait. Special Tests L/S Slump test left side: Positive L/S Slump test right side: Positive Lumbar Standing: Flexion - Mechanical Response: No effect Lumbar Standing: Flexion - Symptoms During Testing: Increases Lumbar Standing: Flexion - Symptoms After Testing: No worse Lumbar Standing: Extension - Mechanical Response: No effect Lumbar Standing: Extension - Symptoms During Testing: Increases Lumbar Standing: Extension - Symptoms After Testing: Worse Balance/Special Test Scores Oswestry Low Back Score: 27 TUG Test Time Seconds: 17.1 30 Second Chair Rise Test Seconds: 6 Goals Goal 1:: LTG: Pt. to be I with HEP. Goal Time Frame: 4-6 Weeks Goal 2:: STG: Pt. to be able to walk household distances 150'+ without increase in B hip and lumbar spine pain. Goal Time Frame: 2-4 Weeks Goal 3:: LTG: Pt to ambulate community distances 300'+ without increase in B hip or lumbar spine pain. Goal Time Frame: 4-6 Weeks Goal 4:: LTG: Pt. to have normal B HS and hip flexor length allowing for better pelvic positioning with functional mobility. Goal Time Frame: 4-6 Weeks Goal 5:: LTG: Pt. to have increased core and B hip strenght by 1/2 grade throughout. Goal Time Frame: 4-6 Weeks Rehabilitation Potential Physical Therapy Diagnosis: Pt. has signs and symptoms consistent with chronic sciatica and B hip bursitis. Pt. has marked lumbar hypomobility, BLE/core weakness and difficulty with walking. She would benefit from PT to address the above limitations. Rehabilitation Potential: Good Anticipated Interventions Patient/Client Instruction: Educate patient on: Condition, Plan of Care, Risk Factors and Benefits of Fitness Program For the Purpose of:: To foster healthy habits, To improve decision making, To facilitate caregiver knowledge, To improve self management, To prevent re- injury, To improve ability to perform tasks related to life management and To improve tolerance to ADL's Therapeutic Exercise to Include: Strength training, Power training, Endurance training, Postural training, Flexibilty training and In an aquatic setting For the Purpose of:: To decrease pain, To decrease swelling/inflammation, To increase ROM, To improve nutrient delivery to tissue, To increase oxygenation perfusion, To improve muscle performance and motor function, To improve ability to perform ADL's, To increase tolerance to activity/condition/position, To improve performance and independence with ADL's and To decrease level of supervision to perform tasks Text: Thank you for the opportunity to evaluate your patient. For Medicare and Medicare HMO plans, please review the plan of care and approve it. It will need to be FAXED BACK to us at [phone] for Medicare purposes. For Medicare only, by signing this I certify the plan of care. Please let me know if there are questions or concerns regarding this plan of care. Physician Signature: Date:
== END 2025-02-10 19:00 | disposition home or self-care (01) ==
LOC: PT 13:00
PROVIDERS: PCP Internal Medicine; Referring Provider Internal Medicine; Visit Provider Internal Medicine
DX: M54.42 Lumbago with sciatica, left side (principal); M54.41 Lumbago with sciatica, right side; M70.61 Trochanteric bursitis, right hip; M70.62 Trochanteric bursitis, left hip; G89.29 Other chronic pain
CPT/HCPCS: 97113; 97161